=== PATIENT | female | born 1965 | race African-American/Black ===

== ENCOUNTER 2017-05-30 17:45 | Emergency (ER) | payer OTHER, MEDICARE, MEDICAID ==
[2017-05-30 18:13] LABS: #Basophils 0.1 thou/uL (0.0-0.2); #Eosinphils 0.1 thou/uL (0.0-0.7); #Lymphocytes 2.8 thou/uL (1.20-3.40); #Monocytes 0.5 thou/uL (0.11-0.59); #Neutrophils 4.9 thou/uL (1.40-6.50); %Basophils 1.3 % (0.0-1.0); %Eosinophils 1.6 % (0.0-10.0); %Lymphocytes 33.2 % (21.0-51.0); %Monocytes 5.5 % (0.0-10.0); Hematocrit 31.9 % (36.0-47.0); Mean Platelet Volume 7.6 fL (7.4-10.4); Red Blood Cell (RBC) Count 3.63 mill/uL (4.20-5.40); White Blood Cell (WBC) Count 8.4 thou/uL (4.8-10.8)
[2017-05-30 18:41] LABS: ALT (SGPT) 7 U/L (8-55); AST (SGOT) 17 U/L (5-34); Alkaline Phosphatase 55 U/L (40-150); Anion Gap 18 mmol/L (10-20); BUN (Urea Nitrogen) 41 mg/dL (9.8-20.1); Bilirubin, Total 0.5 mg/dL (0.2-1.2); Calc. Creatinine Clearance 0 mL/min (70-130); Calcium 9.7 mg/dL (7.8-10.44); Carbon Dioxide 23 mmol/L (22-29); Chloride 104 mmol/L (98-107); Estimated GFR-MDRD 8; Globulin 4.3 g/dL (2.4-3.5); Protein, Total 8.4 g/dL (6.0-8.3)
[2017-05-30] MEDS ORDERED: Lorazepam 2 MG/ML VIAL ONE (18:56)
--- NOTE | 2017-05-30 19:25 | RAD ---
CHEST ONE VIEW PORTABLE: HISTORY: A 51-year-old female with dyspnea. COMPARISON: 10/19/2016. FINDINGS: Monitor leads overlie the chest. Right dual-lumen venous access catheter. Mild stable linear paren chymal changes in the left mid lung zone and right base. No confluent pneumonia, overt edema, or pl eural effusion. IMPRESSION: Minimal stable linear chronic changes bilaterally. No acute intrathoracic disease. POS: MONTY
== END 2017-05-30 19:32 | disposition home or self-care (01) ==
LOC: ERS 17:45
DX: R51 Headache (principal); R09.81 Nasal congestion; I12.9 Hypertensive chronic kidney disease with stage 1 through stage 4 chronic kidney disease, or unspecified chronic kidney disease; N18.9 Chronic kidney disease, unspecified; F20.9 Schizophrenia, unspecified; F31.9 Bipolar disorder, unspecified; F41.9 Anxiety disorder, unspecified
CPT/HCPCS: 71010; 80053; 85025; 93005; 96374; J2060

== ENCOUNTER 2017-07-21 00:45 | Observation (INO) | payer MEDICARE, MEDICAID ==
[2017-07-21 01:35] LABS: #Basophils 0.1 thou/uL (0.0-0.2); #Eosinphils 0.1 thou/uL (0.0-0.7); #Lymphocytes 3.3 thou/uL (1.20-3.40); #Monocytes 0.5 thou/uL (0.11-0.59); #Neutrophils 4.4 thou/uL (1.40-6.50); %Basophils 1.1 % (0.0-1.0); %Eosinophils 1.1 % (0.0-10.0); %Lymphocytes 39.2 % (21.0-51.0); %Monocytes 6.4 % (0.0-10.0); Hematocrit 36.5 % (36.0-47.0); Mean Platelet Volume 7.7 fL (7.4-10.4); Red Blood Cell (RBC) Count 4.02 mill/uL (4.20-5.40); White Blood Cell (WBC) Count 8.5 thou/uL (4.8-10.8)
[2017-07-21 01:40] LABS: PTT 29.4 SEC (22.9-36.1); Prothrombin Time 14.1 SEC (12.0-14.7)
[2017-07-21 01:53] LABS: Anion Gap 15 mmol/L (10-20); BUN (Urea Nitrogen) 45 mg/dL (9.8-20.1); Calc. Creatinine Clearance 0 mL/min (70-130); Calcium 9.8 mg/dL (7.8-10.44); Carbon Dioxide 20 mmol/L (22-29); Chloride 109 mmol/L (98-107); Estimated GFR-MDRD 6
[2017-07-21] MEDS ORDERED: Acetaminophen 500 MG TAB ONE (03:18)
[2017-07-21] MEDS ORDERED: Ondansetron ODT 4 MG TAB SL PRN (04:17)
[2017-07-21] MEDS ORDERED: Ondansetron HCl/PF 4 MG/2 ML Vial IVP PRN ×2 (04:17→07:12)
[2017-07-21] MEDS ORDERED: hydrALAZINE 20 MG/ML VIAL SLOW IVP PRN (07:12)
[2017-07-21] MEDS ORDERED: Zolpidem Tartrate 5 MG TAB PO PRN (07:12)
[2017-07-21] MEDS ORDERED: Ondansetron ODT 4 MG TAB PO PRN (07:12)
[2017-07-21] MEDS ORDERED: Senokot 8.6 MG TAB PO PRN (07:12)
[2017-07-21] MEDS ORDERED: Diabetic Tussin 200 MG/10 ML UDCUP PO PRN (07:12)
[2017-07-21] MEDS ORDERED: Chloraseptic Spray 180 ml Bottle PO PRN (07:12)
[2017-07-21] MEDS ORDERED: Mag-Al 1200 mg/1200 mg/30 ML UDCUP PO PRN (07:12)
[2017-07-21] MEDS ORDERED: Milk Of Magnesia 30 ML UDCUP PO PRN (07:12)
[2017-07-21] MEDS ORDERED: Artificial Tear Sol 15 ML BOT EA EYE PRN (07:12)
[2017-07-21] MEDS ORDERED: Sodium Chloride 0.65% Nasal 44 ML BOT EA NARE PRN (07:12)
[2017-07-21] MEDS ORDERED: Eucerin (Mineral Oil/Petrolatum,White) 30 gm Jar TOP PRN (07:12)
[2017-07-21] MEDS ORDERED: Loperamide HCl 2 MG CAP PO PRN (07:12)
[2017-07-21] MEDS ORDERED: Acetaminophen 325 MG TAB PO PRN (07:12)
[2017-07-21] MEDS ORDERED: Loratadine 10 MG TAB PO PRN (07:12)
[2017-07-21] MEDS ORDERED: ALPRAZolam 0.25 MG TAB PO PRN (07:12)
[2017-07-21] MEDS ORDERED: HYDROcodone/Acetaminophen 7.5/325 mg Tablet PO PRN (07:12)
[2017-07-21 07:56] VITALS: BP 154/89; TEMP 97.7
[2017-07-21] MEDS ORDERED: Carvedilol 25 MG TAB PO SCH (09:00)
--- NOTE | 2017-07-21 13:44 | SS ---
DATE OF ADMISSION: 07/21/2017 DATE OF DISCHARGE: 07/21/2017 PRIMARY CARE PHYSICIAN: Mateo call admission. PRIMARY MANAGEMENT TRAINEE: Opal Gasca M.D. REASON FOR ADMISSION: AV fistula malfunction. HISTORY OF PRESENT ILLNESS: A 51-year-old -Trist[place] female, who has end-stage renal disease, normally gets her dialysis as an outpatient basis on Tuesday, Tuesday, and Tuesday. The patient repo rted to me that because of holiday season her dialysis session was just changed this week to Tuesday, Tuesday, and Tuesday. The patient's next dialysis is tomorrow, last dialysis was on Tuesday. Normally , the patient reports that whenever she wakes up she checks on her dialysis site, and normally she ge ts thrill palpable, but yesterday, she was not able to feel any thrill, and she was feeling hard note on the dialysis AV fistula site and that is why the patient decided to come to the emergency room. Initially, she called Dr. Gasca, who advised her to go to the ER for evaluation. In the emergency room, the patient was found with dialysis access site was not working and that is wh y we admitted this patient in the hospital for observation. The patient was admitted from the emerge ncy room around 3:56 a.m., I saw this patient in the morning around 7:00 a.m. At that time, the patient was willing to go home later on today after dialysis access site fixed. Vargas bsequently, she changed her mind because dialysis access site will be fixed later on today because of holiday, and she was not happy with that, and she decided to leave against medical advice. I tried to explain her very well to stay in the hospital so we can fix her dialysis shunt, but she wa s not able to pursue, and she decided to leave against medical advice. ALLERGIES: PENICILLIN. CURRENT HOME MEDICATION: Xanax 0.5 mg p.o. b.i.d. p.r.n., Lipitor 20 mg p.o. at bedtime, Coreg 25 mg p.o. b.i.d., and Catapres 0.3 mg p.o. daily. REVIEW OF SYSTEMS: The following complete review of systems was negative, unless otherwise mentioned in the HPI or below: Constitutional: Weight loss or gain, ability to conduct usual activities. Skin: Rash, itching. Eyes: Double vision, pain. ENT/Mouth: Nose bleeding, neck stiffness, pain, tenderness. Cardiovascular: Palpitations, dyspnea on exertion, orthopnea. Respiratory: Shortness of breath, wheezing, cough, hemoptysis, fever or night sweats. Gastrointestinal: Poor appetite, abdominal pain, heartburn, nausea, vomiting, constipation, or diarr hea. Genitourinary: Urgency, frequency, dysuria, nocturia. Musculoskeletal: Pain, swelling. Neurologic/Psychiatric: Anxiety, depression. Allergy/Immunologic: Skin rash, bleeding tendency. Please see my HPI for pertinent positives and negatives. All other review of systems reviewed and ne gative except as mentioned in the HPI. PAST MEDICAL HISTORY: End-stage renal disease on hemodialysis, hypertension, medication noncomplianc e, and anemia of renal disease. PAST PSYCHIATRIC HISTORY: Anxiety, depression, bipolar disorder, history of admission for psychiatri c problem. PAST SURGICAL HISTORY: Left knee surgery and meniscal repair, AV fistula, history of uterine ablatio n. SOCIAL HISTORY: The patient denies any tobacco, alcohol, or illicit drug abuse. She is not working. She lives at home. FAMILY HISTORY: No strong family history of premature coronary artery disease, stroke, or cancer. EMERGENCY ROOM COURSE: Reviewed. PHYSICAL EXAMINATION: VITAL SIGNS: On arrival, blood pressure 142/101, pulse 66, respiratory rate 16, temperature 97.8, sa turation 98% on room air, weight 74.8 kilograms. GENERAL: The patient is currently alert, awake, no obvious acute distress. HEAD: Normocephalic, atraumatic. EYES: Pupils round, reactive to light. Extraocular muscles intact. ENT: Oropharynx within normal limits. Moist mucous membranes. No oral lesions, no pharyngeal eryth dale, no exudate. NECK: Supple, no JVD, no thyromegaly, no carotid bruits. No meningeal signs. LUNGS: Clear to auscultation without any rhonchi or rales. CARDIAC: S1, S2 regular. No murmur, no gallop, no rub. ABDOMEN: Soft, bowel sounds present, nontender, nondistended. No organomegaly, no mass, no suprapub ic tenderness. BACK: Unremarkable. No CVA tenderness. EXTREMITIES: Upper extremity dialysis shunt site with no palpable thrill, swelling noted, distal pul sation intact. Range of motion is normal. Right upper extremity within normal limits. Lower extrem ity, no edema. Good peripheral pulsation. No calf tenderness. SKIN: No skin rash. HEMATOLOGIC: No lymphadenopathy. PSYCHIATRIC: Normal affect. NEUROLOGIC: Nonfocal examination. SIGNIFICANT LABS: EKG based on my review reveals normal sinus rhythm, first degree AV block. CBC: WBC 8.5, hemoglobin 11.9, platelets 177. INR 1.1. BMP: Sodium 139, potassium 5.2, chloride 109, ca rbon dioxide 20, anion gap 15, BUN 45, creatinine 8.49, calcium 9.8. ASSESSMENT AND PLAN: 1. AV fistula malfunction, this patient does not have any palpable thrill over AV fistula site, susp ected for thrombosis of AV fistula. At this point, patient will need fistulogram and subsequent repa ir by interventional radiologist. If it is not possible repair by them, then she will need surgical evaluation. We are consulting Dr. Gsaca for also evaluation. 2. At this point, the patient decided to leave against medical advice, and I tried to explain her ab out plan of care, but she did not pursue and left against medical advice. 3. Hypertension. Patient will continue Coreg 25 mg twice daily and clonidine 0.3 mg p.o. daily. 4. Dyslipidemia. We will continue Lipitor 20 mg p.o. at bedtime. 5. For anxiety and depression, continue Xanax 0.5 mg p.o. b.i.d. p.r.n. 6. Anemia of renal disease. The patient will need Procrit with the dialysis. 7. End-stage renal disease, on hemodialysis on Tuesday, Tuesday, Tuesday, associated with mild hyper kalemia, mild metabolic acidosis, and anemia of renal disease. The patient is advised to follow up w elyse Gasca. DISCHARGE DISPOSITION: Against medical advice. PRIMARY DISCHARGE DIAGNOSIS: AV fistula malfunction. SECONDARY DISCHARGE DIAGNOSES: Anemia of renal disease, hypertension, anxiety, depression, bipolar d isorder, end-stage renal disease, on hemodialysis, dyslipidemia. PRIMARY PROCEDURES AND OPERATIONS: None. RADIOLOGICAL INVESTIGATION: None. DISCHARGE MEDICATIONS: The patient will resume her home medication. CONTRAINDICATIONS: None. CODE STATUS: FULL CODE. INPATIENT CONSULTANTS: Dr. Gasca. TEST RESULTS PENDING ON DISCHARGE: None. DISCHARGE PLAN: Post hospital, the patient will follow up with Dr. Gasca. HOSPITAL COURSE: Please see my HPI above.
[2017-07-21] MEDS ORDERED: cloNIDine 0.3 MG TAB PO SCH (21:00)
[2017-07-21] MEDS ORDERED: Atorvastatin Calcium 20 MG TAB PO SCH (21:00)
== END 2017-07-21 09:06 | disposition left against medical advice (07) ==
LOC: ERS 00:45 → 2SW 03:56
PROVIDERS: ADMIT Internal Medicine; ATTEND Internal Medicine
DX: T82.590A Other mechanical complication of surgically created arteriovenous fistula, initial encounter (principal); I12.0 Hypertensive chronic kidney disease with stage 5 chronic kidney disease or end stage renal disease; N18.6 End stage renal disease; F41.9 Anxiety disorder, unspecified; F31.9 Bipolar disorder, unspecified; D63.1 Anemia in chronic kidney disease; Z91.14 Patient's other noncompliance with medication regimen; Z99.2 Dependence on renal dialysis; Z79.899 Other long term (current) drug therapy; Z88.0 Allergy status to penicillin; Z98.890 Other specified postprocedural states
CPT/HCPCS: 36415; 80048; 85025; 85610; 85730; 93005

== ENCOUNTER 2017-10-09 15:47 | Observation (INO) | payer MEDICARE, MEDICAID ==
[2017-10-09] MEDS ORDERED: Labetalol HCl 100 MG/20 ML VIAL ONE (16:21)
[2017-10-09 16:42] LABS: #Basophils 0.1 thou/uL (0.0-0.2); #Eosinphils 0.1 thou/uL (0.0-0.7); #Lymphocytes 2.9 thou/uL (1.20-3.40); #Monocytes 0.5 thou/uL (0.11-0.59); #Neutrophils 5.9 thou/uL (1.40-6.50); %Basophils 0.9 % (0.0-1.0); %Eosinophils 1.1 % (0.0-10.0); %Lymphocytes 30.7 % (21.0-51.0); %Monocytes 5.2 % (0.0-10.0); %Neutrophils 62.1 % (42.0-75.0); Hemoglobin 11.7 g/dL (12.0-16.0); Mean Corpuscular HGB CONC 31.7 g/dL (32.0-36.0); Mean Corpuscular Hemoglobin 27.5 pg (27.0-31.0); Mean Corpuscular Volume 86.6 fl (81.0-99.0); Mean Platelet Volume 8.1 fL (7.4-10.4); Platelet Count 283 thou/uL (130-400); RBC Distribution Width 15.9 % (11.5-14.5); Red Blood Cell (RBC) Count 4.24 mill/uL (4.20-5.40); White Blood Cell (WBC) Count 9.6 thou/uL (4.8-10.8)
--- NOTE | 2017-10-09 16:51 | RAD ---
PORTABLE CHEST: History: Shortness of breath, hypertension. Comparison: 05-30-17 FINDINGS: Heart size appears slightly enlarged. Aorta is mildly tortuous. The lungs are clear of infiltrates. T here are no signs of failure. IMPRESSION: Minimal cardiomegaly. POS: PANFILO
[2017-10-09 16:58] LABS: ALT (SGPT) 10 U/L (8-55); AST (SGOT) 14 U/L (5-34); Albumin 3.6 g/dL (3.5-5.0); Alkaline Phosphatase 52 U/L (40-150); Anion Gap 16 mmol/L (10-20); BUN (Urea Nitrogen) 55 mg/dL (9.8-20.1); Bilirubin, Total 0.4 mg/dL (0.2-1.2); Calc. Creatinine Clearance 0 mL/min (70-130); Calcium 9.3 mg/dL (7.8-10.44); Carbon Dioxide 17 mmol/L (22-29); Chloride 113 mmol/L (98-107); Estimated GFR-MDRD 5; Globulin 3.8 g/dL (2.4-3.5); Glucose 98 mg/dL (70-105); Potassium 4.9 mmol/L (3.5-5.1); Protein, Total 7.4 g/dL (6.0-8.3); Sodium 141 mmol/L (136-145)
[2017-10-09 17:01] LABS: CKMB 0.8 ng/mL (0-6.6); Troponin I 0.025 ng/mL (< 0.028)
[2017-10-09] MEDS ORDERED: hydrALAZINE 20 MG/ML VIAL ONE (17:18)
[2017-10-09] MEDS ORDERED: Acetaminophen 500 MG TAB ONE (18:24)
[2017-10-09] MEDS ORDERED: Ondansetron HCl/PF 4 MG/2 ML Vial ONE (18:41)
[2017-10-09] MEDS ORDERED: cloNIDine 0.1 MG TAB ONE (18:51)
[2017-10-09] MEDS ORDERED: hydrALAZINE 20 MG/ML VIAL SLOW IVP PRN (19:54)
[2017-10-09 20:17] LABS: HBSAg Index 0.16 S/CO (0-0.99); Hep B Surf Ag Non-Reactive S/CO (NonReactive)
[2017-10-09] MEDS ORDERED: ALPRAZolam 0.25 MG TAB PO PRN (20:24)
[2017-10-09] MEDS ORDERED: Famotidine/PF 20 mg/2ml Vial SLOW IVP SCH (21:30)
[2017-10-09] MEDS ORDERED: Heparin 5,000 UNITS/ML VIAL SC SCH (21:30)
[2017-10-09] MEDS: Atorvastatin Calcium 20 MG TAB PO SCH (22:10)
[2017-10-09] MEDS: NIFEdipine XL 60 MG TAB PO SCH (22:11)
[2017-10-09] MEDS: Carvedilol 25 MG TAB PO SCH (22:11)
[2017-10-09] MEDS: Ondansetron HCl/PF 4 MG/2 ML Vial SLOW IVP PRN (22:12)
[2017-10-09] MEDS: Heparin 5,000 UNITS/ML VIAL SC SCH (22:15)
[2017-10-09 22:25] VITALS: BMI 27.5
[2017-10-09 22:39] LABS: Amphetamine Not Detected (NotDetected); Barbiturates Screen Not Detected (NotDetected); Benzodiazepine Screen Not Detected (NotDetected); Cocaine Metabolite Screen Detected (NotDetected); Medtox Control Line Valid? VALID (VALID); Medtox Reader # READER 4; Methadone Not Detected (NotDetected); Methamphetamine Not Detected (NotDetected); Opiate Screen Detected (NotDetected); Oxycodone Screen Not Detected (NotDetected); Phencyclidine (PCP) Not Detected (NotDetected); THC/Cannabinoid Screen Not Detected (NotDetected); Tricyclic Screen Not Detected (NotDetected)
--- NOTE | 2017-10-10 02:07 | HP ---
DATE OF ADMISSION: 10/09/2017 CHIEF COMPLAINT: Headache. HISTORY OF PRESENT ILLNESS: This is a 52-year-old -[place] female with known history of end- stage renal disease and on hemodialysis. The patient is a known patient to Dr. Gasca. She has rec ently been suffering with cough and congestion and on Tuesday she missed her dialysis because of not f eeling well. She was also recently started on amlodipine and her clonidine was stopped. She believe s that after starting the amlodipine, she started having some severe headaches and her headache she r ates as 9/10 on intensity, not associated with nausea or vomiting. She denies taking any drugs, but has a past history of cocaine use. Urine drug screen was not done and is pending at this time. She denies having any chest pain, no nausea, no vomiting, no diarrhea, no constipation. She is not a [facility] smoker, but she drinks alcohol occasionally. PAST MEDICAL HISTORY: 1. Hypertension. 2. Anxiety. 3. End-stage renal disease. PAST SURGICAL HISTORY: 1. The patient had ablation of uterine fibroids. 2. The patient had a left AV access which she uses for dialysis. SOCIAL HISTORY: The patient is not a known smoker. She does drink alcohol occasionally. She drinks beer. She did not drink recently. The patient has a history of cocaine abuse in the past, but she denies taking any illicit drug use at this time. FAMILY HISTORY: No significant family history of coronary artery disease. HOME MEDICATIONS: 1. Alprazolam 0.25 mg p.o. b.i.d. 2. Atorvastatin 20 mg p.o. at bedtime. 3. Coreg 25 mg p.o. b.i.d. 4. Amlodipine 5 mg daily. ALLERGIES: PENICILLIN. REVIEW OF SYSTEMS: All 12 systems are reviewed with the patient thoroughly and found to be negative at this time except the ones described in HPI. PHYSICAL EXAMINATION: VITAL SIGNS: Blood pressures are 230/130, heart rate is 88, respiratory rate is 18, saturation is 98 % on room air. GENERAL: The patient is moderately built and moderately nourished. She appears to be in mild distre ss with headache. HEENT: Atraumatic, normocephalic. PERRLA. Extraocular movements were intact. Oral mucosa is pink and moist. CARDIOVASCULAR: S1, S2 normal. No murmurs, rubs or gallops. LUNGS: Bilateral air entry was equal. No wheezing, no crackles. ABDOMEN: Soft, nontender. No guarding or rebound tenderness. Bowel sounds normal. MUSCULOSKELETAL: No calf tenderness. No pedal edema. No joint tenderness, no joint swelling. SKIN: No cyanosis, no edema, no rash, no pallor. LYMPHATICS: No evidence of any generalized lymph nodes were noted. PSYCHIATRIC: No sense of suicidal ideation. No signs of marco was noted. LABORATORY DATA: WBC 9.6, hemoglobin 11.7, hematocrit 36.7, platelets are 283. Sodium 141, potassiu m 4.9, chloride is 113, BUN is 55, creatinine is 9.62. Chest x-ray was done. No evidence of any acute cardiopulmonary process. ASSESSMENT AND PLAN: 1. Uncontrolled hypertension with hypertensive urgency. 2. End-stage renal disease on hemodialysis, missed a dialysis day. 3. History of illicit drug use. 4. Anxiety. 5. Intractable headache. PLAN: 1. To admit this patient for emergent dialysis as the patient has missed her dialysis which could be contributing to her high blood pressures at this time. The patient did not have any end organ damag e at this time. We will treat the patient with the Procardia 60 mg p.o. daily. This is as per Nephr ology recommendations. We will do hydralazine 20 mg IV q.6 h. for blood pressures more than 160. Bu t most likely blood pressures should come down with dialysis, which is being started now. 2. The patient has intractable headache. The patient has a history of cocaine use. We will do a ur ine drug screen. If the patient's headache is getting worse, may need to order a CT of the head to r ule out any evidence of subarachnoid hemorrhage. 3. We will closely monitor at this time. 4. Patient has history of anxiety. She is on alprazolam. We will restart her home medications. 5. DVT prophylaxis. Heparin 5000 subcu b.i.d. I spent 75 minutes of this patient.
[2017-10-10 04:54] LABS: #Basophils 0.1 thou/uL (0.0-0.2); #Eosinphils 0.1 thou/uL (0.0-0.7); #Lymphocytes 2.9 thou/uL (1.20-3.40); #Monocytes 0.4 thou/uL (0.11-0.59); #Neutrophils 5.5 thou/uL (1.40-6.50); %Basophils 0.9 % (0.0-1.0); %Eosinophils 1.1 % (0.0-10.0); %Lymphocytes 32.2 % (21.0-51.0); %Monocytes 4.6 % (0.0-10.0); %Neutrophils 61.1 % (42.0-75.0); Hemoglobin 10.3 g/dL (12.0-16.0); Mean Corpuscular HGB CONC 31.6 g/dL (32.0-36.0); Mean Corpuscular Hemoglobin 27.5 pg (27.0-31.0); Mean Corpuscular Volume 86.8 fl (81.0-99.0); Mean Platelet Volume 8.4 fL (7.4-10.4); Platelet Count 216 thou/uL (130-400); RBC Distribution Width 15.8 % (11.5-14.5); Red Blood Cell (RBC) Count 3.77 mill/uL (4.20-5.40)
[2017-10-10 05:16] LABS: Anion Gap 13 mmol/L (10-20); BUN (Urea Nitrogen) 59 mg/dL (9.8-20.1); Calc. Creatinine Clearance 7 mL/min (70-130); Calcium 8.8 mg/dL (7.8-10.44); Carbon Dioxide 19 mmol/L (22-29); Chloride 111 mmol/L (98-107); Estimated GFR-MDRD 5; Glucose 105 mg/dL (70-105); Potassium 4.9 mmol/L (3.5-5.1); Sodium 138 mmol/L (136-145)
--- NOTE | 2017-10-10 06:36 | CON ---
DATE OF CONSULTATION: 10/09/2017 CONSULTING PHYSICIAN: REASON FOR CONSULTATION: REASON FOR ADMISSION: Headache. HISTORY OF PRESENT ILLNESS: A 52-year-old female with history of end-stage renal disease, hypertensi on, substance abuse in the past, anemia, came to the hospital with headache and was found to be hyper tensive with blood pressure 230/110. No nausea, vomiting. Patient was having poor appetite, was not eating well. Her labs are stable for a dialysis patient. No fever or chills. No chest pain report ed. PAST MEDICAL HISTORY: Positive for end-stage renal disease, anxiety, bipolar, hypertension and anemi a. PAST SURGICAL HISTORY: Left knee surgery, and AV fistula placement and uterine ablation. HOME MEDICATIONS: Not available now. She used to take clonidine which was stopped 2 weeks back. Xa nax, atorvastatin, and carvedilol. ALLERGIES: PENICILLIN. SOCIAL HISTORY: No smoking, alcohol, or illicit drug abuse. History of substance abuse in the past. FAMILY HISTORY: No history of any kidney disease. REVIEW OF SYSTEMS: The following complete review of systems was negative, unless otherwise mentioned in the HPI or below: Constitutional: Weight loss or gain, ability to conduct usual activities. Skin: Rash, itching. Ey es: Double vision, pain. ENT/Mouth: Nose bleeding, neck stiffness, pain, tenderness. Cardiovascul ar: Palpitations, dyspnea on exertion, orthopnea. Respiratory: Shortness of breath, wheezing, coug h, hemoptysis, fever or night sweats. Gastrointestinal: Poor appetite, abdominal pain, heartburn, n ausea, vomiting, constipation, or diarrhea. Genitourinary: Urgency, frequency, dysuria, nocturia. Musculoskeletal: Pain, swelling. Neurologic/Psychiatric: Anxiety, depression. Allergy/Immunologic : Skin rash, bleeding tendency. PHYSICAL EXAMINATION: GENERAL: This is a well-built -[place]ish female in no apparent distress. VITAL SIGNS: Temperature 96, pulse 70, respiratory 18, blood pressure 230/110 on arrival. HEENT: Atraumatic, normocephalic. Oral mucosa is moist. NECK: Supple, no masses. HEART: S1, S2 heard. Rate and rhythm regular. RESPIRATORY: Clear. ABDOMEN: Soft. MUSCULOSKELETAL: No tenderness, no edema. DERMATOLOGIC: No skin rash. NEUROLOGIC: Alert and awake. PSYCHIATRIC: Mood and affect normal. LABORATORY DATA: Hemoglobin is 11.7, potassium is 4.9, BUN is 55, creatinine is 9.6. ASSESSMENT AND PLAN: 1. End-stage renal disease. We will continue on dialysis as tolerated. 2. Hypertension. We will have dialysis today. Plan is to have dialysis today and then continue andrew lysis Tuesday, Tuesday, and Tuesday. 3. Acidosis. We will have dialysis. 4. Edema, controlled. 5. Fluid overload, stable. 6. Anemia, mild. 7. Hyperkalemia, controlled. Plan is to continue on dialysis as tolerated. Thank you for the consult.
[2017-10-10] MEDS: Carvedilol 25 MG TAB PO SCH ×2 (08:43→20:51)
[2017-10-10] MEDS: Heparin 5,000 UNITS/ML VIAL SC SCH ×3 (08:44→20:51)
--- NOTE | 2017-10-10 10:36 | PRG ---
DATE OF SERVICE: 10/10/2017 SUBJECTIVE: This is a 52-year-old female being seen for end-stage renal disease. The patient denies any nausea, vomiting or chest pain. PHYSICAL EXAMINATION: GENERAL: Patient is awake, alert. VITAL SIGNS: Afebrile, pulse 81, breathing at 16, blood pressure 127/76. HEAD/NECK: Normocephalic. Atraumatic. EYES: EOMI. No deformity. EARS: Clear. No ulcers. NOSE: Intact. No lesions. MOUTH: Clear. No discharge. THROAT: Clear. No exudate. LUNGS: Clear. No crackles. CARDIAC: S1, S2. No rub. ABDOMEN: Benign. BS+. GENITALIA/RECTUM: Hernandez absent. BACK/EXTREMITIES: Edema 0+ Ulcer- NEUROLOGICAL: Alert and motor intact. SKIN: Rash- Bruise- LYMPHATICS: Edema- Ulcer- LABORATORY DATA: Hemoglobin 10.3, potassium is 4.8. ASSESSMENT AND RECOMMENDATIONS: 1. Stage 6 chronic kidney disease, plan hemodialysis. 2. Hypertension, stable. 3. Anemia, stable. 4. Medications based on glomerular filtration rate are appropriate.
[2017-10-10] MEDS ORDERED: Fentanyl 100 MCG/2 ML VIAL ONE (11:13)
[2017-10-10] MEDS ORDERED: Iopamidol 300 61% 50 ML VIAL FS ONE (11:18)
[2017-10-10] MEDS ORDERED: Activase 2 MG VIAL CATH ONE (11:45)
[2017-10-10] MEDS: HYDROcodone/Acetaminophen 5/325 mg Tablet PO PRN (20:50)
[2017-10-10] MEDS: Atorvastatin Calcium 20 MG TAB PO SCH (20:51)
[2017-10-10] MEDS: NIFEdipine XL 60 MG TAB PO SCH (20:51)
[2017-10-10] MEDS ORDERED: Famotidine/PF 20 mg/2ml Vial SLOW IVP SCH (21:00)
[2017-10-10] MEDS ORDERED: hydrALAZINE 20 MG/ML VIAL SLOW IVP PRN (21:19)
[2017-10-10] MEDS ORDERED: cloNIDine 0.1 MG TAB PO PRN (21:19)
--- NOTE | 2017-10-10 21:25 | PDOC.PN ---
- Subjective Encounter Start Date: 10/10/17 Encounter Start Time: 13:00 Patient seen and examined. No new complaints. No overnight events - Objective Resuscitation Status: Resuscitation Status FULL:Full Resuscitation MAR Reviewed: Yes Vital Signs & Weight: Vital Signs (12 hours) Temp Pulse Resp BP BP Pulse Ox 10/10/17 20:51 81 120/67 10/10/17 20:03 98.4 F 93 16 120/67 96 Weight Weight 155 lb 4.8 oz Result Diagrams: 10/10/17 04:40 10/10/17 04:40 EKG Reviewed by me: Yes (Tele SR) Phys Exam - Physical Examination Constitutional: NAD Respiratory: no wheezing, no rales, no rhonchi Symmetrical Cardiovascular: RRR, no rub no heaves/pulsations Gastrointestinal: soft, non-tender, no distention, positive bowel sounds Musculoskeletal: no edema Neurological: moves all 4 limbs Psychiatric: A&O x 3 Dx/Plan - Plan DVT proph w/heparin, DVT proph w/SCDs IMPRESSION: 1. Hypertensive crisis 2. Cocaine abuse 3. Volume overload due to missed hemodialysis 4. Dialysis shunt malfunction s/p intervention this admission 5. Anxiety/Depression PLAN: * Dialysis today * Cont to monitor * Cont current HTN meds including Procardia XL/Coreg * BMP in AM * Nephrology following Review of Systems - Review of Systems Respiratory: negative: Cough, Dry, Shortness of Breath, Hemoptysis, SOB with Excertion, Pleuritic Pain, Sputum, Wheezing Cardiovascular: negative: chest pain, palpitations, orthopnea, paroxysmal nocturnal dyspnea, edema, light headedness - Medications/Allergies Allergies/Adverse Reactions: Allergies Allergy/AdvReac Type Severity Reaction Status Date / Time Penicillins Allergy Verified 10/10/17 00:21 morphine AdvReac Verified 10/10/17 00:21 Medications: Current Medications Hydrocodone Bitart/Acetaminophen ([place] 5/325) 1 tab PO Q4H PRN PRN Reason: Moderate Pain (4-6) Last Admin: 10/10/17 20:50 Dose: 1 tab Alprazolam (Xanax) 0.5 mg PO BIDPRN PRN PRN Reason: Anxiety Atorvastatin Calcium (Lipitor) 20 mg PO HS LESLIE Last Admin: 10/10/17 20:51 Dose: 20 mg Carvedilol (Coreg) 25 mg PO BID LESLIE Last Admin: 10/10/17 20:51 Dose: 25 mg Clonidine (Catapres) 0.1 mg PO Q4H PRN PRN Reason: Systolic BP > 180 Hydralazine HCl (Apresoline) 20 mg SLOW IVP Q6H PRN PRN Reason: systolic >160 Hydralazine HCl (Apresoline) 10 mg SLOW IVP Q4H PRN PRN Reason: SBP Greater Than 180 Nifedipine (Procardia Xl) 60 mg PO 2100 [facility] Last Admin: 10/10/17 20:51 Dose: 60 mg Ondansetron HCl (Zofran) 4 mg SLOW IVP Q4H PRN PRN Reason: Nausea/Vomiting Last Admin: 10/09/17 22:12 Dose: 4 mg
[2017-10-11 05:30] LABS: Anion Gap 16 mmol/L (10-20); BUN (Urea Nitrogen) 37 mg/dL (9.8-20.1); Calc. Creatinine Clearance 9 mL/min (70-130); Carbon Dioxide 25 mmol/L (22-29); Chloride 103 mmol/L (98-107); Estimated GFR-MDRD 7; Glucose 99 mg/dL (70-105); Potassium 4.2 mmol/L (3.5-5.1); Sodium 140 mmol/L (136-145)
[2017-10-11] MEDS: HYDROcodone/Acetaminophen 5/325 mg Tablet PO PRN ×2 (05:56→11:18)
[2017-10-11] MEDS: Carvedilol 25 MG TAB PO SCH (08:32)
--- NOTE | 2017-10-11 10:17 | PDOC.PN ---
- Subjective Encounter Start Date: 10/11/17 Encounter Start Time: 10:14 Patient seen and examined. No new complaints. No overnight events. BP on lower side. Received Procardia XL 60 mg yesterday evening. - Objective Resuscitation Status: Resuscitation Status FULL:Full Resuscitation MAR Reviewed: Yes Vital Signs & Weight: Vital Signs (12 hours) Temp Pulse Resp BP Pulse Ox 10/11/17 08:33 84 87/53 L 10/11/17 07:35 98.0 F 79 20 99/55 L 95 10/11/17 04:28 98.2 F 86 16 109/62 95 Weight Weight 141 lb 4.8 oz I&O: 10/10/17 10/11/17 10/12/17 06:59 06:59 06:59 Intake Total 360 Output Total 750 Balance -390 Result Diagrams: 10/10/17 04:40 10/11/17 04:52 EKG Reviewed by me: Yes (Tele SR earlier. Noncompliant) Phys Exam - Physical Examination Constitutional: NAD Respiratory: no wheezing, no rhonchi Cardiovascular: RRR, no rub Gastrointestinal: soft, non-tender, positive bowel sounds Musculoskeletal: no edema Neurological: moves all 4 limbs Dx/Plan - Plan DVT proph w/SCDs IMPRESSION: 1. Hypertensive crisis - BP now on lower side 2. Cocaine abuse 3. Volume overload due to missed hemodialysis 4. Dialysis shunt malfunction s/p intervention this admission 5. Anxiety/Depression PLAN: * s/p Dialysis * Cont to monitor * Change Procardia XL to 30 mg HS * Change Coreg to 12.5 mg BID (Patient takes Coreg only once daily) * DC later today if BP improves * Nephrology following Review of Systems - Review of Systems Respiratory: negative: Cough, Dry, Shortness of Breath, Hemoptysis, SOB with Excertion, Pleuritic Pain, Sputum, Wheezing Cardiovascular: negative: chest pain, palpitations, orthopnea, paroxysmal nocturnal dyspnea, edema, light headedness - Medications/Allergies Allergies/Adverse Reactions: Allergies Allergy/AdvReac Type Severity Reaction Status Date / Time Penicillins Allergy Verified 10/10/17 00:21 morphine AdvReac Verified 10/10/17 00:21 Medications: Current Medications Hydrocodone Bitart/Acetaminophen ([place] 5/325) 1 tab PO Q4H PRN PRN Reason: Moderate Pain (4-6) Last Admin: 10/11/17 05:56 Dose: 1 tab Alprazolam (Xanax) 0.5 mg PO BIDPRN PRN PRN Reason: Anxiety Atorvastatin Calcium (Lipitor) 20 mg PO HS [facility] Last Admin: 10/10/17 20:51 Dose: 20 mg Carvedilol (Coreg) 25 mg PO BID [facility] Last Admin: 10/11/17 08:32 Dose: Not Given Clonidine (Catapres) 0.1 mg PO Q4H PRN PRN Reason: Systolic BP > 180 Hydralazine HCl (Apresoline) 20 mg SLOW IVP Q6H PRN PRN Reason: systolic >160 Hydralazine HCl (Apresoline) 10 mg SLOW IVP Q4H PRN PRN Reason: SBP Greater Than 180 Nifedipine (Procardia Xl) 30 mg PO HS LESLIE Ondansetron HCl (Zofran) 4 mg SLOW IVP Q4H PRN PRN Reason: Nausea/Vomiting Last Admin: 10/09/17 22:12 Dose: 4 mg
[2017-10-11 12:04] VITALS: TEMP 98.2
[2017-10-11] MEDS: Ondansetron HCl/PF 4 MG/2 ML Vial SLOW IVP PRN (12:45)
--- NOTE | 2017-10-11 12:53 | DIS ---
DATE OF DISCHARGE: 10/11/2017 DISCHARGE DISPOSITION: Home. FOLLOWUP: 1. Follow up with Dr. Galilea Eduardo in 1 week. 2. Follow up with Nephrology, Dr. Dunbar as scheduled. ALLERGIES: The patient is allergic to PENICILLIN and MORPHINE. DISCHARGE MEDICATIONS: Carvedilol 25 mg twice a day, Procardia-XL 30 mg at bedtime, clonidine as nee ded, Xanax as needed. INPATIENT ENVIRONMENTAL LAWYER: Nephrology, Dr. Dunbar. BRIEF HOSPITAL COURSE: The patient is a 52-year-old female with end-stage renal disease on hemodialy sis who presented to the hospital with headache. Her workup was consistent with hypertensive urgency with blood pressure of 230/130. Please note that patient had missed hemodialysis. Her urine drug s creen was positive for cocaine and opiates. Please refer to the history and physical dated 8 for further details. The patient was admitted to the hospital with diagnosis of hypertensive urgency secondary to volume o verload with cocaine abuse. She was found to have a clotted AV fistula. She underwent AV shunt ruchi ogram by Radiology with successful thrombolysis/declot of the left upper extremity dialysis graft. S he underwent hemodialysis yesterday. She received Procardia XL 60 mg last night. Her blood pressure this morning dropped to 99/55 and 87/53. Her last blood pressure was 113/61. We will monitor the p atient for few more hours. She will be discharged later today if her systolic blood pressure is more than 120. Lifestyle modification was emphasized. FINAL DIAGNOSES: 1. Hypertensive crisis. 2. Cocaine abuse. 3. Volume overload due to missed hemodialysis. 4. Dialysis shunt malfunction status post intervention this admission. 5. Anxiety and depression. 6. Medication noncompliance. 7. Metabolic acidosis secondary to missed hemodialysis. 8. Chronic anemia due to renal insufficiency. Plan of care was discussed with the patient in detail. She stated understanding.
--- NOTE | 2017-10-11 13:57 | SPC ---
LEFT UPPER EXTREMITY DIALYSIS GRAFT FISTULOGRAM VASCULAR ACCESS X 2 BALLOON ANGIOPLASTY LEFT UPPER DIALYSIS GRAFT/VENOUS OUTFLOW THROMBOLISIS/DECLOT LEFT UPPER EXTREMITY DIALYSIS GRAFT: History: Renal failure. Clotted dialysis graft. Fluoro time: 4 minutes. FINDINGS: After explaining the procedure and answering all of the questions, the left upper extremity was prepp ed and draped in the usual sterile fashion. Sterile technique, buffered local anesthesia, and a 22 ga uge needle were used to carefully access the left upper arm dialysis graft just above the antecubital fossa, directed towards the venous outflow. A 5 Indonesian micropuncture sheath was placed. Limited imag ing showed extensive clot throughout the graft. A short 6 Indonesian sheath was placed. A 5 Indonesian glide cath was advanced over a glide wire for serial imaging, showing clot throughout the graft. The axilla ry, subclavian, and superior vena cava were patent. A second access was acquired near the venous end of the graft, directed toward the arterial end flow. The 5 Indonesian catheter was carefully advanced to the arterial anastomosis that were shown to be patent with limited imaging. A 5 mm balloon was then placed just across the arterial anastomosis, inflated and carefully withdrawn into the arterial origin of the graft to achieve hemostasis while thrombolysis was performed. Medication: 4 milligram recumbent TPA. 2000 units Heparin. Medication was laced throughout the entire ty of the graft clot. A 5 mm x 4 cm balloon was then advanced to the venous outflow and inflated, achieving balloon profile at the venous anastomosis and throughout the graft. The Fogerty balloon was then used to sweep the arterial half of the graft. Balloon was deflated, rest oring full blood flow throughout the graft. Final imaging was performed showing vigorous arterial lisa w. Sheaths were removed and hemostasis was obtained using direct pressure. Patient tolerated the procedu re well and was returned in unchanged condition. IMPRESSION: Technically successful thrombolysis/declot of left upper extremity dialysis graft with bone angioplas ty. Full arterial flow was restored.
[2017-10-11 15:20] VITALS: BP 112/68
--- NOTE | 2017-10-11 15:57 | PRG ---
DATE OF SERVICE: 10/11/2017 SUBJECTIVE: This is a 52-year-old female being seen for end-stage renal disease. The patient denies any nausea, vomiting, or chest pain. PHYSICAL EXAMINATION: GENERAL: Patient is awake, alert. VITAL SIGNS: Afebrile, pulse 96, breathing at 16, blood pressure 139/61. HEAD/NECK: Normocephalic. Atraumatic. EYES: EOMI. No deformity. EARS: Clear. No ulcers. NOSE: Intact. No lesions. MOUTH: Clear. No discharge. THROAT: Clear. No exudate. LUNGS: Clear. No crackles. CARDIAC: S1, S2. No rub. ABDOMEN: Benign. BS+. GENITALIA/RECTUM: Hernandez absent. BACK/EXTREMITIES: Edema 0+ Ulcer- NEUROLOGICAL: Alert and motor intact. SKIN: Rash- Bruise- LYMPHATICS: Edema- Ulcer- LABORATORY DATA: Show hemoglobin 10.3. ASSESSMENT AND RECOMMENDATIONS: 1. Stage 6 chronic kidney disease, continue hemodialysis. 2. Hypertension, stable. 3. Anemia, stable. 4. Medications based on glomerular filtration rate are appropriate.
[2017-10-11] MEDS ORDERED: Carvedilol 6.25 MG TAB PO SCH (17:00)
[2017-10-11] MEDS ORDERED: NIFEdipine XL 30 MG TAB PO SCH (21:00)
== END 2017-10-11 16:16 | disposition home or self-care (01) ==
LOC: ERS 15:47 → 2SW 20:23
PROVIDERS: ADMIT Family Medicine; ATTEND Family Medicine
DX: I16.0 Hypertensive urgency (principal); I12.0 Hypertensive chronic kidney disease with stage 5 chronic kidney disease or end stage renal disease; N18.6 End stage renal disease; T82.598A Other mechanical complication of other cardiac and vascular devices and implants, initial encounter; D63.1 Anemia in chronic kidney disease; F14.10 Cocaine abuse, uncomplicated; E87.79 Other fluid overload; F41.8 Other specified anxiety disorders; E87.2 Acidosis; Z88.0 Allergy status to penicillin; Z88.5 Allergy status to narcotic agent; Z91.14 Patient's other noncompliance with medication regimen; Z91.15 Patient's noncompliance with renal dialysis
CPT/HCPCS: 36901; 36902; 71045; 75902; 80048 ×2; 80053; 80306; 82553; 84484; 85025 ×2; 87340; 93005; 94760; 96374; 96375 ×2; 96376 ×2; 99285; C1725; C1757; C1769; G0378; J2997; 36415; 90935; G0257; J0360; J1644; J2270; J2405; J3010; S0028

== ENCOUNTER 2017-10-17 04:03 | Inpatient (IN) | payer MEDICARE, MEDICAID ==
[2017-10-17 05:03] LABS: #Basophils 0.1 thou/uL (0.0-0.2); #Eosinphils 0.1 thou/uL (0.0-0.7); #Lymphocytes 3.7 thou/uL (1.20-3.40); #Monocytes 0.7 thou/uL (0.11-0.59); #Neutrophils 4.2 thou/uL (1.40-6.50); %Eosinophils 1.3 % (0.0-10.0); %Lymphocytes 41.7 % (21.0-51.0); Hemoglobin 10.5 g/dL (12.0-16.0); Mean Corpuscular HGB CONC 32.8 g/dL (32.0-36.0); Mean Corpuscular Hemoglobin 27.9 pg (27.0-31.0); Mean Platelet Volume 8.2 fL (7.4-10.4); Platelet Count 302 thou/uL (130-400); RBC Distribution Width 15.3 % (11.5-14.5); Red Blood Cell (RBC) Count 3.76 mill/uL (4.20-5.40); White Blood Cell (WBC) Count 8.8 thou/uL (4.8-10.8)
[2017-10-17 05:30] LABS: ALT (SGPT) 13 U/L (8-55); AST (SGOT) 13 U/L (5-34); Albumin 3.9 g/dL (3.5-5.0); Alkaline Phosphatase 50 U/L (40-150); Anion Gap 20 mmol/L (10-20); BUN (Urea Nitrogen) 76 mg/dL (9.8-20.1); Bilirubin, Total 0.4 mg/dL (0.2-1.2); Calc. Creatinine Clearance 0 mL/min (70-130); Calcium 9.3 mg/dL (7.8-10.44); Carbon Dioxide 17 mmol/L (22-29); Chloride 108 mmol/L (98-107); Estimated GFR-MDRD 3; Globulin 3.7 g/dL (2.4-3.5); Glucose 94 mg/dL (70-105); Potassium 5.4 mmol/L (3.5-5.1); Protein, Total 7.6 g/dL (6.0-8.3); Sodium 140 mmol/L (136-145)
[2017-10-17] MEDS ORDERED: Magnesium Sulfate 2 GM/100 ML BAG ONE (05:50)
[2017-10-17] MEDS ORDERED: Ondansetron ODT 4 MG TAB PO PRN (06:22)
[2017-10-17 06:51] LABS: Amphetamine Not Detected (NotDetected); Barbiturates Screen Not Detected (NotDetected); Benzodiazepine Screen Not Detected (NotDetected); Cocaine Metabolite Screen Detected (NotDetected); Medtox Control Line Valid? VALID (VALID); Medtox Reader # READER 4; Methadone Not Detected (NotDetected); Methamphetamine Not Detected (NotDetected); Opiate Screen Detected (NotDetected); Oxycodone Screen Not Detected (NotDetected); Phencyclidine (PCP) Not Detected (NotDetected); THC/Cannabinoid Screen Not Detected (NotDetected); Tricyclic Screen Not Detected (NotDetected)
[2017-10-17] MEDS ORDERED: hydrALAZINE 20 MG/ML VIAL ONE (07:18)
--- NOTE | 2017-10-17 08:00 | CT ---
BRAIN CT WITHOUT IV CONTRAST: HISTORY: A 52-year-old female with a history of headaches. COMPARISON: 07/29/16. FINDINGS: No focal mass or midline shift. No intraaxial or extraaxial hemorrhage. Sinuses and mastoids are cl ear. IMPRESSION: No acute intracranial process. No mass or bleed. Stable from prior study, 07/29/16. POS: OFF
[2017-10-17] MEDS ORDERED: Enoxaparin Sodium 30 MG/0.3 ML SYRINGE SC SCH (09:00)
[2017-10-17 10:15] VITALS: BMI 27.2
[2017-10-17] MEDS ORDERED: hydrALAZINE 20 MG/ML VIAL SLOW IVP PRN ×2 (10:22→18:45)
[2017-10-17] MEDS: Carvedilol 25 MG TAB PO SCH ×2 (11:21→20:21)
[2017-10-17] MEDS: Acetaminophen 325 MG TAB PO PRN ×2 (11:22→20:21)
--- NOTE | 2017-10-17 15:06 | HP ---
CHIEF COMPLAINT: [facility] for hypert ension, headache, end-stage renal disease. HISTORY OF PRESENT ILLNESS: She had a 1 day history of generalized headache, throbbing, 04/07. Her l ast dialysis was Tuesday. She missed her Tuesday dialysis because she did not feel like going it. At this time, she admits she was doing cocaine that day. She denies a sense, however. She was found to have a markedly elevated blood pressure of 173/119. Received hydralazine in the emergency room a nd was sent to hemodialysis. At hemodialysis, she suffered a transient hypotension with decreased vi ryan, had some subsequent tremors. PAST MEDICAL HISTORY: Pertinent for hypertension; end-stage renal disease, on hemodialysis; anxiety. CURRENT MEDICATIONS: Coreg 25 mg p.o. b.i.d., Catapres 0.1 mg p.o. b.i.d. p.r.n., Procardia 30 mg at bedtime, Xanax 0.5 mg p.o. b.i.d. p.r.n. ALLERGIES: Allergic to MORPHINE and PENICILLINS. PAST SURGICAL HISTORY: Positive for ablation of uterine fibroids, left AV access for dialysis. FAMILY HISTORY: No known coronary artery disease, hemodialysis. SOCIAL HISTORY: Nonsmoker, drinks alcohol occasionally, history of cocaine abuse, urine drug screen has been positive for cocaine on her last two admissions. REVIEW OF SYSTEMS: CONSTITUTIONAL: Throbbing headache for 24 hours. No dizziness or fainting. VISION: She did have the transient decreased vision during her hypotensive episode at hemodialysis b efore it was stopped, it is resolved. No double vision or flashing lights. ENT: No ear pain or drainage, nasal bleeding, or trouble swallowing. CARDIAC: No chest pain, orthopnea or paroxysmal nocturnal dyspnea. RESPIRATORY: No cough, wheezing or asthma. GASTROINTESTINAL: No nausea, vomiting, abdominal pain, diarrhea or constipation. GENITOURINARY: She makes urine. No blood in her urine. EXTREMITIES: Occasional swelling in her legs. No cyanosis or clubbing. PSYCHIATRIC: Anxiety and depression, on Xanax. NEUROLOGIC: No strokes, seizures, focal weakness. SKIN: No bruising, bleeding, or rash. HEME/LYMPH: No tender or swollen lymph nodes in axilla, inguinal, or cervical area. PHYSICAL EXAMINATION: VITAL SIGNS: Current blood pressure 160/90, pulse 110, respirations 16. GENERAL: Alert and oriented, hostile, stating that she has not done cocaine recently despite her pos itive cocaine test today, it was also pertinent she had opiates in her drug screen which she is not o n. HEENT: Reveal pupils equal, round, and reactive. Extraocular movements are intact. Sclerae white. Tympanic membranes clear. Nose clear. Throat is clear. NECK: Supple without jugular venous distention, adenopathy or thyromegaly. CHEST: Clear to auscultation and percussion. HEART: Hyperdynamic, S1, S2 with left ventricular lift 2/6 systolic murmur, no gallops. ABDOMEN: Soft, bowel sounds are normal. There is no hepatosplenomegaly, no mass, no rebound, no bru its. EXTREMITIES: Reveal no cyanosis, clubbing or edema. PULSES: Carotid, radial, femoral, and dorsalis pedis pulses intact. SKIN: Warm and dry without bruises or rash. HEME/LYMPH: No tender or swollen lymph nodes in axilla, inguinal, or cervical area. NEUROLOGICAL: Cranial nerves II-XII are intact. Deep tendon reflexes are symmetric. LABORATORY: Urine drug screen positive for opiates and cocaine. Chemistries: Potassium 5.4, chlori de 108, sodium 140, CO2 17, creatinine 16.01, BUN 76. Hemoglobin 10.5, white count 8.8. No chest x- ray was presented, but a brain CT was done, reviewed by me, no acute intracranial process, stable fro m previous. EKG: Regular sinus rhythm, no ST-T abnormality, reviewed by me. ADMITTING DIAGNOSES: 1. Headache. 2. Hypertensive urgency. 3. Cocaine abuse. 4. End-stage renal disease, on hemodialysis. 5. Probable uremic status based on elevated creatinine of 16, which suggest she has been severely un stephen dialyzed for missing her dialysis appointments. PLAN: 1. Blood pressure control. 2. Consult Nephrology. Monitor closely, reinstitute home medicines.
[2017-10-17] MEDS: cloNIDine 0.1 MG TAB PO PRN (17:13)
[2017-10-17] MEDS: NIFEdipine XL 30 MG TAB PO SCH (20:21)
[2017-10-17] MEDS: ALPRAZolam 0.5 MG TAB PO PRN (20:21)
--- NOTE | 2017-10-18 00:31 | CON ---
DATE OF CONSULTATION: 10/17/2017 NEPHROLOGY CONSULT NOTE CONSULTING PHYSICIAN: . REASON FOR CONSULTATION: End-stage renal disease. REASON FOR ADMISSION: Headache. HISTORY OF PRESENT ILLNESS: This is a 52-year-old -[place] female with history of hypertensi on, end-stage renal disease, who came to the hospital with headache and was found to have hyperkalemi a and she is due for dialysis today. Nephrology was consulted for maintenance hemodialysis. The pat anjali had dialysis this morning and had transient hypotension with decreased vision and some tremors a nd issues. The patient was also found to be positive for cocaine . PAST MEDICAL HISTORY: Positive for hypertension, end-stage renal disease, anxiety, depression and capellan bstance abuse. PAST SURGICAL HISTORY: Dialysis access surgery, ablation of uterine fibroids. HOME MEDICATIONS: Coreg, Catapres, Procardia, Xanax. ALLERGIES: MORPHINE and PENICILLIN. SOCIAL HISTORY: No smoking, alcohol or illicit drug abuse reported, but history of cocaine, and coca ine is positive. FAMILY HISTORY: Mom was on dialysis. REVIEW OF SYSTEMS: The following complete review of systems was negative, unless otherwise mentioned in the HPI or below: Constitutional: Weight loss or gain, ability to conduct usual activities. Skin: Rash, itching. Eyes: Double vision, pain. ENT/Mouth: Nose bleeding, neck stiffness, pain, tenderness. Cardiovascular: Palpitations, dyspnea on exertion, orthopnea. Respiratory: Shortness of breath, wheezing, cough, hemoptysis, fever or night sweats. Gastrointestinal: Poor appetite, abdominal pain, heartburn, nausea, vomiting, constipation, or diarr hea. Genitourinary: Urgency, frequency, dysuria, nocturia. Musculoskeletal: Pain, swelling. Neurologic/Psychiatric: Anxiety, depression. Allergy/Immunologic: Skin rash, bleeding tendency. PHYSICAL EXAMINATION: GENERAL: This is a well-built female in no apparent distress. VITAL SIGNS: Temperature 95, respirations 20, blood pressure 178/96. LABORATORY DATA: Potassium 5.4, BUN is 76, creatinine 16.0. ASSESSMENT AND PLAN: 1. End-stage renal disease. The patient could not tolerate dialysis today and had dialysis only les s than half an hour. Plan for dialysis tomorrow if needed, we will check labs in the morning. 2. Hyperkalemia. Limit potassium. 3. Acidosis. 4. Edema. 5. Hypertension. 6. Substance abuse. 7. Anemia. 8. We will have dialysis if tolerated. Thank you for the consult.
[2017-10-18 06:19] LABS: Anion Gap 22 mmol/L (10-20); BUN (Urea Nitrogen) 66 mg/dL (9.8-20.1); Calc. Creatinine Clearance 5 mL/min (70-130); Calcium 9.8 mg/dL (7.8-10.44); Carbon Dioxide 17 mmol/L (22-29); Chloride 107 mmol/L (98-107); Estimated GFR-MDRD 4; Glucose 139 mg/dL (70-105); Sodium 139 mmol/L (136-145)
[2017-10-18 06:28] LABS: Potassium 6.6 mmol/L (3.5-5.1)
--- NOTE | 2017-10-18 09:27 | PDOC.PN ---
- Subjective Encounter Start Date: 10/18/17 Encounter Start Time: 09:25 Subjective: alert, no complaints, - Objective Resuscitation Status: Resuscitation Status FULL:Full Resuscitation MAR Reviewed: Yes Vital Signs & Weight: Vital Signs (12 hours) Temp Pulse Resp BP Pulse Ox 10/18/17 03:51 97.5 F L 100 18 101/59 L 98 10/18/17 00:00 99.2 F 88 19 122/82 96 Weight Weight 154 lb I&O: 10/17/17 10/18/17 10/19/17 06:59 06:59 06:59 Intake Total 1560 Output Total 500 Balance 1060 Result Diagrams: 10/17/17 04:55 10/18/17 04:57 Additional Labs: Accuchecks 10/17/17 09:26 POC Glucose 110 Phys Exam - Physical Examination Constitutional: NAD Neck: no JVD Respiratory: clear to auscultation bilateral Cardiovascular: RRR, no significant murmur Gastrointestinal: soft, positive bowel sounds Musculoskeletal: no edema Dx/Plan (1) Acidosis, metabolic Code(s): E87.2 - ACIDOSIS Status: Acute (2) Cocaine abuse Code(s): F14.10 - COCAINE ABUSE, UNCOMPLICATED Status: Acute (3) Hyperkalemia Code(s): E87.5 - HYPERKALEMIA Status: Acute (4) Hypertensive urgency Code(s): I16.0 - HYPERTENSIVE URGENCY Status: Acute (5) ESRD (end stage renal disease) on dialysis Code(s): N18.6 - END STAGE RENAL DISEASE; Z99.2 - DEPENDENCE ON RENAL DIALYSIS Status: Chronic - Plan kayexcelate for hyperkalemia -: HD today -: cont antihypertensives * .
--- NOTE | 2017-10-18 12:46 | PRG ---
DATE OF SERVICE: 10/18/2017 SUBJECTIVE: Patient was seen and examined at bedside and overnight events noted. Patient denies any shortness of breath or chest pain or palpitation. No history of nausea or vomitin g or diarrhea or fever or chills or cramps. OBJECTIVE: GENERAL: This is a well-built female, in no apparent distress. VITAL SIGNS: Temperature 97.5, pulse 100, respiratory rate 18, blood pressure 101/58. HEENT: Atraumatic, normocephalic. Oral mucosa is moist NECK: Supple. CARDIOVASCULAR: S1 and S2 heard. Rate and rhythm regular. RESPIRATORY: Clear to auscultation. GASTROINTESTINAL: Abdomen is soft. MUSCULOSKELETAL: No tenderness. No edema. DERMATOLOGIC: No skin rash. NEUROLOGIC: Alert and awake and oriented X3, No focal neurologic deficits. Moving all the extremitie s. PSYCHIATRIC: Mood and affect normal. LABORATORY DATA: Potassium 6.6, BUN 66, creatinine 13.3. ASSESSMENT AND PLAN: 1. End-stage renal disease. Plan is to have dialysis today with patient's potassium was high, but u nfortunately his access was clotted and IR consulted for declotting if possible and keep n.p.o., agre e with Kayexalate dose and severe hyperkalemia, Kayexalate dose and dialysis today once access is dec lotted. 2. Dysfunctional access, declotting to be done by the IR today, hopefully successfully. 3. Acidosis. 4. Edema. 5. Hypertension. 6. Substance abuse. The patient was again counseled and also was advised the issues cocaine is usin g to the access, and she understands and she is willing to quit. We will continue counseling and gav e support. Plan is to have dialysis as soon as access is functional. We will follow.
[2017-10-18] MEDS ORDERED: Sterile Water 10 ML VIAL FS SCH (13:40)
[2017-10-18] MEDS ORDERED: Activase 2 MG VIAL CATH SCH (13:40)
[2017-10-18] MEDS: Carvedilol 25 MG TAB PO SCH ×2 (14:00→20:25)
--- NOTE | 2017-10-18 16:28 | SPC ---
PROCEDURE: 1. Left upper extremity fistulogram with venogram. 2. Thrombolysis of thrombosed fistula. 3. Percutaneous transluminal angioplasty of the fistula using 6 mm x 4 cm balloon angioplasty cathet er. 4. Thrombectomy of the thrombosed fistula using a 5 Cypriot Lyndon balloon catheter through the salas th. 5. Post-treatment fistulogram. FINDINGS: 1. Fistulogram performed through a 4 Cypriot micro sheath with puncture at the elbow into a [place] fi stula with brachial artery anastomosis. The puncture is made just above the arterial anastomosis. Thi s fistulogram demonstrated thrombosis in the venous outflow tract of the fistula to the mid humerus. The venogram otherwise showed a patent axillary vein, subclavian vein, and brachiocephalic vein. 2. The clot was then laced with 4 mg of TPA and 10 mL of saline through a 5 Cypriot straight catheter . The TPA was injected slowly as the catheter was pulled back retrograde through the clot under fluor o. 3. The thrombosed outflow tract was then treated with RESEARCH EXECUTIVE using a 6 mm x 4 cm balloon angio catheter . RESEARCH EXECUTIVE was performed throughout the course of the thrombosis. 4. Thrombectomy was then performed using a 5 Cypriot Lyndon catheter which was advanced over a .035 wire. Lyndon catheter was directed retrograde and pulled the clot into the sheath at the elbow. 5. The arterial anastomosis was then assessed with retrograde opacification which showed a patent ar terial anastomosis. 6. Post-treatment angio showed clearing of the thrombosis in the venous outflow with no residual janis nosis or thrombus identified. Adequate flow was reestablished. MEDICATIONS: 1. Patient was given 1,000 mg of heparin at the beginning of the procedure. 2. 10 mg of TPA and 10 mL saline was used to lace the thrombus. PROCEDURE NOTE: Left upper extremity was prepped and draped in the sterile manner. A left [place] fistula is thrombose d with no flow palpable. Ultrasound was used to assess puncture. This was punctured at the elbow just above the arterial anastomosis with micropuncture technique under ultrasound guidance. Wire was adva nced into the fistula. 4 Cypriot sheath was placed and a fistulogram and vena cavogram was obtained by injecting through this sheath. The venous outflow was noted to be thrombosed to the mid humerus. A .035 wire was introduced and a 5 Cypriot catheter was positioned to the mid humerus at the leading edge of the thrombus. The patient w as given 1,000 mg of heparin IV. The thrombus was then laced with 10 mg of TPA mixed with 10 mL of sa line as the catheter was pulled retrograde through the thrombus. The thrombosed venous outflow was then treated with TPA using a 6 mm x 4 cm balloon angio catheter ov er a .035 wire. A 5 Cypriot Lyndon catheter was then advanced over the wire and thrombectomy was performed by pulling the Lyndon balloon retrograde, clearing the residual thrombus into the sheath. The arterial anastomosis was then assessed with retrograde angiogram. Postprocedure angiogram showed adequate reestablished flow through the fistula with no residual throm bus or stenosis. The patient was sent to dialysis. There were no problems or complications. POS: MONTY
[2017-10-18] MEDS: Acetaminophen 325 MG TAB PO PRN (20:23)
[2017-10-18] MEDS: ALPRAZolam 0.5 MG TAB PO PRN (20:23)
[2017-10-18] MEDS: NIFEdipine XL 30 MG TAB PO SCH (20:27)
[2017-10-18] MEDS ORDERED: HYDROcodone/Acetaminophen 5/325 mg Tablet PO SCH (23:15)
[2017-10-19 05:25] LABS: Anion Gap 13 mmol/L (10-20); BUN (Urea Nitrogen) 32 mg/dL (9.8-20.1); Calc. Creatinine Clearance 8 mL/min (70-130); Calcium 8.7 mg/dL (7.8-10.44); Carbon Dioxide 29 mmol/L (22-29); Chloride 99 mmol/L (98-107); Estimated GFR-MDRD 6; Glucose 86 mg/dL (70-105); Potassium 3.9 mmol/L (3.5-5.1); Sodium 137 mmol/L (136-145)
[2017-10-19] MEDS: cloNIDine 0.1 MG TAB PO PRN (05:31)
--- NOTE | 2017-10-19 08:26 | PDOC.PN ---
- Subjective Encounter Start Date: 10/19/17 Encounter Start Time: 08:24 Subjective: frustrated , declotting fistula yesterday unsuccessful, scheduled again -: today - Objective Resuscitation Status: Resuscitation Status FULL:Full Resuscitation MAR Reviewed: Yes Vital Signs & Weight: Vital Signs (12 hours) Temp Pulse Resp BP BP Pulse Ox 10/19/17 05:31 183/97 H 10/19/17 04:00 98.8 F 97 16 183/97 H 95 10/18/17 20:27 114 H 118/74 Weight Weight 151 lb 8 oz I&O: 10/18/17 10/19/17 10/20/17 06:59 06:59 06:59 Intake Total 1560 1125 Output Total 500 925 Balance 1060 200 Result Diagrams: 10/17/17 04:55 10/19/17 04:24 Phys Exam - Physical Examination Neck: no JVD Respiratory: clear to auscultation bilateral Cardiovascular: RRR, no significant murmur Gastrointestinal: soft, positive bowel sounds Musculoskeletal: edema present Dx/Plan (1) Acidosis, metabolic Code(s): E87.2 - ACIDOSIS Status: Acute (2) Cocaine abuse Code(s): F14.10 - COCAINE ABUSE, UNCOMPLICATED Status: Acute (3) Hyperkalemia Code(s): E87.5 - HYPERKALEMIA Status: Acute (4) Hypertensive urgency Code(s): I16.0 - HYPERTENSIVE URGENCY Status: Acute (5) ESRD (end stage renal disease) on dialysis Code(s): N18.6 - END STAGE RENAL DISEASE; Z99.2 - DEPENDENCE ON RENAL DIALYSIS Status: Chronic - Plan declot fistula. HD in interim with Groin HD cath -: cont antihypertensives * .
[2017-10-19] MEDS: Carvedilol 25 MG TAB PO SCH (09:00)
--- NOTE | 2017-10-19 10:53 | DIS ---
DATE OF ADMISSION: 10/17/2017 DATE OF DISCHARGE: 10/19/2017 DISCHARGE DISPOSITION: Discharged home. PRIMARY CARE PROVIDER: Dr. Galilea Eduardo, Didactic Program In Dietetics Director, Dr. Gasca. FINAL DIAGNOSES: Hypertensive urgency, end-stage renal disease requiring hemodialysis, acidosis, hyp erkalemia, cocaine abuse, dialysis fistula malfunction. DISCHARGE MEDICATIONS: Clonidine 0.1 mg p.o. b.i.d. p.r.n., nifedipine 30 mg a day, Coreg 25 mg twic e a day, Xanax 0.5 mg p.o. b.i.d. p.r.n. ALLERGIES: Allergic to PENICILLIN and MORPHINE. CODE STATUS: FULL. PENDING AT THE TIME OF DISCHARGE: Declotting of AV fistula. HOSPITAL COURSE: The patient admitted through [facility] to [facility]. The patient had presented in the emergency room with headache, was found to have hypertensiv e urgency with a blood pressure of 173/119, tachycardia. Her laboratory revealed a white count of 8. 8, hemoglobin 10.5, platelet count 302,000. Her initial creatinine was 16.01, BUN 76, potassium 5.4. Urine drug screen was positive for cocaine and opiates for which she has no prescription for. Her blood pressure was dropped when she was taken acutely the hemodialysis, she was moved to telemetry. The patient was hostile and aggressive at that time and thought to be uremic. Her home medicines wer e reinstituted she had not been taking. Her blood pressure came down to a reasonable level. Her fol low up laboratory revealed a creatinine of 13.34 with a potassium of 6.6. She was given Kayexalate. Hemodialysis was attempted. Her fistula was clotted. A groin catheter was placed for hemodialysis. She was successfully dialyzed. Follow up potassium today is 3.9. Her creatinine is down to 8.5, B UN is 32. Unfortunately, an attempt on declotting her fistula was not successful. Dr. Gasca has zbigniew jacome for her to be discharged with follow up at hemodialysis today to follow up with declotting procedure as an outpatient as she has vascular access. She is to follow up with Dr. Galilea Eduardo i n 7 days. She will follow up with Dr. Gasca at hemodialysis. She has Tuesday, Tuesday, Tuesday he modialysis. She will have a declotting procedure done as an outpatient. CONSULTATIONS: Dr. Opal Gasca, Nephrology. PROCEDURES: AV shunt angiogram per Radiology with thrombolysis and thrombectomy. At the time of discharge, the patient's vital signs were stable. Cardiorespiratory exam is stable an d it is pertinent she was unwilling to stay in the hospital any longer. She insisted on being discha rged.
[2017-10-19 14:13] VITALS: BP 181/77; TEMP 98.6
--- NOTE | 2017-10-19 15:26 | PDOC.OP ---
Operative Note - Operative Note Operative Note: PROCEDURE: Femoral hemodialysis catheter placement with ultrasound guidance DATE OF PROCEDURE: 10/18/2017 SURGEON: Dot Jackman M.D. PREOPERATIVE DIAGNOSES: Renal failure, hyperkalemia POSTOPERATIVE DIAGNOSIS: Renal failure, hyperkalemia HISTORY: Patient with renal failure with a left upper arm AV graft which is thrombosed. She underwent an attempted declotting but the dialysis nurses were unable to use it successfully for dialysis. She has severe hyperkalemia with potassium of 6.6 and a femoral catheter has been requested for immediate dialysis. PROCEDURE IN DETAIL: After informed consent was obtained and an ultrasound used to confirm presence of a patent compressible left femoral vein, the groin was prepped and draped in standard sterile fashion. Local anesthesia was infused over the femoral vein which was accessed under direct ultrasound guidance with excellent flow of dark venous nonpulsatile blood. Ultrasound was used to confirm the presence of the wire within the patent compressible femoral vein. A skin incision was made and the tract was serially dilated over the wire. The dialysis catheter was placed over the wire and secured to the skin with sutures. Two ports easily aspirated and easily flushed without resistance and the third one flushed easily although it would not aspirate well. The nurses were instructed to use this port for infusion and the other port for drawing blood. A antimicrobial hydrogel dressing was placed. The patient tolerated the procedure well. Estimated blood loss was minimal. There were no complications. There were no specimens.
--- NOTE | 2017-10-19 19:10 | PRG ---
DATE OF SERVICE: 10/19/2017 DATE OF SERVICE: 08/31/2017 SUBJECTIVE: Patient was seen and examined at bedside and overnight events noted. Patient denies any shortness of breath or chest pain or palpitation. No history of nausea or vomitin g or diarrhea or fever or chills or cramps. OBJECTIVE: GENERAL: This is a well-built female, in no apparent distress. VITAL SIGNS: Temperature 98.6, pulse 71, respiratory rate 18, blood pressure 181/77. HEENT: Atraumatic, normocephalic. Oral mucosa is moist NECK: Supple. CARDIOVASCULAR: S1 and S2 heard. Rate and rhythm regular. RESPIRATORY: Clear to auscultation. GASTROINTESTINAL: Abdomen is soft. MUSCULOSKELETAL: No tenderness. No edema. DERMATOLOGIC: No skin rash. NEUROLOGIC: Alert and awake and oriented X3, No focal neurologic deficits. Moving all the extremitie s. PSYCHIATRIC: Mood and affect normal. LABORATORY DATA: Potassium is 3.9, BUN 32, creatinine is 8.1. ASSESSMENT AND PLAN: 1. End-stage renal disease. Continue on hemodialysis as tolerated. 2. Acidosis. 3. Edema. 4. Hypertension. 5. Substance abuse, counseled. Plan is to continue on dialysis as tolerated and follow with access centre for access evaluation.
[2017-10-20] MEDS ORDERED: Heparin 1,000 UNITS/ML VIAL ONE (18:20)
--- NOTE | 2017-10-24 14:19 | SPC ---
PROCEDURE: 1. Left upper extremity fistulogram with venogram. 2. Thrombolysis of thrombosed fistula. 3. Percutaneous transluminal angioplasty of the fistula using 6 mm x 4 cm balloon angioplasty cathet er. 4. Thrombectomy of the thrombosed fistula using a 5 Nigerien Lyndon balloon catheter through the salas th. 5. Post-treatment fistulogram. FINDINGS: 1. Fistulogram performed through a 4 Nigerien micro sheath with puncture at the elbow into a ute fi stula with brachial artery anastomosis. The puncture is made just above the arterial anastomosis. Thi s fistulogram demonstrated thrombosis in the venous outflow tract of the fistula to the mid humerus. The venogram otherwise showed a patent axillary vein, subclavian vein, and brachiocephalic vein. 2. The clot was then laced with 4 mg of TPA and 10 mL of saline through a 5 Nigerien straight catheter . The TPA was injected slowly as the catheter was pulled back retrograde through the clot under fluor o. 3. The thrombosed outflow tract was then treated with CHIP MACHINE OPERATOR using a 6 mm x 4 cm balloon angio catheter . CHIP MACHINE OPERATOR was performed throughout the course of the thrombosis. 4. Thrombectomy was then performed using a 5 Nigerien Lyndon catheter which was advanced over a .035 wire. Lyndon catheter was directed retrograde and pulled the clot into the sheath at the elbow. 5. The arterial anastomosis was then assessed with retrograde opacification which showed a patent ar terial anastomosis. 6. Post-treatment angio showed clearing of the thrombosis in the venous outflow with no residual janis nosis or thrombus identified. Adequate flow was reestablished. MEDICATIONS: 1. Patient was given 1,000 mg of heparin at the beginning of the procedure. 2. 10 mg of TPA and 10 mL saline was used to lace the thrombus. PROCEDURE NOTE: Left upper extremity was prepped and draped in the sterile manner. A left ute fistula is thrombose d with no flow palpable. Ultrasound was used to assess puncture. This was punctured at the elbow just above the arterial anastomosis with micropuncture technique under ultrasound guidance. Wire was adva nced into the fistula. 4 Nigerien sheath was placed and a fistulogram and vena cavogram was obtained by injecting through this sheath. The venous outflow was noted to be thrombosed to the mid humerus. A .035 wire was introduced and a 5 Nigerien catheter was positioned to the mid humerus at the leading edge of the thrombus. The patient w as given 1,000 mg of heparin IV. The thrombus was then laced with 10 mg of TPA mixed with 10 mL of sa line as the catheter was pulled retrograde through the thrombus. The thrombosed venous outflow was then treated with TPA using a 6 mm x 4 cm balloon angio catheter ov er a .035 wire. A 5 Nigerien Lyndon catheter was then advanced over the wire and thrombectomy was performed by pulling the Lnydon balloon retrograde, clearing the residual thrombus into the sheath. The arterial anastomosis was then assessed with retrograde angiogram. Postprocedure angiogram showed adequate reestablished flow through the fistula with no residual throm bus or stenosis. The patient was sent to dialysis. There were no problems or complications.
== END 2017-10-19 10:50 | disposition home or self-care (01) | DRG 252 ==
LOC: ERS 04:03 → 2NO 06:11
PROVIDERS: ADMIT Hospitalist; ATTEND Hospitalist
PROC: 5A1D70Z Performance of Urinary Filtration, Intermittent, Less than 6 Hours Per Day (ICD-10-PCS; principal; 2017-10-18)
PROC: 5A1D70Z Performance of Urinary Filtration, Intermittent, Less than 6 Hours Per Day (ICD-10-PCS; 2017-10-18)
PROC: 03C83ZZ Extirpation of Matter from Left Brachial Artery, Percutaneous Approach (ICD-10-PCS; 2017-10-18)
PROC: B51W1ZZ Fluoroscopy of Dialysis Shunt/Fistula using Low Osmolar Contrast (ICD-10-PCS; 2017-10-18)
PROC: 3E06317 Introduction of Other Thrombolytic into Central Artery, Percutaneous Approach (ICD-10-PCS; 2017-10-18)
DX: T82.868A Thrombosis due to vascular prosthetic devices, implants and grafts, initial encounter (principal); N18.6 End stage renal disease; I12.0 Hypertensive chronic kidney disease with stage 5 chronic kidney disease or end stage renal disease; E87.5 Hyperkalemia; Z99.2 Dependence on renal dialysis; F41.9 Anxiety disorder, unspecified; F14.10 Cocaine abuse, uncomplicated; Z88.5 Allergy status to narcotic agent; Z88.0 Allergy status to penicillin; I16.0 Hypertensive urgency; Z91.15 Patient's noncompliance with renal dialysis; F20.9 Schizophrenia, unspecified
CPT/HCPCS: 36415; 36416; 36901; 36902; 70450; 75902; 76942; 80048; 80053; 80306; 85025; 90935; 93005; 96365; 96375; A4216; C1725; C1757; C1769; C1887; G0257; J0360; J1650; J2997; J3475

== ENCOUNTER 2017-12-02 09:56 | Emergency (ER) | payer MEDICARE, MEDICAID ==
[2017-12-02 11:02] LABS: #Basophils 0.1 thou/uL (0.0-0.2); #Eosinphils 0.1 thou/uL (0.0-0.7); #Lymphocytes 2.2 thou/uL (1.20-3.40); #Monocytes 0.3 thou/uL (0.11-0.59); #Neutrophils 2.7 thou/uL (1.40-6.50); %Basophils 1.8 % (0.0-1.0); %Eosinophils 1.2 % (0.0-10.0); %Lymphocytes 40.8 % (21.0-51.0); %Monocytes 4.7 % (0.0-10.0); %Neutrophils 51.5 % (42.0-75.0); Mean Corpuscular HGB CONC 32.3 g/dL (32.0-36.0); Mean Corpuscular Hemoglobin 28.5 pg (27.0-31.0); Mean Corpuscular Volume 88.3 fl (81.0-99.0); Mean Platelet Volume 7.6 fL (7.4-10.4); Platelet Count 255 thou/uL (130-400); RBC Distribution Width 16.2 % (11.5-14.5); Red Blood Cell (RBC) Count 3.16 mill/uL (4.20-5.40); White Blood Cell (WBC) Count 5.3 thou/uL (4.8-10.8)
[2017-12-02 11:11] LABS: ALT (SGPT) 10 U/L (8-55); AST (SGOT) 13 U/L (5-34); Albumin 3.9 g/dL (3.5-5.0); Alkaline Phosphatase 47 U/L (40-150); Anion Gap 14 mmol/L (10-20); BUN (Urea Nitrogen) 22 mg/dL (9.8-20.1); Bilirubin, Total 0.5 mg/dL (0.2-1.2); Calc. Creatinine Clearance 0 mL/min (70-130); Calcium 9.2 mg/dL (7.8-10.44); Carbon Dioxide 28 mmol/L (22-29); Chloride 98 mmol/L (98-107); Estimated GFR-MDRD 8; Globulin 3.3 g/dL (2.4-3.5); Glucose 98 mg/dL (70-105); Potassium 3.5 mmol/L (3.5-5.1); Protein, Total 7.2 g/dL (6.0-8.3); Sodium 136 mmol/L (136-145)
== END 2017-12-02 13:36 | disposition home or self-care (01) ==
LOC: ERS 09:56
DX: I95.3 Hypotension of hemodialysis (principal); I12.0 Hypertensive chronic kidney disease with stage 5 chronic kidney disease or end stage renal disease; N18.6 End stage renal disease; F31.9 Bipolar disorder, unspecified; F41.9 Anxiety disorder, unspecified; Z79.82 Long term (current) use of aspirin; Z79.899 Other long term (current) drug therapy
CPT/HCPCS: 36415; 80053; 85025; 99285

== ENCOUNTER 2018-04-10 03:43 | Emergency (ER) | payer MEDICARE, MEDICAID ==
[2018-04-10] MEDS ORDERED: Fleet Enema 133 ML BOT FS SCH (05:00)
[2018-04-10] MEDS ORDERED: Ondansetron HCl/PF 4 MG/2 ML Vial ONE (05:38)
== END 2018-04-10 06:20 | disposition home or self-care (01) ==
LOC: ERS 03:43
DX: R11.2 Nausea with vomiting, unspecified (principal); R10.9 Unspecified abdominal pain; I12.9 Hypertensive chronic kidney disease with stage 1 through stage 4 chronic kidney disease, or unspecified chronic kidney disease; N18.9 Chronic kidney disease, unspecified; F20.9 Schizophrenia, unspecified; F31.9 Bipolar disorder, unspecified; F41.9 Anxiety disorder, unspecified
CPT/HCPCS: 96374; J2405

== ENCOUNTER 2018-04-19 12:35 | Observation (INO) | payer MEDICARE, MEDICAID ==
[2018-04-19 13:41] LABS: #Basophils 0.1 thou/uL (0.0-0.2); #Eosinphils 0.1 thou/uL (0.0-0.7); #Lymphocytes 2.2 thou/uL (1.20-3.40); #Monocytes 0.3 thou/uL (0.11-0.59); #Neutrophils 6.6 thou/uL (1.40-6.50); %Basophils 1.2 % (0.0-1.0); %Eosinophils 0.6 % (0.0-10.0); %Lymphocytes 23.4 % (21.0-51.0); %Monocytes 3.3 % (0.0-10.0); %Neutrophils 71.5 % (42.0-75.0); Hemoglobin 12.8 g/dL (12.0-16.0); Mean Corpuscular HGB CONC 32.5 g/dL (32.0-36.0); Mean Corpuscular Hemoglobin 28.4 pg (27.0-31.0); Mean Corpuscular Volume 87.5 fL (78.0-98.0); Mean Platelet Volume 8.5 fL (7.4-10.4); Platelet Count 227 thou/uL (130-400); RBC Distribution Width 18.5 % (11.5-14.5); Red Blood Cell (RBC) Count 4.51 mill/uL (4.20-5.40); White Blood Cell (WBC) Count 9.3 thou/uL (4.8-10.8)
[2018-04-19 14:09] LABS: Troponin I Less than 0.010 ng/mL (< 0.028)
[2018-04-19] MEDS ORDERED: Nitroglycerin 0.4 MG TAB (25 Tab Bottle) ONE (14:09)
--- NOTE | 2018-04-19 14:10 | RAD ---
PORTABLE CHEST 1 VIEW: Date: 04/19/18 Time: 1302 hours HISTORY: Chest pain. Patient missed dialysis today. FINDINGS/IMPRESSION: Comparison made with exam of 10/09/17. The heart size is enlarged. The lungs are well expanded with mild pulmonary vascular congestion. A va scular stent is seen in the left arm. POS: [facility]
--- NOTE | 2018-04-19 14:12 | RAD ---
ABDOMEN 1 VIEW: Date: 04/19/18 HISTORY: Abdominal pain. Patient missed dialysis today. FINDINGS/IMPRESSION: The bowel gas pattern is unremarkable. Pelvic phleboliths are present. No acute osseous abnormalities are seen. POS: [facility]
[2018-04-19] MEDS ORDERED: Fentanyl 100 MCG/2 ML VIAL ONE (14:19)
[2018-04-19] MEDS ORDERED: Ondansetron HCl/PF 4 MG/2 ML Vial ONE ×2 (14:19→15:39)
[2018-04-19 15:17] LABS: Calcium 9.2 mg/dL (7.8-10.44); Chloride 110 mmol/L (98-107); Sodium 139 mmol/L (136-145)
[2018-04-19 15:18] LABS: Globulin 3.7 g/dL (2.4-3.5); Glucose 92 mg/dL (70-105); Protein, Total 7.7 g/dL (6.0-8.3)
[2018-04-19 15:19] LABS: Anion Gap 17 mmol/L (10-20); Carbon Dioxide 20 mmol/L (22-29)
[2018-04-19 15:20] LABS: Bilirubin, Total 0.7 mg/dL (0.2-1.2)
[2018-04-19 15:21] LABS: Alkaline Phosphatase 72 U/L (40-150); Calc. Creatinine Clearance 0 mL/min (70-130); Estimated GFR-MDRD 4
[2018-04-19 15:22] LABS: BUN (Urea Nitrogen) 47 mg/dL (9.8-20.1)
[2018-04-19 15:23] LABS: AST (SGOT) 15 U/L (5-34)
[2018-04-19 15:24] LABS: ALT (SGPT) 14 U/L (8-55)
[2018-04-19 15:25] LABS: Potassium 8.2 mmol/L (3.5-5.1)
[2018-04-19] MEDS ORDERED: Dextrose 50% Abboject 50 ML SYRINGE ONE (15:34)
[2018-04-19] MEDS ORDERED: Calcium Gluc 4.6 MEQ/10 ML (100 MG/ML) ONE (15:34)
[2018-04-19] MEDS ORDERED: Insulin Regular 300 UNITS/3 ML VIAL ONE (15:34)
[2018-04-19] MEDS ORDERED: Sodium Bicarb 50 MEQ/50 ML Abboject 8.4% SYRINGE ONE (15:34)
[2018-04-19] MEDS ORDERED: Albuterol Sulfate 2.5 mg/3 ml Neb ONE ×2 (15:36)
--- NOTE | 2018-04-19 16:55 | PDOC.EVN ---
Attending Addendum - Attending Addendum Date/Time: 04/19/18 3578 I personally evaluated the patient and discussed the management with Dr. Barry Josue. I agree with the History, Examination, Assessment and Plan documented in her H& P with any addition or exceptions noted below. Patient with history of HTN, HLD, ESRD on HD MWF, drug abuse and medication noncompliance presenting with chest pain and elevated blood pressures that began today. She reports that she has not been feeling well and having nausea/ diarrhea for the last few days and missed her HD appointment this morning. After that time, she began having some mild chest pain that has been persistent. Upon arrival to ER, patient found to be extremely hypertensive and with elevated K and Cr levels. She currently reports no complaints. Patient to be admitted to observation status for HTN urgency and volume overload in the setting of noncompliance with hemodialysis regimen. She will undergo urgent HD due to her elevated K level. Currently receiving albuterol and bicarbonate. Nephrology on board. Will work to obtain better BP control if still elevated after HD. Trend troponins. Will check UDS. Continue treatment for chronic conditions as necessary.
[2018-04-19] MEDS ORDERED: Nitroglycerin 0.4 MG TAB (25 Tab Bottle) PO PRN (17:00)
[2018-04-19] MEDS ORDERED: hydrALAZINE 20 MG/ML VIAL SLOW IVP PRN (17:15)
--- NOTE | 2018-04-19 17:17 | PDOC.FPRHP ---
- History of Present Illness Chief Complaint: chest pain History of Present Illness: 52 yo f with ESRD 2/2 HTN presents with chest pain described as substernal and pressure. She has associated nausea and vomiting. While talking with her, she became acutely nauseous and vomited several times. She was diaphoretic. She missed her dialysis this week because she didn't feel well. She denied radiation of chest pain and denied shortness of breath. Her vomitus was clear/ light green, nonbloody. While evaluating pt in the ED, her potassium came back > [address] Aldrich was called and orders were placed for emergent dialysis. - Allergies/Adverse Reactions Allergies Allergy/AdvReac Type Severity Reaction Status Date / Time Penicillins Allergy Verified 04/19/18 18:36 morphine AdvReac Verified 04/19/18 18:36 - Home Medications Medication Instructions Recorded Confirmed Type Carvedilol 25 mg PO BID 10/25/16 04/19/18 History ALPRAZolam [Xanax] 2 mg PO BIDPRN PRN 07/21/17 04/19/18 History NIFEdipine [Procardia XL] 30 mg PO HS #30 tab 10/11/17 04/19/18 Rx Doxepin HCl 50 mg PO HS 04/19/18 04/19/18 History Linaclotide [Linzess] 290 mcg PO DAILY-AC 04/19/18 04/19/18 History OXcarbazepine [Trileptal] 150 mg PO DAILY 04/19/18 04/19/18 History cloNIDine [Catapres] 0.3 mg PO BID 04/19/18 04/19/18 History Docusate [Colace] 100 mg PO BID PRN 04/20/18 04/20/18 History Esomeprazole Magnesium 20 mg PO QAM 04/20/18 04/20/18 History Promethazine [Phenergan] 25 mg PO BID PRN 04/20/18 04/20/18 History - History PMHx: HTN, HLD PSHx: Ablation, Knee surgery FHx: Mom-CKD Social: denies smoking, alcohol use or drug use - Review of Systems General: denies: fever/chills, weight/appetite/sleep changes, night sweats ENT: denies: nasal congestion, rhinorrhea Respiratory: denies: cough, congestion, shortness of breath Cardiovascular: reports: chest pain. denies: palpitation, edema Gastrointestinal: reports: nausea, vomiting Genitourinary: denies: incontinence, dysuria Skin: denies: rashes, lesions Musculoskeletal: denies: pain, tenderness, stiffness Neurological: denies: numbness, syncope Psychological: denies: anxiety, depression - Vital signs BP: 196/127 HR: 76 RR: 20 Tmax: 98F Pox: 97% on RA Wt: 74kg - Physical Exam Constitutional: other (diaphoretic, vomiting) HEENT: normocephalic and atraumatic, no scleral icterus, grossly normal hearing , normal nasal mucosa, MMM Heart: RRR, normal S1/S2, no murmurs/rubs/gallops Lungs: CTAB, no respiratory distress, good air movement Abdomen: soft, non-tender, bowel sounds present Musculoskeletal: normal structure Skin: no rash/lesions, good turgor, capillary refill <2 seconds Heme/Lymphatic: no unusual bruising or bleeding, no purpura, no petechia Psychiatric: normal mood and affect FMR H&P: Results - Labs Result Diagrams: 04/20/18 04:03 04/20/18 04:03 Lab results: WBC 9.3 thou/uL (4.8-10.8) 04/19/18 13:27 Hgb 12.8 g/dL (12.0-16.0) 04/19/18 13:27 Hct 39.5 % (36.0-47.0) 04/19/18 13:27 MCV 87.5 fL (78.0-98.0) 04/19/18 13:27 Plt Count 227 thou/uL (130-400) 04/19/18 13:27 Neutrophils % 71.5 % (42.0-75.0) 04/19/18 13:27 Sodium 139 mmol/L (136-145) 04/19/18 14:45 Potassium 8.2 mmol/L (3.5-5.1) H* 04/19/18 14:45 Chloride 110 mmol/L (98-107) H 04/19/18 14:45 Carbon Dioxide 20 mmol/L (22-29) L 04/19/18 14:45 BUN 47 mg/dL (9.8-20.1) H 04/19/18 14:45 Creatinine 11.65 mg/dL (0.6-1.1) H 04/19/18 14:45 Glucose 92 mg/dL (70-105) 04/19/18 14:45 Calcium 9.2 mg/dL (7.8-10.44) 04/19/18 14:45 Total Bilirubin 0.7 mg/dL (0.2-1.2) 04/19/18 14:45 AST 15 U/L (5-34) 04/19/18 14:45 ALT 14 U/L (8-55) 04/19/18 14:45 Alkaline Phosphatase 72 U/L (40-150) 04/19/18 14:45 CK-MB (CK-2) 1.0 ng/mL (0-6.6) 04/19/18 13:27 Serum Total Protein 7.7 g/dL (6.0-8.3) 04/19/18 14:45 Albumin 4.0 g/dL (3.5-5.0) 04/19/18 14:45 FMR H&P: A/P - Problem List (1) Hx of cocaine abuse Current Visit: Yes Status: Acute Code(s): Z87.898 - PERSONAL HISTORY OF OTHER SPECIFIED CONDITIONS (2) Hyperkalemia Current Visit: No Status: Acute Code(s): E87.5 - HYPERKALEMIA (3) Hypertensive urgency Current Visit: No Status: Acute Code(s): I16.0 - HYPERTENSIVE URGENCY (4) ESRD (end stage renal disease) on dialysis Current Visit: No Status: Chronic Code(s): N18.6 - END STAGE RENAL DISEASE; Z99.2 - DEPENDENCE ON RENAL DIALYSIS (5) HTN (hypertension) Current Visit: No Status: Chronic Code(s): I10 - ESSENTIAL (PRIMARY) HYPERTENSION - Plan 52 yo with ESRD 2/2 HTN who missed her dialysis this week (usually MWF) presents with chest pain admitted for hyperkalemia requiring emergent dialysis #Hyperkalemia -Pt K>7, requiring emergent dialysis -Nephro consulted who placed recs -Will recheck BMP after dialysis and in am #Hypertensive Urgency -vitals q4h -hydralazine prn -restart home meds #Typical Chest Pain -Suspect demand ischemia -Resolved while in room -Trops negative, will continue to trend -Will get new EKG if chest pain returns #Nausea and Vomiting- -Will provide zofran prn #ESRD -Contine MWF dialysis per neurology #HLD -will order a lipid profile -will start high intensity statin and aspirin daily #Hx of cocaine abuse -denied current use -will check UDS dispo: tomorrow likely DVT: heparin 5000 TID GI: none Code: FULL FMR H&P: Upper Level - Plan Date/Time: 04/19/18 [id number] I, [], have evaluated this patient and agree with findings/plan as outlined by manager internet resident. Pertinent changes/additions are listed here. Attending Addendum - Attending Addendum Date/Time: 04/20/1818 I personally evaluated the patient and discussed the management with Dr. Barry Josue. I agree with the History, Examination, Assessment and Plan documented above with any addition or exceptions noted below. Please see event note dated 04/19/18 for further attending details.
[2018-04-19 18:14] LABS: Troponin I Less than 0.010 ng/mL (< 0.028)
[2018-04-19] MEDS: cloNIDine 0.3 MG TAB PO SCH (20:10)
[2018-04-19] MEDS ORDERED: Ondansetron HCl/PF 4 MG/2 ML Vial IVP PRN (20:25)
[2018-04-19 20:28] LABS: Troponin I 0.011 ng/mL (< 0.028)
[2018-04-19] MEDS ORDERED: NIFEdipine XL 30 MG TAB PO SCH (21:00)
--- NOTE | 2018-04-19 21:05 | PDOC.EVN ---
Event Note - Event Note Event Note: Nurse called from dialysis, pt complaining of chest/back pain, headache, nausea. BPs 200s/100s. Clonidine home meds restarted. EKG and Trop/ckmb ordered. Zofran for nausea, GI cocktail. EKG NSR, no changes from admit EKG.
[2018-04-19 21:19] LABS: CKMB 1.1 ng/mL (0-6.6); Troponin I Less than 0.010 ng/mL (< 0.028)
[2018-04-19] MEDS: Carvedilol 25 MG TAB PO SCH (21:25)
[2018-04-19] MEDS: Heparin 5,000 UNITS/ML VIAL SC SCH (21:26)
[2018-04-19] MEDS ORDERED: Lidocaine 2% Viscous Solution 10 ML, Aluminum & Magnesium Hydroxide 30 ML SSW SCH (21:30)
--- NOTE | 2018-04-19 21:37 | CON ---
DATE OF CONSULTATION: 04/19/2018 CONSULTING PHYSICIAN: Dr. Wendy Hatfield from ER. REASON FOR CONSULT: Hyperkalemia. REASON FOR ADMISSION: Chest pain. HISTORY OF PRESENT ILLNESS: This is a 52-year-old female with history of end-stage renal disease, hy pertension, substance abuse, came to the hospital with chest pain and was found to have hyperkalemia. Patient get dialysis Tuesday, Tuesday, Tuesday, and did not get dialysis today as she said she was nauseated this morning. She was found to have potassium of 8 and Nephrology consulted. There is con cern of sample being hemolyzed. The patient's chest pain is better. She has been treated in the ER. No nausea, no fever or chills. No shortness of breath reported. PAST MEDICAL HISTORY: Positive for end-stage renal disease, on hemodialysis Tuesday, Tuesday, y, hypertension, anxiety, substance abuse, uterine fibroids. PAST SURGICAL HISTORY: Dialysis access placement and uterine fibroid ablation. HOME MEDICATIONS: Include clonidine, Procardia, carvedilol, Xanax. ALLERGIES: PENICILLIN and MORPHINE. SOCIAL HISTORY: No smoking, alcohol or illicit drug abuse, history of cocaine abuse in the past. FAMILY HISTORY: Positive for kidney disease. REVIEW OF SYSTEMS: The following complete review of systems was negative, unless otherwise mentioned in the HPI or below: Constitutional: Weight loss or gain, ability to conduct usual activities. Skin: Rash, itching. Eyes: Double vision, pain. ENT/Mouth: Nose bleeding, neck stiffness, pain, tenderness. Cardiovascular: Palpitations, dyspnea on exertion, orthopnea. Respiratory: Shortness of breath, wheezing, cough, hemoptysis, fever or night sweats. Gastrointestinal: Poor appetite, abdominal pain, heartburn, nausea, vomiting, constipation, or diarr hea. Genitourinary: Urgency, frequency, dysuria, nocturia. Musculoskeletal: Pain, swelling. Neurologic/Psychiatric: Anxiety, depression. Allergy/Immunologic: Skin rash, bleeding tendency. PHYSICAL EXAMINATION: GENERAL: This is a well-built female in no apparent distress. VITAL SIGNS: Temperature 96, pulse 70, respiratory rate 18, and blood pressure 148/82. HEENT: Atraumatic, normocephalic. Oral mucosa is moist. NECK: Supple, no masses. HEART: S1 and S2 heard. Rate and rhythm regular. RESPIRATORY: Clear. ABDOMEN: Soft. MUSCULOSKELETAL: No tenderness. No edema. SKIN: No rash. NEUROLOGIC: Alert, awake. PSYCHIATRIC: Mood and affect normal. LABORATORY DATA: Hemoglobin is 12.8, potassium is 8.2, bicarb 20, BUN is 47, creatinine 11.6, albumi n is 4.0. ASSESSMENT AND PLAN: 1. End-stage renal disease with hyperkalemia. Plan is to have emergent dialysis. Dialysis nurse arnaldo rojas will have a repeat potassium, stat potassium right before dialysis. 2. We will use 2K bath. 3. Hyperkalemia. We will use 2K bath and emergent dialysis. Repeat stat potassium. 4. Metabolic acidosis, mild. 5. Edema, controlled. 6. Hypertension, stable. 7. Anemia. Hemoglobin is stable. Plan is to have emergent dialysis with stat potassium right before dialysis. We will use 2K bath for now and continue dialysis. Limit potassium in the diet.
[2018-04-19 21:54] VITALS: BMI 28.2
[2018-04-20 00:08] LABS: Anion Gap 18 mmol/L (10-20); BUN (Urea Nitrogen) 18 mg/dL (9.8-20.1); Calc. Creatinine Clearance 12 mL/min (70-130); Calcium 9.5 mg/dL (7.8-10.44); Carbon Dioxide 28 mmol/L (22-29); Chloride 99 mmol/L (98-107); Estimated GFR-MDRD 8; Glucose 138 mg/dL (70-105); Potassium 4.1 mmol/L (3.5-5.1); Sodium 141 mmol/L (136-145)
[2018-04-20 04:55] LABS: #Basophils 0.1 thou/uL (0.0-0.2); #Eosinphils 0.1 thou/uL (0.0-0.7); #Lymphocytes 2.1 thou/uL (1.20-3.40); #Monocytes 0.6 thou/uL (0.11-0.59); #Neutrophils 5.5 thou/uL (1.40-6.50); %Basophils 0.8 % (0.0-1.0); %Eosinophils 0.7 % (0.0-10.0); %Monocytes 7.5 % (0.0-10.0); %Neutrophils 66.1 % (42.0-75.0); Hemoglobin 11.4 g/dL (12.0-16.0); Mean Corpuscular HGB CONC 33.3 g/dL (32.0-36.0); Mean Corpuscular Hemoglobin 28.8 pg (27.0-31.0); Mean Corpuscular Volume 86.7 fL (78.0-98.0); Mean Platelet Volume 8.3 fL (7.4-10.4); Platelet Count 183 thou/uL (130-400); RBC Distribution Width 17.7 % (11.5-14.5); Red Blood Cell (RBC) Count 3.94 mill/uL (4.20-5.40); White Blood Cell (WBC) Count 8.2 thou/uL (4.8-10.8)
[2018-04-20 05:13] LABS: Anion Gap 18 mmol/L (10-20); BUN (Urea Nitrogen) 22 mg/dL (9.8-20.1); Calc. Creatinine Clearance 11 mL/min (70-130); Calcium 9.2 mg/dL (7.8-10.44); Carbon Dioxide 28 mmol/L (22-29); Cardiac Risk 3.9 (Less than 4.5); Chloride 100 mmol/L (98-107); Cholesterol 194 mg/dl (< 200 Desired); Estimated GFR-MDRD 7; Glucose 90 mg/dL (70-105); HDL Cholesterol 50 mg/dL (>60 Neg Risk); LDL Cholesterol, Calculated 123 mg/dL; Potassium 4.6 mmol/L (3.5-5.1); Sodium 141 mmol/L (136-145); Triglycerides 106 mg/dL (Less than 150)
--- NOTE | 2018-04-20 07:48 | PDOC.FM ---
- Subjective Subjective: Denies chest pain this morning. Denies n/v as well. States she slept well. Restarted home meds and bp controlled. - Objective MAR Reviewed: Yes Vital Signs & Weight: Vital Signs (12 hours) Temp Pulse Resp BP BP Pulse Ox 04/20/18 07:16 98.7 F 78 16 144/78 H 100 04/20/18 03:43 98.2 F 89 18 121/72 95 04/20/18 02:28 98 04/20/18 00:17 98.3 F 80 16 116/63 98 04/19/18 22:05 80 16 155/75 H 98 04/19/18 21:26 89 211/109 H 04/19/18 21:25 97 F L 89 18 211/109 H 04/19/18 20:55 98.3 F 89 22 H 04/19/18 20:31 94 209/105 H 04/19/18 20:15 109 H 172/102 H 04/19/18 20:10 190/108 H 04/19/18 20:05 103 H 190/108 H 100 Weight Weight 72.257 kg I&O: 04/19/18 04/20/18 04/21/18 06:59 06:59 06:59 Intake Total 360 Balance 360 Result Diagrams: 04/20/18 04:03 04/20/18 04:03 <Dasia Sahu - Last Filed: 04/20/18 13:28> - Objective Vital Signs & Weight: Vital Signs (12 hours) Temp Pulse Resp BP BP Pulse Ox 04/20/18 11:40 98.4 F 79 20 105/57 L 100 04/20/18 08:00 98.7 F 78 16 04/20/18 07:16 98.7 F 78 16 144/78 H 100 04/20/18 03:43 98.2 F 89 18 121/72 95 04/20/18 02:28 98 Weight Weight 72.257 kg I&O: 04/19/18 04/20/18 04/21/18 06:59 06:59 06:59 Intake Total 360 Balance 360 Result Diagrams: 04/20/18 04:03 04/20/18 04:03 <Kari Acuña - Last Filed: 04/20/18 13:45> Phys Exam - Physical Examination Constitutional: NAD HEENT: PERRLA, moist MMs Respiratory: no wheezing, no rales, clear to auscultation bilateral Cardiovascular: RRR, no significant murmur Gastrointestinal: soft, non-tender, no distention Musculoskeletal: no edema Neurological: non-focal Psychiatric: normal affect, A&O x 3 Skin: no rash <Dasia Sahu - Last Filed: 04/20/18 13:28> Dx/Plan (1) Hx of cocaine abuse Code(s): Z87.898 - PERSONAL HISTORY OF OTHER SPECIFIED CONDITIONS Status: Acute (2) Hyperkalemia Code(s): E87.5 - HYPERKALEMIA Status: Acute (3) Hypertensive urgency Code(s): I16.0 - HYPERTENSIVE URGENCY Status: Acute (4) ESRD (end stage renal disease) on dialysis Code(s): N18.6 - END STAGE RENAL DISEASE; Z99.2 - DEPENDENCE ON RENAL DIALYSIS Status: Chronic (5) HTN (hypertension) Code(s): I10 - ESSENTIAL (PRIMARY) HYPERTENSION Status: Chronic - Plan Plan: 52 yo with ESRD 2/2 HTN who missed her dialysis this week (usually MWF) presents with chest pain admitted for hyperkalemia requiring emergent dialysis #Hyperkalemia -Pt K>7, requiring emergent dialysis, resolved after dialysis #Hypertensive Emergency, resolved -vitals q4h -hydralazine prn -restart home meds #Typical Chest Pain, resolved -Suspect demand ischemia -Trops negative -Will get new EKG if chest pain returns #Nausea and Vomiting,resolved -Will provide zofran prn #ESRD -Contine MWF dialysis per neurology #HLD -will start high intensity statin and aspirin daily #Hx of cocaine abuse -denied current use -will check UDS DVT: heparin 5000 TID GI: none Code: FULL <Dasia Sahu - Last Filed: 04/20/18 13:28> Attending Addendum - Attending Addendum Date/Time: 04/20/18 2573 I personally evaluated the patient and discussed the management with Dr. Josue I agree with the History, Examination, Assessment and Plan documented above with any addition or exceptions noted below. Hypertensive emergency- bp stable on home meds and no recurrent chest pain. Negative troponins and EKG and normal stress 09/2016. hyperkalemia- resolved after dialysis. ESRD-dialysis per nephro Stable for d/c home. Gave information for [facility] to establish PCP as she states she doesn't have one. <Kari Acuña - Last Filed: 04/20/18 13:45>
[2018-04-20] MEDS ORDERED: Acetaminophen 500 MG TAB PO PRN (09:06)
[2018-04-20] MEDS ORDERED: Senokot 8.6 MG TAB PO PRN (09:07)
[2018-04-20] MEDS: Heparin 5,000 UNITS/ML VIAL SC SCH (09:33)
[2018-04-20] MEDS: Carvedilol 25 MG TAB PO SCH (09:33)
[2018-04-20] MEDS: cloNIDine 0.3 MG TAB PO SCH (09:33)
[2018-04-20 12:01] VITALS: BP 105/57; TEMP 98.4
--- NOTE | 2018-04-20 15:29 | PRG ---
DATE OF SERVICE: 04/20/2018 NEPHROLOGY PROGRESS NOTE SUBJECTIVE: Patient was seen and examined at bedside and overnight events noted. Patient denies any shortness of breath or chest pain or palpitation. No history of nausea or vomiting or diarrhea or f ever or chills or cramps. OBJECTIVE: GENERAL: This is a well-built -Vincentian female in no apparent distress. VITAL SIGNS: Temperature 97, pulse 70, respirations 18, blood pressure 144/78. HEENT: Atraumatic, normocephalic. Oral mucosa is moist. NECK: Supple. CARDIOVASCULAR: S1, S2 heard. Rate and rhythm regular. RESPIRATORY: Clear to auscultation. GASTROINTESTINAL: Abdomen is soft. MUSCULOSKELETAL: No tenderness. No edema. DERMATOLOGIC: No skin rash. NEUROLOGIC: Alert and awake and oriented x3. No focal neurologic deficits. Moving all the extremiti es. PSYCHIATRIC: Mood and affect normal. LABORATORY DATA: Potassium 4.6, BUN 22, creatinine 6.9. ASSESSMENT AND PLAN: 1. End-stage renal disease. Continue dialysis Tuesday, Tuesday, and Tuesday. 2. Hyperkalemia, better. Limit potassium in the diet. 3. Metabolic acidosis. 4. Edema, controlled. 5. Hypertension, stable. 6. Anemia, monitor hemoglobin. Plan is to continue dialysis Tuesday, Tuesday, and Tuesday. Limit potassium in the diet to treat con stipation.
--- NOTE | 2018-04-21 15:12 | EKG ---
Test Reason : Blood Pressure : / mmHG Vent. Rate : 095 BPM Atrial Rate : 095 BPM P-R Int : 142 ms QRS Dur : 080 ms QT Int : 388 ms P-R-T Axes : 046 -05 077 degrees QTc Int : 487 ms Normal sinus rhythm Prolonged QT Abnormal ECG When compared with ECG of 19-APR-2018 12:41, (Unconfirmed) No significant change was found Confirmed by LUCIAN REDDY, CHERYL ([id number]) on 04/21/2018 3:12:20 PM Referred By: AWAIS Confirmed By:CHERYL EPTSEIN MD
--- NOTE | 2018-04-22 17:32 | EKG ---
Test Reason : Blood Pressure : / mmHG Vent. Rate : 080 BPM Atrial Rate : 080 BPM P-R Int : 180 ms QRS Dur : 100 ms QT Int : 408 ms P-R-T Axes : 050 -09 071 degrees QTc Int : 470 ms Normal sinus rhythm Normal ECG Confirmed by ANNE ERNANDEZ M.D. ([id number]), publications editor ZAK MYERS ([id number]) on 04/22/2018 5:32:13 PM Referred By: Confirmed By:ANNE ERNANDEZ M.D.
== END 2018-04-20 12:29 | disposition home or self-care (01) ==
LOC: ERS 12:35 → 2SW 17:56
PROVIDERS: ADMIT Student in an Organized Health Care Education/Training Program; ATTEND Student in an Organized Health Care Education/Training Program
DX: R07.89 Other chest pain (principal); E78.5 Hyperlipidemia, unspecified; E87.5 Hyperkalemia; I16.0 Hypertensive urgency; I12.0 Hypertensive chronic kidney disease with stage 5 chronic kidney disease or end stage renal disease; N18.6 End stage renal disease; D63.1 Anemia in chronic kidney disease; F14.11 Cocaine abuse, in remission; F41.9 Anxiety disorder, unspecified; E87.2 Acidosis; Z91.15 Patient's noncompliance with renal dialysis; Z79.899 Other long term (current) drug therapy; Z88.0 Allergy status to penicillin; Z88.5 Allergy status to narcotic agent; Z99.2 Dependence on renal dialysis
CPT/HCPCS: 71045; 74018; 80048 ×2; 80053; 80061; 82553 ×2; 84132; 84484 ×2; 85025 ×2; 93005; 94644; 94760 ×2; 96374; 96375 ×2; 96376 ×2; 97139; 99285; G0378 ×2; 36415; 90935; 93010; G0257; J0360; J1644; J1815; J2405; J3010; J7611

== ENCOUNTER 2018-07-25 10:33 | Outpatient (CLI) | payer MEDICARE, MEDICAID ==
--- NOTE | 2018-07-25 17:21 | CT ---
CT ABDOMEN NONCONTRAST CT PELVIS NONCONTRAST: 07/25/18 HISTORY: 52-year-old female with chronic constipation, nausea, vomiting, and abdominal distention. COMPARISON: CT of 07/29/16. TECHNIQUE: IV contrast: Not administered. Oral contrast: Administered. FINDINGS: The kidneys are abnormally very small bilaterally, having further decreased in size since the previou s CT. There is no hydronephrosis. There is no renal or bladder calculus. Normal, thin urinary bladder parsons. Large amount of colonic stool in the cecum, ascending colon, hepatic flexure, and transverse colon. Small to moderate amount of stool in the left colon. No small bowel dilation. No colonic diver ticulitis. Within the limitations of a noncontrast scan, no obvious pathology identified involving pa ncreas, adrenals, abdominal aorta, liver, or spleen. No pleural effusion. No ascites. No pneumoperito neum. The appendix is normal. The stomach is distended with ingested food material and oral contrast material. IMPRESSION: 1. Evidence for constipation. 2. Atrophic, hypofunctioning or nonfunctioning kidneys. 3. Distended stomach filled with ingested gastric contents. POS: [facility]
== END 2018-07-25 10:34 | disposition home or self-care (01) ==
LOC: BICCT 10:33
PROVIDERS: ATTEND Internal Medicine Gastroenterology
DX: K59.09 Other constipation (principal); K31.89 Other diseases of stomach and duodenum; N26.1 Atrophy of kidney (terminal); R14.0 Abdominal distension (gaseous); R11.2 Nausea with vomiting, unspecified
CPT/HCPCS: 74176

== ENCOUNTER 2018-08-18 08:33 | Emergency (ER) | payer MEDICARE, MEDICAID ==
--- NOTE | 2018-08-18 10:28 | RAD ---
PORTABLE CHEST 1 VIEW: Date: 08/18/18 Time: 0935 hours HISTORY: Cough, shortness of breath. Patient comes from dialysis. FINDINGS: Comparison made with exam of 10/09/17. The heart size is mildly enlarged. The lungs are expanded without focal areas of consolidation, pneum othorax, lucita pulmonary edema, or pleural effusions. IMPRESSION: No acute process. POS: [facility]
== END 2018-08-18 10:13 | disposition home or self-care (01) ==
LOC: ERS 08:33
DX: J06.9 Acute upper respiratory infection, unspecified (principal); E78.00 Pure hypercholesterolemia, unspecified; F20.9 Schizophrenia, unspecified; F31.9 Bipolar disorder, unspecified; F41.9 Anxiety disorder, unspecified; I10 Essential (primary) hypertension; N28.9 Disorder of kidney and ureter, unspecified; Z79.899 Other long term (current) drug therapy
CPT/HCPCS: 71045; 87804; 94640; J7620

== ENCOUNTER 2018-09-07 15:26 | Outpatient (CLI) | payer MEDICARE, MEDICAID ==
--- NOTE | 2018-09-07 16:11 | RAD ---
ABDOMEN ONE VIEW: 09/07/18 HISTORY: Abdominal distention and chronic constipation. COMPARISON: Abdomen radiograph 10/20/17. FINDINGS: Evaluation for free air is limited without upright examination. Moderate stool burden throughout th e colon. No abnormal calcifications projecting over the renal shadows. No dilated loops of large or s mall bowel. Small phleboliths in the pelvis. IMPRESSION: Moderate stool burden. No evidence for bowel obstruction. POS: [facility]
== END 2018-09-07 15:27 | disposition home or self-care (01) ==
LOC: BICRAD 15:26
PROVIDERS: ATTEND Internal Medicine Gastroenterology
DX: K59.09 Other constipation (principal); R14.0 Abdominal distension (gaseous); R11.2 Nausea with vomiting, unspecified
CPT/HCPCS: 74018

== ENCOUNTER 2018-09-15 12:40 | Emergency (ER) | payer MEDICARE, OTHER ==
[2018-09-15 13:45] LABS: Mean Corpuscular HGB CONC 32.1 g/dL (32.0-36.0); Mean Corpuscular Hemoglobin 28.6 pg (27.0-31.0); Mean Corpuscular Volume 89.2 fL (78.0-98.0); Mean Platelet Volume 8.3 fL (7.4-10.4); Platelet Count 233 thou/uL (130-400); RBC Distribution Width 15.8 % (11.5-14.5); Red Blood Cell (RBC) Count 3.49 mill/uL (4.20-5.40); White Blood Cell (WBC) Count 7.5 thou/uL (4.8-10.8)
--- NOTE | 2018-09-15 13:54 | CT ---
CT ABDOMEN AND PELVIS NONCONTRAST: HISTORY: Flank pain. COMPARISON: 07/25/2018 FINDINGS: The kidneys are again shown to be small. Each renal collecting system and ureter are decompressed wi thout stone evident. Phleboliths are seen outside the course of each ureter, within each side of the retroperitoneum. Lack of contrast limits evaluation for other abnormalities. No evidence of bowel obstruction. Small to moderate amount of stool throughout the colon. No free a ir or free fluid. IMPRESSION: No significant abnormalities demonstrated. POS: [facility]
[2018-09-15 14:01] LABS: ALT (SGPT) 9 U/L (8-55); AST (SGOT) 11 U/L (5-34); Alkaline Phosphatase 64 U/L (40-150); Anion Gap 19 mmol/L (10-20); BUN (Urea Nitrogen) 20 mg/dL (9.8-20.1); Bilirubin, Total 0.7 mg/dL (0.2-1.2); Calc. Creatinine Clearance 0 mL/min (70-130); Calcium 9.3 mg/dL (7.8-10.44); Carbon Dioxide 22 mmol/L (22-29); Chloride 104 mmol/L (98-107); Estimated GFR-MDRD 7; Globulin 3.4 g/dL (2.4-3.5); Glucose 82 mg/dL (70-105); Lipase 34 U/L (8-78); Potassium 4.4 mmol/L (3.5-5.1); Protein, Total 7.4 g/dL (6.0-8.3); Sodium 141 mmol/L (136-145)
[2018-09-15] MEDS ORDERED: Lidocaine Viscous Sol 2% 15 ml UD Cup ONE (14:02)
[2018-09-15] MEDS ORDERED: Mag-Al 1200 mg/1200 mg/30 ML UDCUP ONE (14:03)
[2018-09-15 14:12] LABS: Anisocytosis SLIGHT = 6-15 cells (100X) (0-5/hpf); Hypochromia SLIGHT = 6-15 cells (100X) (0-5/hpf); Lymphocytes 20 % (21-51); MDiff Complete? YES; Monocytes 3 % (0-10); Neutrophil 77 % (42-75); Platelet Morphology Comment Appears Adequate
== END 2018-09-15 14:24 | disposition home or self-care (01) ==
LOC: ERS 12:40
DX: K59.09 Other constipation (principal); E78.5 Hyperlipidemia, unspecified; I12.0 Hypertensive chronic kidney disease with stage 5 chronic kidney disease or end stage renal disease; N18.6 End stage renal disease; F41.9 Anxiety disorder, unspecified; F31.9 Bipolar disorder, unspecified; F20.9 Schizophrenia, unspecified; Z99.2 Dependence on renal dialysis; Z79.899 Other long term (current) drug therapy
CPT/HCPCS: 36415; 74176; 80053; 83690; 85025; 96372

== ENCOUNTER 2018-12-28 18:11 | Inpatient (IN) | payer MEDICARE, MEDICAID ==
--- NOTE | 2018-12-28 19:32 | RAD ---
Radiograph chest one view: DATE: 12/28/2018 Time: 7:19 PM HISTORY: 53-year-old female with dyspnea COMPARISON: 08/18/2018 FINDINGS: Again noted is the cardiomegaly. There is a new finding of alveolar pulmonary densities throughout bi lateral lower lung zones, and interstitial densities in the mid lung zones. Pulmonary venous engorgement. No pneumothorax. Probable small bilateral pleural effusions. IMPRESSION: Congestive heart failure with pulmonary edema and pleural effusions
[2018-12-28 19:43] LABS: ALT (SGPT) 11 U/L (8-55); AST (SGOT) 16 U/L (5-34); Albumin 4.3 g/dL (3.5-5.0); Alkaline Phosphatase 50 U/L (40-150); Anion Gap 24 mmol/L (10-20); BUN (Urea Nitrogen) 62 mg/dL (9.8-20.1); Bilirubin, Total 0.7 mg/dL (0.2-1.2); Calc. Creatinine Clearance 0 mL/min (70-130); Calcium 10.6 mg/dL (7.8-10.44); Carbon Dioxide 22 mmol/L (22-29); Chloride 102 mmol/L (98-107); Estimated GFR-MDRD 3; Globulin 3.3 g/dL (2.4-3.5); Glucose 85 mg/dL (70-105); Potassium 5.5 mmol/L (3.5-5.1); Protein, Total 7.6 g/dL (6.0-8.3); Sodium 142 mmol/L (136-145)
[2018-12-28] MEDS ORDERED: Acetaminophen 500 MG TAB ONE (19:50)
[2018-12-28 20:21] LABS: #Basophils 0.1 thou/uL (0.0-0.2); #Eosinphils 0.1 thou/uL (0.0-0.7); #Lymphocytes 1.5 thou/uL (1.20-3.40); #Monocytes 0.7 thou/uL (0.11-0.59); #Neutrophils 12.3 thou/uL (1.40-6.50); %Basophils 0.4 % (0.0-1.0); %Eosinophils 0.4 % (0.0-10.0); %Lymphocytes 10.3 % (21.0-51.0); %Monocytes 5.1 % (0.0-10.0); %Neutrophils 83.8 % (42.0-75.0); Hemoglobin 10.4 g/dL (12.0-16.0); Mean Corpuscular HGB CONC 32.8 g/dL (32.0-36.0); Mean Corpuscular Hemoglobin 28.2 pg (27.0-31.0); Mean Corpuscular Volume 85.9 fL (78.0-98.0); Mean Platelet Volume 8.6 fL (7.4-10.4); Platelet Count 266 thou/uL (130-400); RBC Distribution Width 15.2 % (11.5-14.5); Red Blood Cell (RBC) Count 3.69 mill/uL (4.20-5.40); White Blood Cell (WBC) Count 14.7 thou/uL (4.8-10.8)
[2018-12-28] MEDS ORDERED: Aspirin 325 MG TAB ONE (21:12)
[2018-12-28] MEDS ORDERED: Aztreonam 1 GM in Sodium Chloride 0.9% 100 ML IVPB ONE (21:30)
[2018-12-28 21:52] LABS: Lactic Acid 2.1 mmol/L (0.5-2.2)
[2018-12-28] MEDS ORDERED: Acetaminophen 325 MG TAB PO PRN (22:13)
[2018-12-28] MEDS ORDERED: Ondansetron PF 4 MG/2 ML Vial IVP PRN (22:13)
[2018-12-28] MEDS ORDERED: Ondansetron ODT 4 MG TAB SL PRN (22:13)
--- NOTE | 2018-12-28 23:21 | PDOC.FPRHP ---
- History of Present Illness Chief Complaint: dyspnea History of Present Illness: 53 yo F with PMH ESRD on HD MWF, HTN, HLD, depression presents for difficulty breathing and chest tightness. Unable to obtain history from patient. No family at bedside. She is sleeping, will awake but then minimally answers questions. Reports chest tightness. Per ED report, patient missed Wed. dialysis and now presented with family for trouble breathing, CP, and 2 possible seizures. O2 sat 88% with EMS. Reported cough, dyspnea on exertion, orthopnea, cough, CP, anxiety. Patient told nurse her mother passed this week and she used cocaine recently. Fever with no known cause. Nephrology consulted from ED. ED Course: vanc, aztreonam, ASA, tylenol - Allergies/Adverse Reactions Allergies Allergy/AdvReac Type Severity Reaction Status Date / Time Penicillins Allergy Verified 04/19/18 18:36 morphine AdvReac Verified 04/19/18 18:36 - Home Medications Medication Instructions Recorded Confirmed Type Carvedilol 25 mg PO BID 10/25/16 04/19/18 History ALPRAZolam [Xanax] 2 mg PO BIDPRN PRN 07/21/17 04/19/18 History NIFEdipine [Procardia XL] 30 mg PO HS #30 tab 10/11/17 04/19/18 Rx Doxepin HCl 50 mg PO HS 04/19/18 04/19/18 History Linaclotide [Linzess] 290 mcg PO DAILY-AC 04/19/18 04/19/18 History OXcarbazepine [Trileptal] 150 mg PO DAILY 04/19/18 04/19/18 History cloNIDine [Catapres] 0.3 mg PO BID 04/19/18 04/19/18 History Docusate [Colace] 100 mg PO BID PRN 04/20/18 04/20/18 History Esomeprazole Magnesium 20 mg PO QAM 04/20/18 04/20/18 History Promethazine [Phenergan] 25 mg PO BID PRN 04/20/18 04/20/18 History - History PMHx: ESRD on HD MWF, HTN, HLD, depression PSHx: knee surgery, L arm AV graft, uterine ablation FHx: mom-DM, HTN, kidney filure Social: No tobacco, alcohol, drug use. , on disability. - Review of Systems ROS unobtainable: due to mental status Cardiovascular: reports: chest pain - Vital signs BP: 201/122 HR: 112 RR: 20 Tmax: 98.7 Pox: 100% on RA Wt: 68 kg - Physical Exam Constitutional: NAD (sleeping) HEENT: normocephalic and atraumatic Heart: RRR, normal S1/S2, no murmurs/rubs/gallops, no edema Lungs: CTAB, no respiratory distress, other (dimished breath sounds lower lobes) Abdomen: soft, bowel sounds present Musculoskeletal: normal structure Skin: good turgor, capillary refill <2 seconds FMR H&P: Results - Labs Result Diagrams: 12/29/18 00:20 12/29/18 00:20 Lab results: WBC 14.7 thou/uL (4.8-10.8) H 12/28/18 20:01 Hgb 10.4 g/dL (12.0-16.0) L 12/28/18 20:01 Hct 31.7 % (36.0-47.0) L 12/28/18 20:01 MCV 85.9 fL (78.0-98.0) 12/28/18 20:01 Plt Count 266 thou/uL (130-400) 12/28/18 20:01 Neutrophils % 83.8 % (42.0-75.0) H 12/28/18 20:01 Sodium 142 mmol/L (136-145) 12/28/18 18:48 Potassium 5.5 mmol/L (3.5-5.1) H 12/28/18 18:48 Chloride 102 mmol/L (98-107) 12/28/18 18:48 Carbon Dioxide 22 mmol/L (22-29) 12/28/18 18:48 BUN 62 mg/dL (9.8-20.1) H 12/28/18 18:48 Creatinine 13.95 mg/dL (0.6-1.1) H 12/28/18 18:48 Glucose 85 mg/dL (70-105) 12/28/18 18:48 Lactic Acid 2.1 mmol/L (0.5-2.2) 12/28/18 21:29 Calcium 10.6 mg/dL (7.8-10.44) H 12/28/18 18:48 Total Bilirubin 0.7 mg/dL (0.2-1.2) 12/28/18 18:48 AST 16 U/L (5-34) 12/28/18 18:48 ALT 11 U/L (8-55) 12/28/18 18:48 Alkaline Phosphatase 50 U/L (40-150) 12/28/18 18:48 CK-MB (CK-2) 2.0 ng/mL (0-6.6) 12/28/18 20:01 B-Natriuretic Peptide 3336.1 pg/mL (0-100) H 12/28/18 20:01 Serum Total Protein 7.6 g/dL (6.0-8.3) 12/28/18 18:48 Albumin 4.3 g/dL (3.5-5.0) 12/28/18 18:48 FMR H&P: A/P - Problem List (1) SIRS (systemic inflammatory response syndrome) Current Visit: Yes Status: Acute Code(s): R65.10 - SIRS OF NON-INFECTIOUS ORIGIN W/O ACUTE ORGAN DYSFUNCTION (2) Elevated brain natriuretic peptide (BNP) level Current Visit: Yes Status: Acute Code(s): R79.89 - OTHER SPECIFIED ABNORMAL FINDINGS OF BLOOD CHEMISTRY (3) Chronic anemia Current Visit: Yes Status: Chronic Code(s): D64.9 - ANEMIA, UNSPECIFIED (4) HLD (hyperlipidemia) Current Visit: Yes Status: Chronic Code(s): E78.5 - HYPERLIPIDEMIA, UNSPECIFIED (5) Depression Current Visit: Yes Status: Chronic Code(s): F32.9 - MAJOR DEPRESSIVE DISORDER, SINGLE EPISODE, UNSPECIFIED (6) Hx of cocaine abuse Current Visit: Yes Status: Acute Code(s): Z87.898 - PERSONAL HISTORY OF OTHER SPECIFIED CONDITIONS (7) Hyperkalemia Current Visit: Yes Status: Acute Code(s): E87.5 - HYPERKALEMIA (8) ESRD (end stage renal disease) on dialysis Current Visit: Yes Status: Chronic Code(s): N18.6 - END STAGE RENAL DISEASE ; Z99.2 - DEPENDENCE ON RENAL DIALYSIS (9) HTN (hypertension) Current Visit: Yes Status: Chronic Code(s): I10 - ESSENTIAL (PRIMARY) HYPERTENSION - Plan 53 yo F with PMH ESRD, HTN, HLD presents after missed dialysis with complaint of dyspnea and chest pain. SIRS, unknown source - tachycardia, fever 101.6 rectal, WBC 14.7 on admission - s/p vanc, aztreonam in ED (12/28) - ED report not suggestive of any particular infectious source. Will discuss further symptoms with patient in am when hopefully more awake and cooperative. - procal 0.06, less likely bacterial source. - Bcx pending. Will continue empiric coverage with vanc and zosyn for now and plan to deescalate quickly. - will recheck CBC in am ESRD on HD MWF - missed dialysis Tuesday - Nephrology consulted from ED. Plan for HD tonight Hyperkalemia - K+ 5.5 with no EKG changes - dialysis as above Elevated BNP - BNP 3336, significantly more elevated compared to prior - CXR showed CHF with pulm edema and b/l pleural effusion. Missed dialysis likely contributory, will order echo for further eval. HTN - BP 190s, will likely improve with dialysis - restart home carvedilol, clonidine, nifedipine Chronic normocytic anemia - Hgb 9, at baseline, 2/2 chronic disease HLD - continue home atorvastatin Depression - continue home sertraline, doxepin - recent history of loss of mother Cocaine abuse - UDS pending, unsure if makes urine Ppx: Heparin Diet: renal Dispo: admit to telemetry inpatient. Plan to get emergent dialysis tonight. Case discussed with Dr. Sol. FMR H&P: Upper Level - Pertinent history 53 yo AAF with PMHx ESRD presents with chest pain after missing HD on Tuesday. Nursing reports she was told patient's mother a couple of days ago and afterward she used crack-cocaine and did not go to dialysis. She states she feels a chest tightness but will not give any further history. She is able to state name, location and time. - Pertinent findings Hypertensive, intermittently tachycardic Labs and imaging reviewed Gen: sleepy, arousable HEENT: NCAT, MMM CV: RRR, no murmur noted RESP: CTAB ABD: soft, NTND EXT: no edema, pulses 2+ radial and dorsalis pedis - Plan Date/Time: 12/28/18 2320 53 yo AAF with ESRD presents with chest pain likely 2/2 fluid overload from missing dialysis 1. Atypical chest pain - DDX includes fluid overload, CAD, possible new-onset HF, cocaine abuse - Most recent echo 2017 showed EF 60-65% - Trend trops, monitor on tele - Dialysis now to help remove excess fluids - If CP persists, consider cardiology consultation as not a good candidate for stress - BNP and Trops likely falsely elevated 2/2 CKD however newly - Echo 2. ESRD - Dr. Dunbar consulted in ED - HD tonight and per nephro recs 3. HTN - Will give now dose of clonidine - Careful use of B-nahomi with recent cocaine use 4. Drug abuse/suspected depression - Consider medication alteration 5. Newly elevated BNP - Echo 6. Elevated WBC - SIRS with intermittent tachycardia - No suspected source of infection - Trend and consider further w/u if persistent 7. Hyperkalemia - Going for dialysis now - Monitor Please see Dr. Jerez's note for remainder of A/P I, Giovana Melo MD, PGY-3, have evaluated this patient and agree with findings/ plan as outlined by employee communications intern resident. Pertinent changes/additions are listed here.
[2018-12-29] MEDS ORDERED: cloNIDine 0.3 MG TAB PO SCH ×2 (00:45→09:00)
[2018-12-29 02:16] LABS: #Basophils 0.1 thou/uL (0.0-0.2); #Eosinphils 0.1 thou/uL (0.0-0.7); #Lymphocytes 1.5 thou/uL (1.20-3.40); #Monocytes 0.8 thou/uL (0.11-0.59); #Neutrophils 10.6 thou/uL (1.40-6.50); %Basophils 0.6 % (0.0-1.0); %Eosinophils 0.4 % (0.0-10.0); %Lymphocytes 11.3 % (21.0-51.0); %Monocytes 5.8 % (0.0-10.0); %Neutrophils 81.9 % (42.0-75.0); Mean Corpuscular HGB CONC 33.4 g/dL (32.0-36.0); Mean Corpuscular Hemoglobin 28.5 pg (27.0-31.0); Mean Corpuscular Volume 85.1 fL (78.0-98.0); Mean Platelet Volume 8.1 fL (7.4-10.4); Platelet Count 248 thou/uL (130-400); RBC Distribution Width 15.1 % (11.5-14.5); Red Blood Cell (RBC) Count 3.16 mill/uL (4.20-5.40)
[2018-12-29 02:35] LABS: Troponin I 0.276 ng/mL (< 0.028)
[2018-12-29 02:49] LABS: HBSAg Index 0.34 S/CO (0-0.99); Hep B Surf Ag Non-Reactive S/CO (NonReactive)
[2018-12-29 02:55] VITALS: BMI 25.0
[2018-12-29 02:55] LABS: Anion Gap 15 mmol/L (10-20); BUN (Urea Nitrogen) 27 mg/dL (9.8-20.1); Calc. Creatinine Clearance 12 mL/min (70-130); Calcium 9.9 mg/dL (7.8-10.44); Carbon Dioxide 28 mmol/L (22-29); Chloride 101 mmol/L (98-107); Estimated GFR-MDRD 9; Glucose 106 mg/dL (70-105); Potassium 3.5 mmol/L (3.5-5.1); Sodium 140 mmol/L (136-145)
[2018-12-29 07:41] LABS: Amphetamine Not Detected (NotDetected); Barbiturates Screen Not Detected (NotDetected); Benzodiazepine Screen Not Detected (NotDetected); Cocaine Metabolite Screen Detected (NotDetected); Medtox Reader # READER 4; Methadone Not Detected (NotDetected); Methamphetamine Not Detected (NotDetected); Opiate Screen Not Detected (NotDetected); Oxycodone Screen Not Detected (NotDetected); Phencyclidine (PCP) Not Detected (NotDetected); THC/Cannabinoid Screen Not Detected (NotDetected); Tricyclic Screen Not Detected (NotDetected)
[2018-12-29 07:42] LABS: Medtox Control Line Valid? VALID (VALID)
[2018-12-29 08:27] LABS: Bilirubin Negative (Negative); Blood, Urine Small (Negative); Clarity CLEAR (Clear); Glucose, Urine (Dipstick) 100 mg/dL (Negative); Leukocyte Small (Negative); Nitrite Negative (Negative); Protein, Urine (Dipstick) 100 mg/dL (Neg-Trace); Specific Gravity, Urine 1.005 (1.002-1.036); Urobilinogen 0.2 mg/dL (0.2-1.0)
[2018-12-29 08:30] LABS: Bacteria/HPF None Seen HPF (None Seen); Hyaline Casts/LPF 0-3 HYALINE CAST LPF (0-3 Hyaline); RBC/HPF 0-3 HPF (0-3)
--- NOTE | 2018-12-29 08:37 | PDOC.FM ---
- Subjective Subjective: NAEO. Denies chest pain. Still having difficulty in breathing but it's improved after dialysis. Denies fevers, chills, nausea. - Objective MAR Reviewed: Yes Vital Signs & Weight: Vital Signs (12 hours) Temp Pulse Resp BP BP Pulse Ox 12/29/18 07:34 100.2 F H 114 H 18 127/78 94 L 12/29/18 04:20 100.2 F H 105 H 18 152/87 H 94 L 12/29/18 00:44 205/125 H 12/28/18 22:25 98.7 F 112 H 20 201/122 H 100 12/28/18 22:05 98.7 F 111 H 20 201/122 H 100 Weight Weight 67.9 kg I&O: 12/28/18 12/29/18 12/30/18 06:59 06:59 06:59 Intake Total 90 Output Total 350 Balance -260 Result Diagrams: 12/29/18 00:20 12/29/18 00:20 Phys Exam - Physical Examination Constitutional: NAD patient sleepy HEENT: PERRLA, moist MMs Neck: no nodes, full ROM bibasilar crackles Cardiovascular: no significant murmur tachycardic Gastrointestinal: soft, positive bowel sounds Musculoskeletal: no edema, pulses present Neurological: non-focal, moves all 4 limbs Skin: no rash, cap refill <2 seconds Dx/Plan (1) Sepsis Code(s): A41.9 - SEPSIS, UNSPECIFIED ORGANISM Status: Acute (2) Elevated brain natriuretic peptide (BNP) level Code(s): R79.89 - OTHER SPECIFIED ABNORMAL FINDINGS OF BLOOD CHEMISTRY Status : Acute (3) Hx of cocaine abuse Code(s): Z87.898 - PERSONAL HISTORY OF OTHER SPECIFIED CONDITIONS Status: Acute (4) SIRS (systemic inflammatory response syndrome) Code(s): R65.10 - SIRS OF NON-INFECTIOUS ORIGIN W/O ACUTE ORGAN DYSFUNCTION Status: Acute (5) ESRD (end stage renal disease) on dialysis Code(s): N18.6 - END STAGE RENAL DISEASE; Z99.2 - DEPENDENCE ON RENAL DIALYSIS Status: Chronic (6) HTN (hypertension) Code(s): I10 - ESSENTIAL (PRIMARY) HYPERTENSION Status: Chronic (7) Cocaine abuse Code(s): F14.10 - COCAINE ABUSE, UNCOMPLICATED Status: Acute (8) Volume overload Code(s): E87.70 - FLUID OVERLOAD, UNSPECIFIED Status: Acute (9) UTI (urinary tract infection) Status: Acute - Plan Plan: 53 yo F with PMH ESRD, HTN, HLD presents after missed dialysis with complaint of dyspnea and chest pain. SIRS w/ unknown source - tachycardia, fever 101.6 rectal, WBC 14.7 on admission - s/p vanc, aztreonam in ED (12/28) - Patient still with low grade fever, tachycardic - will start on empiric abx with vanc and cefepime - UA consistent with UTI, urine cx pending, cefepime will cover - Will repeat CXR after dialysis, may reveal PNA after fluid has been pulled off - Blood cx pending - Dialysis access site looks non-infected Elevated troponoins -Likley demand ischemia, EKG stable -Continue trending troponins -TTE to further assess -Consulted cardiology in light if likely new onset heart failure Elevated BNP - BNP 3336, significantly more elevated compared to prior - CXR showed CHF with pulm edema and b/l pleural effusion. Missed dialysis likely contributory, will order echo for further eval ESRD on HD MWF - missed dialysis Tuesday - Nephrology consulted from ED, repeat dialysis today to help with breathing Hyperkalemia, resolved HTN - Stable - restart home clonidine, nifedipine - hold carvedilol Chronic normocytic anemia - Hgb 9, at baseline, 2/2 chronic disease HLD - continue home atorvastatin Depression - continue home sertraline, doxepin - recent history of loss of mother Cocaine abuse - UDS pending, unsure if makes urine Ppx: Heparin Diet: renal Dispo: >2 MN Addendum - Attending - Attending Attestation Date/Time: 12/29/18 1027 I personally evaluated the patient and discussed the management with Dr. Aldrich. I agree with the History, Examination, Assessment and Plan documented above with any addition or exceptions noted below. The patient still has crackles in bilateral bases. Spoke with Dr. Dunbar who plans to pull off more fluid with dialysis.
[2018-12-29] MEDS: Heparin 5,000 UNITS/ML VIAL SC SCH ×3 (08:58→20:23)
[2018-12-29] MEDS ORDERED: Carvedilol 25 MG TAB PO SCH (09:00)
[2018-12-29 09:27] LABS: CKMB 0.9 ng/mL (0-6.6)
--- NOTE | 2018-12-29 12:00 | RAD ---
PORTABLE CHEST: INDICATION: Dyspnea. COMPARISON: 12/28/2018. FINDINGS: Mild cardiomegaly. The congestive changes appear improved from yesterday. There is evidence of smal l effusions. I cannot exclude left basilar atelectasis and/or infiltrate. POS: [facility]
--- NOTE | 2018-12-29 13:46 | PRG ---
DATE OF SERVICE: 12/29/2018 SUBJECTIVE: A 53-year-old lady being seen for end-stage renal disease. The patient tolerated dialysis well. Denied any nausea, vomiting, or chest pain. OBJECTIVE: See above. CONSTITUTIONAL: Awake, alert, in no acute distress. VITAL SIGNS: Afebrile. Pulse 77, breathing 16, blood pressure 127/78. GENERAL APPEARANCE AND MENTAL STATUS: Fair. HEAD/NECK: Normocephalic. Atraumatic. EYES: EOMI. No deformity. EARS: Clear. No ulcers. NOSE: Intact. No lesions. MOUTH: Clear. No discharge. THROAT: Clear. No exudate. LUNGS: Clear. No crackles. CARDIAC: S1, S2. No rub. ABDOMEN: Benign. Bowel sounds positive. GENITALIA/RECTUM: Hernandez absent. BACK/EXTREMITIES: Edema 0+. NEUROLOGICAL: Alert and motor intact. SKIN: LYMPHATICS: ASSESSMENT AND PLAN: 1. Stage chronic kidney disease, plan dialysis Tuesday. 2. Hypertension, stable. 3. Anemia, stable. 4. Offered dialysis again today. The patient declined. Job ID: [id number]
--- NOTE | 2018-12-29 14:15 | CON ---
DATE OF CONSULTATION: 12/28/2018 TIME OF CONSULT: 10:00 p.m. in the emergency room. REASON FOR CONSULTATION: End-stage renal disease and hyperkalemia. HISTORY OF PRESENT ILLNESS: This is a very pleasant 53-year-old female, who presented to the hospital with fever, chills, and up high potassium. The patient had missed dialysis. The patient denies any nausea, vomiting, or chest pain. PAST MEDICAL HISTORY: Significant for hypertension, depression, congestive heart failure, knee surgery, AV fistula, uterine ablation. FAMILY HISTORY: Negative for ESRD. ALLERGIES: REVIEWED. MEDICATIONS: Home medication list reviewed. Hospital medications, reviewed. REVIEW OF SYSTEMS: A 15-point review of system was performed, negative except for positives noted above. GENERAL: HEAD: NECK: No swelling or lumps. NOSE: No epistaxis or discharge. EYES: No diplopia or pain. RESPIRATORY: CARDIOVASCULAR: GASTROINTESTINAL: /RENAL DIETITIAN: MUSCULOSKELETAL: No joint pain. NEUROPSYCHIATRIC SYSTEMS: No suicidal ideation. No ideation. SKIN: Denies any rash or ulcer. CONSTITUTIONAL: No fever or chills. PHYSICAL EXAMINATION: VITAL SIGNS: Reviewed. See above. Awake, alert, in no acute distress. GENERAL APPEARANCE AND MENTAL STATUS: Fair. HEAD/NECK: Normocephalic. Atraumatic. EYES: EOMI. No deformity. EARS: Clear. No ulcers. NOSE: Intact. No lesions. MOUTH: Clear. No discharge. THROAT: Clear. No exudate. LUNGS: Clear. No crackles. CARDIAC: S1, S2. No rub. ABDOMEN: Benign. Bowel sounds positive. GENITALIA/RECTUM: Hernandez absent. BACK/EXTREMITIES: Edema 0+. NEUROLOGICAL: Alert and motor intact. SKIN: LYMPHATICS: LABORATORY DATA: Reviewed. ASSESSMENT AND PLAN: 1. Stage 6____ chronic kidney disease. Plan dialysis. 2. Hyperkalemia. Plan dialysis. 3. Anemia, stable. 4. Hypertension. Plan ultrafiltration. Compliance was discussed with the patient. Job ID: [id number] [facility]
[2018-12-29] MEDS ORDERED: Dicyclomine 20 MG TAB PO PRN (17:00)
[2018-12-29] MEDS ORDERED: Dicyclomine 20 MG TAB PO SCH (17:00)
[2018-12-29] MEDS: Cefepime 2 GM in Sodium Chloride 0.9% 100 ML IVPB SCH (20:22)
[2018-12-29] MEDS: cloNIDine 0.3 MG TAB PO SCH (20:22)
[2018-12-29] MEDS: Doxepin HCl 25 MG CAP PO SCH (20:22)
[2018-12-29] MEDS ORDERED: DOXEPIN HCL 50 MG PO SCH (21:00)
--- NOTE | 2018-12-30 00:07 | CON ---
DATE OF CONSULTATION: 12/29/2018 INDICATION FOR CONSULTATION: A 53-year-old female with chest pain, indeterminate cardiac enzymes. HISTORY OF PRESENT ILLNESS: This very unfortunate 53-year-old female who was on illicit drugs in the past and also has recently been started smoking and using some crack cocaine, presented to the hospital complaining of some chest discomfort, but she had missed one of her dialysis. She also was volume overloaded. She has undergone dialysis and feeling better, but she still continues to have some chest discomfort when she lies on either her left side or her right side. It is more a chest wall pain. If she is lying on her back, she does not have any discomfort. Her cardiac enzymes most likely are slightly elevated due to her end-stage renal disease with some elevation of her creatinine I believe was up to 13.9 after missing her dialysis. Also, she had some mild temperature elevation and most likely this is the etiology of the abnormal cardiac enzymes. The EKG did not reflect any evidence of ischemia. Given her risk factors for coronary disease, she could have underlying coronary disease and none has been documented in the past. At this time, she is comfortable except when she is lying down and then complains again of discomfort and on my evaluation, this appears to be chest wall discomfort. PAST MEDICAL HISTORY: Significant for end-stage renal disease, on hemodialysis. She has hypertension, depression. She has had AV fistulas placed. She has had a history of congestive heart failure, which most likely is diastolic in nature. She has a history of end-stage renal disease. She has had a uterine ablation in the past. She has been admitted in [place] before due to her depression and drug use. ALLERGIES: SHE IS ALLERGIC TO MORPHINE, PENICILLIN AND HYDRALAZINE. SHE ALSO GIVES SOME HISTORY OF POSSIBLE SEIZURE DISORDER. SHE HAS BIPOLAR DISORDER. SHE IS SCHIZOPHRENIC. SHE HAS ANXIETY. HOME MEDICATION: Should include: 1. Coreg 25 mg b.i.d. 2. Clonidine 0.3 mg b.i.d. 3. Atorvastatin 40 mg daily. 4. Atorvastatin 20 mg daily. 5. Megestrol 40 mg once daily. 6. Oxcarbazepine 150 mg once daily. 7. Nifedipine 60 mg daily. 8. Sensipar 30 mg daily. 9. Renvela 800 mg daily. 10. Bentyl 20 mg one tab every 6 hours p.r.n. as needed. REVIEW OF SYSTEMS: A 12-point review of systems unremarkable with the history of present illness. PHYSICAL EXAMINATION: GENERAL: Reveals a middle-aged female who actually appears older than her stated age. Her blood pressure is now 100/53. She is febrile to 100.2, heart rate is 88, respiratory rate 16, O2 saturation is 97%. HEENT: Shows head to be normocephalic and atraumatic. Carotid pulses are present I did not hear any bruits her chest is actually clear to auscultation. I did not hear any significant rales, rhonchi, or wheezing noted. Her cardio cardiovascular exam reveals a regular rate and rhythm. There were no gross murmurs noted. ABDOMEN: Soft and nontender. Positive bowel sounds are present. She did have chest wall tenderness on palpation. EXTREMITIES: Showed no clubbing, cyanosis, or edema. Pedal pulses were present. NEUROLOGIC: The patient appears to be intact. SKIN: Warm and dry. IMPRESSION: 1. End-stage renal disease on hemodialysis. 2. Hypertension. This will be dealt with by the museum educator. 3. History of anemia, most likely due to chronic disease as well as her renal failure. 4. Slight abnormality of the cardiac enzymes. Most likely this is due to her renal failure, but she does give a history of some chest discomfort, which appears to be chest wall pain. We can schedule her for stress testing to rule out any evidence of underlying ischemia since she does have risk factors for coronary artery disease. She did have an echocardiogram performed, which shows a normal left ventricular systolic function. Ejection fraction was 60% to 65%. There were no other significant abnormalities noted on the echocardiogram. We will schedule her for stress testing to rule out evidence of ischemia. If any ischemia is found, then further evaluation will be indicated. 5. History of illicit drug use. She will be advised obviously to stopping using drugs. 6. History of schizophrenia. She will need to be followed up by [facility]. Job ID: [id number]
[2018-12-30 05:45] LABS: Anion Gap 18 mmol/L (10-20); BUN (Urea Nitrogen) 39 mg/dL (9.8-20.1); Calc. Creatinine Clearance 6 mL/min (70-130); Calcium 9.7 mg/dL (7.8-10.44); Carbon Dioxide 25 mmol/L (22-29); Chloride 101 mmol/L (98-107); Estimated GFR-MDRD 5; Glucose 83 mg/dL (70-105); Sodium 139 mmol/L (136-145)
[2018-12-30 05:51] LABS: Eosinophils 1 % (0-10); Hemoglobin 8.5 g/dL (12.0-16.0); Lymphocytes 29 % (21-51); MDiff Complete? YES; Mean Corpuscular HGB CONC 32.6 g/dL (32.0-36.0); Mean Corpuscular Hemoglobin 28.3 pg (27.0-31.0); Mean Corpuscular Volume 86.7 fL (78.0-98.0); Mean Platelet Volume 8.9 fL (7.4-10.4); Monocytes 13 % (0-10); Neutrophil 57 % (42-75); Ovalocytes SLIGHT = 2-5 cells (100X) (0-1/hpf); Platelet Count 216 thou/uL (130-400); Platelet Morphology Comment Appears Adequate; RBC Distribution Width 15.4 % (11.5-14.5); Red Blood Cell (RBC) Count 2.99 mill/uL (4.20-5.40); Target Cells SLIGHT = 2-5 cells (100X) (0-1/hpf); White Blood Cell (WBC) Count 8.7 thou/uL (4.8-10.8)
--- NOTE | 2018-12-30 06:34 | PDOC.FM ---
- Subjective Subjective: Patient declined dialysis yesterday. Patient reports no problems with breathing. Some chest pain, worse wtih palpation. No nausea, diaphoresis, SOB. - Objective MAR Reviewed: Yes Vital Signs & Weight: Vital Signs (12 hours) Temp Pulse Resp BP BP Pulse Ox 12/30/18 03:42 98.5 F 78 18 110/66 96 12/29/18 23:58 108/66 12/29/18 20:22 100/53 L 12/29/18 19:05 100.2 F H 88 16 100/53 L 97 Weight Weight 69.7 kg I&O: 12/28/18 12/29/18 12/30/18 06:59 06:59 06:59 Intake Total 90 830 Output Total 350 600 Balance -260 230 Result Diagrams: 12/30/18 05:01 12/30/18 05:01 Phys Exam - Physical Examination Constitutional: NAD HEENT: PERRLA, moist MMs Neck: full ROM Respiratory: no wheezing, clear to auscultation bilateral Cardiovascular: RRR, no significant murmur Gastrointestinal: soft, non-tender Musculoskeletal: no edema Neurological: non-focal, moves all 4 limbs Psychiatric: normal affect, A&O x 3 Dx/Plan (1) Sepsis Code(s): A41.9 - SEPSIS, UNSPECIFIED ORGANISM Status: Acute (2) Elevated brain natriuretic peptide (BNP) level Code(s): R79.89 - OTHER SPECIFIED ABNORMAL FINDINGS OF BLOOD CHEMISTRY Status : Acute (3) Hx of cocaine abuse Code(s): Z87.898 - PERSONAL HISTORY OF OTHER SPECIFIED CONDITIONS Status: Acute (4) SIRS (systemic inflammatory response syndrome) Code(s): R65.10 - SIRS OF NON-INFECTIOUS ORIGIN W/O ACUTE ORGAN DYSFUNCTION Status: Acute (5) ESRD (end stage renal disease) on dialysis Code(s): N18.6 - END STAGE RENAL DISEASE; Z99.2 - DEPENDENCE ON RENAL DIALYSIS Status: Chronic (6) HTN (hypertension) Code(s): I10 - ESSENTIAL (PRIMARY) HYPERTENSION Status: Chronic (7) Cocaine abuse Code(s): F14.10 - COCAINE ABUSE, UNCOMPLICATED Status: Acute (8) Volume overload Code(s): E87.70 - FLUID OVERLOAD, UNSPECIFIED Status: Acute (9) UTI (urinary tract infection) Status: Acute - Plan Plan: 53 yo F with PMH ESRD, HTN, HLD presents after missed dialysis with complaint of dyspnea and chest pain. SIRS w/ unknown source - tachycardia, fever 101.6 rectal, WBC 14.7 on admission - s/p vanc, aztreonam in ED (12/28) -procal elevated 1.2, consider poor clearance d/t renal function -likely reactive from cocain use since patient tachycardia has resolved, no true fever since admission -however, continue empiric abx with vanc and cefepime until urine & blood cx finalize Elevated troponoins -Likley related to renal fluid overload, demand ischemia in light of normal EKG , downtrending troponins -chest pain likely MSK -TTE -no diastolic/systolic fx -will r/o ischemic chest pain, NST today Elevated BNP - BNP 3336, significantly more elevated compared to prior - TTE normal -likely attributale to fluid overload from renal disease ESRD on HD MWF - missed dialysis Tuesday - Nephrology consulted from ED, repeat dialysis today to help with breathing - see if can have HD today Hyperkalemia, resolved HTN - Stable - restart home clonidine, nifedipine - hold carvedilol in anticipation of NST Chronic normocytic anemia - Hgb 9, at baseline, 2/2 chronic disease HLD - continue home atorvastatin Depression - continue home sertraline, doxepin - recent history of loss of mother Cocaine abuse - UDS + for amphetamine abuse Ppx: Heparin Diet: renal Dispo: >2 MN Addendum - Attending - Attending Attestation Date/Time: 12/30/18 5998 I personally evaluated the patient and discussed the management with Dr. Aldrich. I agree with the History, Examination, Assessment and Plan documented above with any addition or exceptions noted below. The patient refused dialysis yesterday as she didn't want them to pull fluid off her. This morning she has also refused her stress test. The patient states she doesn't know why we are doing these tests. Both myself and Dr. Aldrich had a discussion regarding the plan yesterday and today but pt states she doesn' t remember any of the conversations. We again re-explained the importance of dialysis to help remove fluid and help with the pleural effusion. Cardiology has also recommended a stress test. Her PCP, Dr. Rishi White, went to speak to her and she is now agreeable to the stress test and dialysis.
[2018-12-30] MEDS ORDERED: Vancomycin HCl 250 MG in Sodium Chloride 0.9% 100 ML IVPB SCH (07:00)
[2018-12-30] MEDS ORDERED: Vancomycin Sliding Scale 1 EACH FS ONE (07:00)
[2018-12-30] MEDS ORDERED: Vancomycin HCl 1 GM in Premix Bag 1 BAG IVPB SCH (07:00)
[2018-12-30] MEDS ORDERED: HOLD VANCOMYCIN FOR LEVEL >20 FS SCH (07:00)
[2018-12-30] MEDS ORDERED: Vancomycin HCl 500 MG in Sodium Chloride 0.9% 100 ML IVPB SCH (07:00)
[2018-12-30] MEDS ORDERED: Vancomycin HCl 750 MG in Sodium Chloride 0.9% 250 ML 250 ML IVPB SCH (07:00)
[2018-12-30] MEDS ORDERED: Clopidogrel Bisulfate 75 MG TAB ONE (07:56)
[2018-12-30] MEDS ORDERED: Vancomycin HCl 1.75 GM in Sodium Chloride 0.9% 500 ML IVPB SCH (08:00)
[2018-12-30 08:42] LABS: HIV (1/2) Antibody/Antigen Non-Reactive (NonReactive)
--- NOTE | 2018-12-30 08:52 | PDOC.CTH ---
Cardiology Progress Note - Subjective The pt seen and examined. No overnight events. No cardiac complaints. She is more alerted today. - Objective Vital Signs Temp Pulse Resp BP Pulse Ox 12/30/18 03:42 98.5 F 78 18 110/66 96 12/29/18 23:58 108/66 Weight 153 lb 10.595 oz 12/29/18 12/30/18 12/31/18 06:59 06:59 06:59 Intake Total 90 830 Output Total 350 600 Balance -260 230 - Physical Examination General/Neuro: alert & oriented x3 Neck: no JVD present Lungs: CTA Heart: RRR Abdomen: soft Extremities: other: (No edema) - Telemetry Telemetry Rhythm: SR - Labs Result Diagrams: 12/30/18 05:01 12/30/18 05:01 Troponin/CKMB CK-MB (CK-2) 0.9 ng/mL (0-6.6) 12/29/18 07:51 Troponin I 0.255 ng/mL (< 0.028) H 12/29/18 07:51 - Assessment/Plan 1. CP - possible musculoskeletal etiology; however, plan for Stress test today for indeterminate trop level and cocaine abuse and chest pain. 2. Elevated BNP 2/2 fluid overload - ESRD with HD; managed by immunohematologist 3. HTN urgency - stable 4. ESRD on HD MWF 5. Anemia - 6. Schizophrenia 7. Illicit drug abuse with Cocaine - cessation education given to the pt MAR reviewed Pt. seen and eval. by me after the stress test. i agree with the above A/P by the CLERK CARRIER. She was nauseated and vomiting. No chest pain. Chest clear. RRR. Stress test is negative for reversible ischemia. gjm Review of Systems - Review of Systems Constitutional: reports: no symptoms reported EENTM: reports: no symptoms reported Respiratory: reports: no symptoms reported Cardiac (ROS): reports: no symptoms reported ABD/GI: reports: no symptoms reported : reports: no symptoms reported Musculoskeletal: reports: no symptoms reported
[2018-12-30 08:55] LABS: Syphilis Antibody Index 13.19 S/CO (<1.00 Non-Reactive)
[2018-12-30 09:18] LABS: Syphilis Antibody INDETERMINATE (Nonreactive)
[2018-12-30] MEDS ORDERED: Vancomycin HCl 1.25 GM in Sodium Chloride 0.9% 250 ML 250 ML IVPB SCH (14:00)
--- NOTE | 2018-12-30 14:09 | PRG ---
DATE OF SERVICE: 12/30/2018 SUBJECTIVE: A 53-year-old female, being seen for end-stage kidney disease. The patient denies any nausea, vomiting, or chest pain. OBJECTIVE: GENERAL: On examination, the patient is awake and alert. VITAL SIGNS: breathing 16, and blood pressure 135/82. GENERAL APPEARANCE AND MENTAL STATUS: Fair. HEAD/NECK: Normocephalic. Atraumatic. EYES: EOMI. No deformity. EARS: Clear. No ulcers. NOSE: Intact. No lesions. MOUTH: Clear. No discharge. THROAT: Clear. No exudate. LUNGS: Clear. No crackles. CARDIAC: S1, S2. No rub. ABDOMEN: Benign. Bowel sounds positive. GENITALIA/RECTUM: Hernandez absent. BACK/EXTREMITIES: Edema 0+. NEUROLOGICAL: Alert and motor intact. SKIN: LYMPHATICS: LABORATORY DATA: Reviewed. ASSESSMENT: 1. chronic kidney disease, plan dialysis tomorrow. 2. Hypertension, stable. 3. Anemia, stable. 4. Medication based on GFR appropriate. Job ID: [id number]
[2018-12-30] MEDS: cloNIDine 0.3 MG TAB PO SCH ×2 (14:29→20:51)
[2018-12-30] MEDS: Heparin 5,000 UNITS/ML VIAL SC SCH ×3 (14:31→20:51)
[2018-12-30] MEDS: Cefepime 2 GM in Sodium Chloride 0.9% 100 ML IVPB SCH ×2 (14:31→20:48)
[2018-12-30] MEDS ORDERED: Regadenoson 0.4 MG/5 ML SYRINGE ONE (16:46)
--- NOTE | 2018-12-30 17:24 | NM ---
Nuclear medicine myocardial perfusion scan: 12/30/2018 COMPARISON: None HISTORY: Chest pain, history of hypertension and abnormal cholesterol levels TECHNIQUE: SPECT imaging of the left ventricular myocardium obtained during stress and rest following the intravenous administration of 30 and 9mCi technetium 99 M labeled sestamibi respectively. FINDINGS: No discrete fixed or reversible defect. TID is 0.89. Left ventricular wall motion appears within normal limits. End-diastolic volume is 87 mL and end systolic volume is 38 mL. Left ventricular ejection fraction is estimated at 57%. IMPRESSION: No discrete reversible defect. Normal left ventricular wall motion. Estimated LVEF of 57%.
[2018-12-30] MEDS: ALPRAZolam 1 MG TAB PO PRN (20:51)
[2018-12-30] MEDS: Doxepin HCl 25 MG CAP PO SCH (20:52)
[2018-12-31 05:20] LABS: #Eosinphils 0.2 thou/uL (0.0-0.7); #Monocytes 0.5 thou/uL (0.11-0.59); #Neutrophils 3.8 thou/uL (1.40-6.50); %Basophils 0.6 % (0.0-1.0); %Lymphocytes 39.8 % (21.0-51.0); %Monocytes 6.2 % (0.0-10.0); %Neutrophils 50.4 % (42.0-75.0); Hemoglobin 8.9 g/dL (12.0-16.0); Mean Corpuscular Hemoglobin 28.9 pg (27.0-31.0); Mean Corpuscular Volume 87.5 fL (78.0-98.0); Mean Platelet Volume 8.3 fL (7.4-10.4); Platelet Count 223 thou/uL (130-400); RBC Distribution Width 15.1 % (11.5-14.5); Red Blood Cell (RBC) Count 3.09 mill/uL (4.20-5.40); White Blood Cell (WBC) Count 7.6 thou/uL (4.8-10.8)
[2018-12-31 05:37] LABS: Anion Gap 15 mmol/L (10-20); BUN (Urea Nitrogen) 55 mg/dL (9.8-20.1); Calc. Creatinine Clearance 6 mL/min (70-130); Calcium 10.3 mg/dL (7.8-10.44); Carbon Dioxide 25 mmol/L (22-29); Chloride 105 mmol/L (98-107); Estimated GFR-MDRD 4; Glucose 87 mg/dL (70-105); Potassium 5.3 mmol/L (3.5-5.1); Sodium 140 mmol/L (136-145)
[2018-12-31] MEDS ORDERED: Dicyclomine 20 MG TAB PO PRN (06:36)
--- NOTE | 2018-12-31 06:36 | PDOC.FM ---
- Subjective Subjective: NAEO. Denies breathing issues. Denies chest pain. Discussed cocaine cessation, patient agrees to stop. - Objective MAR Reviewed: Yes Vital Signs & Weight: Vital Signs (12 hours) Temp Pulse Resp BP BP Pulse Ox 12/31/18 03:25 97.3 F L 66 18 157/91 H 99 12/30/18 20:51 134/65 12/30/18 19:47 99.5 F 78 16 134/65 100 12/30/18 19:45 100 Weight Weight 69.7 kg I&O: 12/29/18 12/30/18 12/31/18 06:59 06:59 06:59 Intake Total 90 830 400 Output Total 000 895 0993 Balance -260 230 -600 Result Diagrams: 12/31/18 04:52 12/31/18 04:52 Phys Exam - Physical Examination Constitutional: NAD HEENT: PERRLA, moist MMs Neck: no nodes, full ROM Respiratory: no wheezing, clear to auscultation bilateral Cardiovascular: RRR, no significant murmur Gastrointestinal: soft, non-tender Neurological: non-focal, moves all 4 limbs Dx/Plan (1) Sepsis Code(s): A41.9 - SEPSIS, UNSPECIFIED ORGANISM Status: Acute (2) Elevated brain natriuretic peptide (BNP) level Code(s): R79.89 - OTHER SPECIFIED ABNORMAL FINDINGS OF BLOOD CHEMISTRY Status : Acute (3) Hx of cocaine abuse Code(s): Z87.898 - PERSONAL HISTORY OF OTHER SPECIFIED CONDITIONS Status: Acute (4) SIRS (systemic inflammatory response syndrome) Code(s): R65.10 - SIRS OF NON-INFECTIOUS ORIGIN W/O ACUTE ORGAN DYSFUNCTION Status: Acute (5) ESRD (end stage renal disease) on dialysis Code(s): N18.6 - END STAGE RENAL DISEASE; Z99.2 - DEPENDENCE ON RENAL DIALYSIS Status: Chronic (6) HTN (hypertension) Code(s): I10 - ESSENTIAL (PRIMARY) HYPERTENSION Status: Chronic (7) Cocaine abuse Code(s): F14.10 - COCAINE ABUSE, UNCOMPLICATED Status: Acute (8) Volume overload Code(s): E87.70 - FLUID OVERLOAD, UNSPECIFIED Status: Acute (9) UTI (urinary tract infection) Status: Acute - Plan Plan: 53 yo F with PMH ESRD, HTN, HLD presents after missed dialysis with complaint of dyspnea and chest pain. SIRS w/ unknown source - tachycardia, fever 101.6 rectal, WBC 14.7 on admission - s/p vanc, aztreonam in ED (12/28) -procal elevated 1.2, consider poor clearance d/t renal function -No true fever since admission, no WBC for 48 hours, tachycardia resolved -urine & blood cx negative, will d/c abx. All likely reactive from cocaine use in light of normal NST as well Elevated troponoins -Likley related to renal fluid overload, demand ischemia in light of normal EKG , downtrending troponins -chest pain likely MSK -TTE -no diastolic/systolic fx -NST with no signs of reversible ischemia -likely reactive from cocaine use, will dependency counselor on cessation Hyperkalemia -5.3 -HD today Elevated BNP - BNP 3336, significantly more elevated compared to prior - TTE normal -likely attributale to fluid overload from renal disease ESRD on HD MWF - missed dialysis Tuesday - refused HD two days ago - Cr worsening 10-> 11 - HD today Hyperkalemia, resolved HTN - Stable - restart home clonidine, nifedipine - hold carvedilol in anticipation of NST Chronic normocytic anemia - Hgb 9, at baseline, 2/2 chronic disease HLD - continue home atorvastatin Depression - continue home sertraline, doxepin - recent history of loss of mother Cocaine abuse - UDS + for amphetamine abuse -spiritual care Ppx: Heparin Diet: renal Dispo: >2 MN, d/c today after dialysis Addendum - Attending - Attending Attestation Date/Time: 12/31/18 1479 I personally evaluated the patient and discussed the management with Dr. Aldrich. I agree with the History, Examination, Assessment and Plan documented above with any addition or exceptions noted below. The patient's stress test is negative. She has no signs of infection. Plan for dialysis today. Dr. Aldrich was able to discuss cocaine cessation and prayed with the patient. She may be able to d/c after dialysis.
[2018-12-31 07:44] LABS: Vancomycin, Trough 41.2 ug/mL
[2018-12-31] MEDS: cloNIDine 0.3 MG TAB PO SCH (08:33)
[2018-12-31] MEDS: Heparin 5,000 UNITS/ML VIAL SC SCH ×2 (08:34→18:02)
[2018-12-31] MEDS ORDERED: Folic Acid/Vit B Comp W-C PO SCH (09:00)
[2018-12-31] MEDS ORDERED: Atorvastatin Calcium 20 MG TAB PO SCH (09:00)
[2018-12-31] MEDS: Cefepime 2 GM in Sodium Chloride 0.9% 100 ML IVPB SCH (09:36)
[2018-12-31] MEDS: ALPRAZolam 1 MG TAB PO PRN (11:40)
--- NOTE | 2018-12-31 12:58 | PRG ---
DATE OF SERVICE: 12/31/2018 SUBJECTIVE: A 53-year-old female being seen end-stage renal disease. The patient denies any nausea, vomiting, or chest pain. OBJECTIVE: GENERAL: On examination, the patient is awake and alert. VITAL SIGNS: pulse 100, breathing 16, and blood pressure GENERAL APPEARANCE AND MENTAL STATUS: Fair. HEAD/NECK: Normocephalic. Atraumatic. EYES: EOMI. No deformity. EARS: Clear. No ulcers. NOSE: Intact. No lesions. MOUTH: Clear. No discharge. THROAT: Clear. No exudate. LUNGS: Clear. No crackles. CARDIAC: S1, S2. No rub. ABDOMEN: Benign. Bowel sounds positive. GENITALIA/RECTUM: Hernandez absent. BACK/EXTREMITIES: Edema 0+. NEUROLOGICAL: Alert and motor intact. SKIN: LYMPHATICS: LABORATORY DATA: Reviewed. ASSESSMENT AND PLAN: 1. Stage 6 chronic kidney disease, plan dialysis. 2. Hyperkalemia, plan dialysis. 3. Anemia, stable. 4. Medication based on GFR appropriate. Job ID: [id number]
--- NOTE | 2018-12-31 14:02 | PDOC.CTH ---
Cardiology Progress Note - Subjective The pt seen and examined. No overnight events. No cardiac complaints. - Objective Vital Signs Temp Pulse Resp BP BP Pulse Ox 12/31/18 08:33 138/73 12/31/18 07:32 100 12/31/18 07:00 98.0 F 77 16 138/73 100 12/31/18 03:25 97.3 F L 66 18 157/91 H 99 Weight 153 lb 10.595 oz 12/30/18 12/31/18 01/01/19 06:59 06:59 06:59 Intake Total 830 400 Output Total 600 1000 Balance 230 -600 - Physical Examination General/Neuro: alert & oriented x3 Neck: no JVD present Lungs: CTA Heart: RRR Abdomen: soft Extremities: other: (No edema) - Telemetry Telemetry Rhythm: SR - Labs Result Diagrams: 12/31/18 04:52 12/31/18 04:52 Troponin/CKMB CK-MB (CK-2) 0.9 ng/mL (0-6.6) 12/29/18 07:51 Troponin I 0.255 ng/mL (< 0.028) H 12/29/18 07:51 - Assessment/Plan 1. CP - possible musculoskeletal etiology; Stress test showed no ischemia; 2. Elevated BNP 2/2 fluid overload - ESRD with HD; managed by psychiatry adult physician 3. HTN urgency - stable 4. ESRD on HD MWF 5. Anemia - 6. Schizophrenia 7. Illicit drug abuse with Cocaine - cessation education given to the pt MAR reviewed * From Cardiac standpoint, the pt is stable to d/c home. Review of Systems - Review of Systems Constitutional: reports: no symptoms reported EENTM: reports: no symptoms reported Respiratory: reports: no symptoms reported Cardiac (ROS): reports: no symptoms reported ABD/GI: reports: no symptoms reported : reports: no symptoms reported Musculoskeletal: reports: no symptoms reported
[2018-12-31 17:48] VITALS: BP 138/88; TEMP 98.6
[2018-12-31] MEDS ORDERED: NIFEDIPINE 60 MG PO SCH (21:00)
[2018-12-31] MEDS ORDERED: NIFEdipine XL 60 MG TAB PO SCH (21:00)
--- NOTE | 2019-01-01 01:44 | DIS ---
DATE OF ADMISSION: 12/28/2018 DATE OF DISCHARGE: 12/31/2018 ADMITTING ATTENDING: Mauricio Sol MD DISCHARGE ATTENDING: Libby Phillips MD RESIDENT: Melva Aldrich MD, PGY-1. CONSULTS: 1. Cardiology, Dr. Payne. 2. Nephrology, Dr. Dunbar. PROCEDURES: 1. Hemodialysis. 2. Nuclear stress test: No discrete fixed or reversible defect, essentially normal. Ejection fraction of 57%. 3. Transthoracic echocardiogram: Ejection fraction 60% to 65%. Trace mitral regurgitation. Mild tricuspid regurgitation. Normal left atrium and right ventricle. PRIMARY DIAGNOSES: 1. Systemic inflammatory response syndrome criteria, likely secondary to cocaine abuse. 2. End-stage renal disease on Tuesday, Tuesday, Tuesday hemodialysis. 3. Hyperkalemia. 4. Elevated BNP. 5. Cocaine abuse. SECONDARY DIAGNOSES: 1. Hypertension. 2. Chronic normocytic anemia. 3. Hyperlipidemia. 4. Depression. DISCHARGE MEDICATIONS: 1. Bentyl 20 mg p.o. q.i.d. p.r.n. 2. Zoloft 50 mg p.o. daily. Discharge medications at home: 1. Carvedilol 25 mg p.o. b.i.d. 2. Xanax 2 mg p.o. b.i.d. 3. Clonidine 0.3 mg p.o. b.i.d. 4. Phenergan 25 mg p.o. b.i.d. p.r.n. for nausea. 5. Atorvastatin 20 mg p.o. daily. 6. Folic acid. 7. Nifedipine 60 mg p.o. at bedtime. DISCONTINUED MEDICATIONS: None. HOSPITAL COURSE: Ms. Dionne Recinos is a 53-year-old female with ESRD on hemodialysis, who presented to the ER for difficulty breathing and chest tightness after missing hemodialysis. Had an O2 saturation of 88% and elevated BPs in the ER, all likely due to fluid overload.Chest x-ray was pertinent for CHF with pulmonary edema and pleuraleffusions. Dr. Dunbar was consulted, who agreed for dialysis to help with fluid overload. SIRS: In addition patient met SIRS criteria with tachypnea, tachycardia and WBC of 13. The patient was admitted for SIRS with unknown source and started on empiric abx. UDS was positive for cocaine abuse. Over the course of the next couple days, cultures resulted negative. Patient initial SIRS presentation likely reactive to her cocaine abuse in light of negative infectious workup. ELEVATED TROPONIN & BNP: In absence of chest pain. Nuclear stress test was negative for signs of reversible ischemia. The patient' s transthoracic echo was normal with no signs of congestive heart failure. Elevated troponins likely 2/2 demand ischemia from fluid overload or cocaine abuse. DEPRESSION & ANXIETY: The patient was also started on Zoloft. Interested in counseling outpatient. INDETERMINATE RPR: RPR checked d/t pt hx of drug abuse. Ratio 1:1. Patient denies prior hx of syphilis or risky sexual behavior. Currently re-treponemal antibodies are pending. Discussed results, pt agrees for f/u outpt testing. DISPOSITION: Stable. DISCHARGE INSTRUCTIONS: 1. Location: Home. 2. Diet: Heart healthy, renal diet. 3. Activity: As tolerated. 4. Followup: Please follow up with PCP, Dr. Rishi White at [facility] , within 3 to 5 days. 5. Consider repeat testing of RPR to rule out syphilis. 6. Consider continuation of Zoloft and titrate as needed. 7. Consider counseling if the patient was interested in this option to explore new coping mechanisms. 8. Please follow up with Dr. Dunbar. Continue with hemodialysis. Job ID: [id number] [facility]ALTHPeter
--- NOTE | 2019-01-01 08:28 | CON ---
DATE OF CONSULTATION: PRIMARY CARE DOCTOR: Dr. Mendiola, [facility]. FOUNDATION DIRECTOR: Dr. Gasca. PRIMARY CLINICAL EDUCATION SPECIALIST: Dr. Nadine Payne. REFERRING DOCTOR: Dr. Melva Aldrich REASON FOR CARDIOLOGY CONSULT: Elevated troponin. HISTORY OF PRESENT ILLNESS: Ms. Recinos is a 53-year-old female with a significant history of end-stage renal disease with hemodialysis on Tuesday, Tuesday, and Tuesday; hypertension; hyperlipidemia; and depression. On 12/06, the patient's mother and since then, she was really depressed. So, the patient decided to use the cocaine yesterday. Then, the patient felt blood pressure high and the patient's blood pressure is more than 200 at home. The patient decided to present to the emergency department for further evaluation and treatment. The patient also complained of the pressure-like chest pain, the pain to the epigastric area continuously since yesterday. The pain at the site will increase with deep breath, movement, and palpitate to the site. The patient denied any other cardiac complaints such as chest pain, heaviness, tightness at any other chest area, shortness of breath, dizziness, lightheadedness, nausea, vomiting, or any other cardiac complaints. She sometimes skips hemodialysis, just she does not want to go. Actually, she skipped last Tuesday, and the patient is supposed to have hemodialysis on . However, due to the hypertension urgency and pain to the epigastric area, the patient presented to the emergency department instead of having the hemodialysis. She has not seen any handkerchief folder before or had a cardiac workup before; however, she had echocardiogram in 2015, showed EF of 60% to 65% and trace to mild tricuspid insufficiency. Echocardiogram was done today, which showed EF of 60% to 65%, normal right ventricular size and function, [id number] mitral valve regurgitation, and mild tricuspid regurgitation. The patient's chest x-ray shows mild cardiomegaly, and there is evidence of small effusion but which has improved since yesterday. The patient had emergency hemodialysis last night, and the creatinine coming down from 14. Also prior to the hemodialysis, the patient's potassium level was 5.5, now it is 3.5 after hemodialysis. PAST MEDICAL HISTORY: 1. Hypertension. 2. Hyperlipidemia. 3. End-stage renal disease with hemodialysis on Tuesday, Tuesday, and Tuesday. 4. Depression. PAST SURGICAL HISTORY: 1. Left knee surgery. 2. Left arm AV graft. 3. Uterine ablation. FAMILY HISTORY: The patient's mother had a medical history of diabetes, hypertension, and kidney failure. The patient has two brothers and one sister, who do not have any medical history. SOCIAL HISTORY: She is single. She has 3 children, who live well. No congenital heart or kidney problems. She denied any EtOH or tobacco abuse. She has a history of illicit drug abuse with cocaine long time ago, but she had not used it for little while till yesterday. She is on the disability due to hemodialysis. REVIEW OF SYSTEMS: A 12-point review of systems is negative unless otherwise mentioned in the HPI. ALLERGIES: SHE IS ALLERGIC TO PENICILLIN, MORPHINE, AND HYDRALAZINE, WHICH MADE HER BLOOD PRESSURE TOO LOW. MEDICATIONS: 1. Carvedilol 25 mg twice a day. 2. Xanax 2 mg p.o. twice a day as needed. 3. Clonidine 0.3 mg b.i.d. 4. Phenergan 25 mg twice a day as needed. 5. Bentyl 20 mg 4 times a day as needed. 6. Atorvastatin 20 mg once a day. 7. Folic acid/vitamin B complex one tablet daily. 8. Nifedipine 60 mg at night. PHYSICAL EXAMINATION: VITAL SIGNS: Blood pressure is 100/51, temperature 99.3, pulse is 97 and sinus rhythm, respiratory rate 18, and O2 saturation 95% on room air. GENERAL: The patient is alert and oriented x4, in no acute distress; however, she is mildly lethargic this afternoon. HEENT: Normocephalic, atraumatic. Eyes, extraocular muscle movement intact. ENT and mouth, oral and nasal mucosa moist without lesion. NECK: Normal range of motion. Supple. No JVD. RESPIRATORY: Clear to auscultate bilaterally. No rales, rhonchi, or wheezing noted. CARDIOVASCULAR: Regular rate and rhythm. Normal S1 and S2. There is no S3 or S4. No significant murmur, hives, or thrill noted. 2+ pulses in the bilateral upper and lower extremities. No edema in the lower extremities. Carotid pulses are present without bruit or thrill. ABDOMEN: Soft, nontender. No mass to palpate except increased discomfort with palpation to the epigastric area. Bowel sounds are present. SKIN: Warm and dry. No lesion, rash, or erythema noticed. MUSCULOSKELETAL: The patient able to move all extremities without difficulty. The patient denied claudication. NEUROLOGIC: The patient is alert and oriented x4, nonfocal. PSYCHIATRIC: The patient's mood is appropriate, just the patient is mildly lethargic. LABORATORY DATA: WBC 13.0, hemoglobin 9.0, hematocrit 26.9, and platelets 248. Sodium 140, potassium 3.5 from 5.5 yesterday, BUN 27, creatinine 5.88 and was almost 14 last night, glucose 106, calcium9.9, AST 16, ALT 11, and CK-MB 0.9. Troponin 0.020, 0.276, and 0.255. DIAGNOSTIC DATA: Chest x-ray shows mild cardiomegaly and probable small bilateral pleural effusion. 12-lead EKG at the ER shows sinus tach with no ST-segment change or T-wave inversion. ASSESSMENT AND PLAN: 1. Elevated troponin level, possibly due to hypertension urgency. Her systolic blood pressure was up to 200 and possible fluid overload from skipping dialysis last Tuesday. The patient's 12-lead EKG did not show any ST-segment change or T-wave inversion. The patient denied any cardiac-related symptoms except the pain and discomfort to the epigastric area, which is a possible musculoskeletal etiology because the symptom became worse with palpation and movement. We would like to continue to monitor on the telemetry at this moment. 2. Elevated BNP, which is possibly due to the fluid overload since the patient has skipped hemodialysis. The patient's systolic function is stable. We would like to continue to monitor. 3. Hypertension urgency secondary to cocaine abuse. The patient's blood pressure is stable at this moment with current medication. The patient's clonidine 0.3 mg was decreased from three times a day to two times a day. We would like to continue current blood pressure medication and we will adjust as appropriate. 4. End-stage renal disease. Already, Dr. Dunbar consulted this patient and the patient already had an emergency hemodialysis last night. 5. Depression. She is on Zoloft or any other medication as needed, which is managed by primary care doctor. Thank you very much for allowing the Cardiology Service to participate in the care of this patient. We will follow along the patient's care team and make further recommendations as appropriate. Job ID: [id number]
== END 2018-12-31 18:25 | disposition home or self-care (01) | DRG 871 ==
LOC: ERS 18:11 → 2NO 22:04
PROVIDERS: ADMIT Family Medicine; ATTEND Family Medicine
PROC: B246ZZZ Ultrasonography of Right and Left Heart (ICD-10-PCS; principal; 2018-12-29)
PROC: 5A1D70Z Performance of Urinary Filtration, Intermittent, Less than 6 Hours Per Day (ICD-10-PCS; 2018-12-31)
DX: A41.9 Sepsis, unspecified organism (principal); N18.6 End stage renal disease; N39.0 Urinary tract infection, site not specified; I13.2 Hypertensive heart and chronic kidney disease with heart failure and with stage 5 chronic kidney disease, or end stage renal disease; I50.32 Chronic diastolic (congestive) heart failure; Z99.2 Dependence on renal dialysis; E87.5 Hyperkalemia; I25.10 Atherosclerotic heart disease of native coronary artery without angina pectoris; F14.10 Cocaine abuse, uncomplicated; Z91.15 Patient's noncompliance with renal dialysis; D63.1 Anemia in chronic kidney disease; E78.00 Pure hypercholesterolemia, unspecified; F32.9 Major depressive disorder, single episode, unspecified; I16.0 Hypertensive urgency; I08.1 Rheumatic disorders of both mitral and tricuspid valves; F31.9 Bipolar disorder, unspecified; F20.9 Schizophrenia, unspecified; F41.9 Anxiety disorder, unspecified; R79.89 Other specified abnormal findings of blood chemistry
CPT/HCPCS: 36415; 36416; 71045; 78452; 80048; 80053; 80202; 80306; 81001; 82553; 83036; 83605; 83880; 84145; 84484; 85025; 86593; 86780; 87040; 87086; 87340; 87389; 93005; 93017; 93306; 96374; A9500; J0692; J1644; J2405; J2785; J3370; J3490; J7050

== ENCOUNTER 2019-02-12 07:14 | Observation (INO) | payer MEDICARE, MEDICAID ==
[2019-02-12 07:51] LABS: #Basophils 0.1 thou/uL (0.0-0.2); #Eosinphils 0.1 thou/uL (0.0-0.7); #Lymphocytes 1.8 thou/uL (1.20-3.40); #Monocytes 0.4 thou/uL (0.11-0.59); #Neutrophils 6.2 thou/uL (1.40-6.50); %Eosinophils 1.6 % (0.0-10.0); %Lymphocytes 21.2 % (21.0-51.0); %Monocytes 4.8 % (0.0-10.0); %Neutrophils 71.4 % (42.0-75.0); Mean Corpuscular HGB CONC 32.3 g/dL (32.0-36.0); Mean Corpuscular Hemoglobin 28.9 pg (27.0-31.0); Mean Corpuscular Volume 89.4 fL (78.0-98.0); Mean Platelet Volume 8.2 fL (7.4-10.4); Platelet Count 245 thou/uL (130-400); RBC Distribution Width 16.2 % (11.5-14.5); White Blood Cell (WBC) Count 8.7 thou/uL (4.8-10.8)
--- NOTE | 2019-02-12 08:01 | RAD ---
Chest one view HISTORY: Dyspnea. COMPARISON: 12/29/2018. FINDINGS: Cardiac silhouette is magnified, enlarged, partially obscured by left pleural fluid and low er lobe consolidation that are similar in appearance to the previous exam. Pulmonary vasculature is more engorged with patchy bilateral perihilar infiltrates. Mediastinum is mi dline. No evidence of pneumothorax. skip pitman leads overlie the chest. Vascular stent over the left brachial vessels. IMPRESSION: Pulmonary edema is greater than on the most recent chest radiograph. Left lower lobe consolidation and left pleural fluid are otherwise stable.
[2019-02-12 08:12] LABS: ALT (SGPT) 35 U/L (8-55); AST (SGOT) 27 U/L (5-34); Albumin 4.1 g/dL (3.5-5.0); Alkaline Phosphatase 49 U/L (40-150); Anion Gap 19 mmol/L (10-20); BUN (Urea Nitrogen) 49 mg/dL (9.8-20.1); Bilirubin, Total 0.6 mg/dL (0.2-1.2); Calc. Creatinine Clearance 0 mL/min (70-130); Calcium 11.1 mg/dL (7.8-10.44); Carbon Dioxide 21 mmol/L (22-29); Chloride 107 mmol/L (98-107); Estimated GFR-MDRD 4; Globulin 2.9 g/dL (2.4-3.5); Glucose 88 mg/dL (70-105); Potassium 4.8 mmol/L (3.5-5.1); Sodium 142 mmol/L (136-145)
[2019-02-12 08:36] LABS: CKMB 1.1 ng/mL (0-6.6)
[2019-02-12] MEDS ORDERED: Aspirin Chewable 81 MG TAB ONE (08:59)
--- NOTE | 2019-02-12 09:00 | PDOC.FPRHP ---
- History of Present Illness Chief Complaint: SOB History of Present Illness: This is a 53 yo F w/ a PMH of ESRD on dialysis MFW coming to the ED with a CC of SOB. She states symptoms started around 0500 this AM. She states that the SOB was associated with a dry cough but no chest pain. She states that has not had any fever, NV, abdominal pain or any other symptoms prior to this morning. Patient is a dialysis patient, last dialysis was on Tuesday and has appointment for dialysis this morning. She has not missed any appointments for dialysis lately. She has ESRD due to HTN. Patient also reports increased anxiety lately. Her mother in November and since then has had a dispute with family over her mothers house. Yesterday, she had the police called on her due to this issue. She thinks her SOB could be related to this anxiety. ED Course: ASA - Allergies/Adverse Reactions Allergies Allergy/AdvReac Type Severity Reaction Status Date / Time hydralazine Allergy Unknown Unverified 02/12/19 11:50 Penicillins Allergy Verified 02/12/19 11:16 morphine AdvReac Verified 02/12/19 11:16 - Home Medications Medication Instructions Recorded Confirmed Type Carvedilol 25 mg PO BID 10/25/16 02/12/19 History ALPRAZolam [Xanax] 2 mg PO TID PRN 07/21/17 02/12/19 History cloNIDine [Catapres] 0.3 mg PO BID 04/19/18 02/12/19 History Folic Acid/Vit B Complex and C 1 tab PO DAILY 12/29/18 02/12/19 History [Alexia-Danitza] NIFEdipine [Adalat cc] 60 mg PO HS 12/29/18 02/12/19 History Acetaminophen [Tylenol Regular 650 mg PO Q4H PRN tab 12/31/18 02/12/19 Rx Strength] Dicyclomine [Bentyl] 20 mg PO QID PRN tab 12/31/18 02/12/19 Rx Sertraline HCl [Zoloft] 50 mg PO DAILY #30 tab 12/31/18 02/12/19 Rx Amitriptyline HCl [Elavil] 25 mg PO HS 02/12/19 02/12/19 History Sevelamer Carbonate [Renvela] 1 tab PO BID- 02/12/19 02/12/19 History Sevelamer Carbonate [Renvela] 2 tab PO TID-WM 02/12/19 02/12/19 History - History PMHx: HTN, HLD PSHx: Ablation, Knee surgery FHx: Mom-CKD Social: denies smoking, alcohol use or drug use - Review of Systems General: denies: fever/chills, weight/appetite/sleep changes, night sweats, fatigue Eyes: denies: vision changes ENT: denies: nasal congestion, rhinorrhea Respiratory: reports: shortness of breath, exercise intolerance. denies: cough , congestion Cardiovascular: reports: paroxysmal nocturnal dyspnea, orthopnea. denies: chest pain, palpitation, edema Gastrointestinal: reports: constipation. denies: nausea, vomiting, diarrhea, abdominal pain Genitourinary: denies: dysuria Skin: denies: rashes, lesions Musculoskeletal: denies: pain, stiffness, swelling Neurological: denies: seizure, weakness Psychological: reports: anxiety, depression - Vital signs BP: 216/144, Pulse: 99, Resp: 27, Temp: 98.2 (Oral), Pain: 0, O2 sat: 95 on Room Air, Time: 02/12/2019 07:20. Weight: 71.21kg BP: 163/104, Pulse: 77, Resp: 20, O2 sat: 99 on Room Air, Time: 02/12/2019 08:44. - Physical Exam Constitutional: NAD, awake, alert and oriented HEENT: normocephalic and atraumatic, PERRLA, EOMI, MMM, good dention Neck: supple, FROM Heart: RRR Lungs: CTAB, no respiratory distress Abdomen: soft, non-tender Musculoskeletal: ROM grossly normal Neurological: no focal deficit Skin: no rash/lesions, good turgor, capillary refill <2 seconds Psychiatric: normal mood and affect FMR H&P: Results - Labs Result Diagrams: 02/12/19 07:43 02/12/19 07:43 Lab results: WBC 8.7 thou/uL (4.8-10.8) 02/12/19 07:43 Hgb 9.0 g/dL (12.0-16.0) L 02/12/19 07:43 Hct 27.7 % (36.0-47.0) L 02/12/19 07:43 MCV 89.4 fL (78.0-98.0) 02/12/19 07:43 Plt Count 245 thou/uL (130-400) 02/12/19 07:43 Neutrophils % 71.4 % (42.0-75.0) 02/12/19 07:43 Sodium 142 mmol/L (136-145) 02/12/19 07:43 Potassium 4.8 mmol/L (3.5-5.1) 02/12/19 07:43 Chloride 107 mmol/L (98-107) 02/12/19 07:43 Carbon Dioxide 21 mmol/L (22-29) L 02/12/19 07:43 BUN 49 mg/dL (9.8-20.1) H 02/12/19 07:43 Creatinine 11.25 mg/dL (0.6-1.1) H 02/12/19 07:43 Glucose 88 mg/dL (70-105) 02/12/19 07:43 Calcium 11.1 mg/dL (7.8-10.44) H 02/12/19 07:43 Total Bilirubin 0.6 mg/dL (0.2-1.2) 02/12/19 07:43 AST 27 U/L (5-34) 02/12/19 07:43 ALT 35 U/L (8-55) 02/12/19 07:43 Alkaline Phosphatase 49 U/L (40-150) 02/12/19 07:43 CK-MB (CK-2) 1.1 ng/mL (0-6.6) 02/12/19 07:43 B-Natriuretic Peptide 1989.1 pg/mL (0-100) H 02/12/19 07:43 Serum Total Protein 7.0 g/dL (6.0-8.3) 02/12/19 07:43 Albumin 4.1 g/dL (3.5-5.0) 02/12/19 07:43 - Radiology Interpretation Chest x-ray Status: report reviewed by me (greater pulm edema than prior CXR) FMR H&P: A/P - Problem List (1) Dialysis AV fistula malfunction Current Visit: No Status: Acute Code(s): T82.590A - [facility] COMPL OF SURGICALLY CREATED ARTERIOVENOUS FISTULA, INIT (2) Elevated brain natriuretic peptide (BNP) level Current Visit: No Status: Acute Code(s): R79.89 - OTHER SPECIFIED ABNORMAL FINDINGS OF BLOOD CHEMISTRY (3) Hx of cocaine abuse Current Visit: No Status: Acute Code(s): Z87.898 - PERSONAL HISTORY OF OTHER SPECIFIED CONDITIONS (4) Volume overload Current Visit: No Status: Acute Code(s): E87.70 - FLUID OVERLOAD, UNSPECIFIED (5) ESRD (end stage renal disease) on dialysis Current Visit: No Status: Chronic Code(s): N18.6 - END STAGE RENAL DISEASE; Z99.2 - DEPENDENCE ON RENAL DIALYSIS (6) HLD (hyperlipidemia) Current Visit: No Status: Chronic Code(s): E78.5 - HYPERLIPIDEMIA, UNSPECIFIED (7) HTN (hypertension) Current Visit: No Status: Chronic Code(s): I10 - ESSENTIAL (PRIMARY) HYPERTENSION - Plan 53 yo F with PMH ESRD, HTN, HLD presents c/o SOB, due for dialysis. SOB 2/2 fluid overload; hx of ESRD on dialysis - due for dialysis this AM. Gets dialysis MWF. - CXR showing pulm edema greater than previous CXR - Nephro - Dr. Gasca consulted from the ED. Plan for HD. New T wave inversions - no chest pain, will continue to monitor - K and other electrolytes wnl - Will likely resolve w/ HD. Elevated Troponins - Trop 0.05, will trend Elevated BNP - BNP 1988, improved from previous visit - CXR showed pulm edema worse than previous CXR HTN - BP 160s/104, will likely improve with dialysis - restart home carvedilol, clonidine, nifedipine Chronic normocytic anemia - Hgb 9, at baseline, 2/2 chronic disease HLD - continue home atorvastatin Depression - continue home sertraline, doxepin - recent history of loss of mother Cocaine abuse - UDS pending, unsure if makes urine Ppx: Heparin Diet: renal Dispo: admit to telemetry obs. Plan to get HD. Possibly dc later today if EKG and symptoms improve. Addendum - Attending - Attending Attestation Date/Time: 02/12/19 1231 I personally evaluated the patient and discussed the management with Dr. Roque I agree with the History, Examination, Assessment and Plan documented above with any addition or exceptions noted below. 53 yo hypertensive patient with ESRD with fluid overload c/o dyspnea and dry cough CXR with pulmonary congestive changes. Patient denies Chest pain Note EKG with inverted T waves of questionable significance. Patient to be placed observation for HD this AM trend, troponins and repeat EKG post dialysis. Patient with psychosocial stressors related to Mother and partial home ownership of Mothers prior home.
[2019-02-12] MEDS ORDERED: Ondansetron PF 4 MG/2 ML Vial IVP PRN (09:38)
[2019-02-12] MEDS ORDERED: Ondansetron ODT 4 MG TAB PO PRN (09:38)
[2019-02-12] MEDS ORDERED: Acetaminophen 650 MG Suppository PR PRN (09:38)
[2019-02-12 11:25] VITALS: BMI 29.4
[2019-02-12 12:04] LABS: Troponin I 0.033 ng/mL (< 0.028)
[2019-02-12 13:48] LABS: Troponin I 0.034 ng/mL (< 0.028)
[2019-02-12] MEDS: Acetaminophen 325 MG TAB PO PRN ×2 (13:48→23:57)
[2019-02-12 13:49] LABS: HBSAg Index 0.35 S/CO (0-0.99); Hep B Surf Ag Non-Reactive S/CO (NonReactive)
[2019-02-12] MEDS ORDERED: Acetaminophen 325 MG TAB PO PRN (14:16)
[2019-02-12] MEDS ORDERED: Labetalol HCl 100 MG/20 ML VIAL SLOW IVP PRN (14:53)
[2019-02-12] MEDS ORDERED: ALPRAZolam 0.25 MG TAB PO PRN (14:54)
[2019-02-12] MEDS: diphenhydrAMINE 50 MG CAP PO PRN ×2 (15:06→21:37)
--- NOTE | 2019-02-12 15:39 | CON ---
DATE OF CONSULTATION: REASON FOR CONSULTATION: End-stage kidney disease on maintenance hemodialysis. HISTORY OF PRESENT ILLNESS: This is a 53-year-old female with history of noncompliance and missing dialysis, presented to the hospital today for shortness of breath. The patient dialyzes on Tuesday, Tuesday, and Tuesday. PAST MEDICAL HISTORY: Hypertension, hyperlipidemia, ablation, knee surgery, tunneled dialysis catheter, and AV fistula. SOCIAL HISTORY: No alcohol or drug use. FAMILY HISTORY: Negative for ESRD. ALLERGIES: REVIEWED. HOME MEDICATION: List reviewed. HOSPITAL MEDICATION: List reviewed. PHYSICAL EXAMINATION: CONSTITUTIONAL: The patient is awake and alert. VITAL SIGNS: Afebrile, pulse 75, breathing 16, and blood pressure 216/144. GENERAL APPEARANCE AND MENTAL STATUS: Fair. HEAD/NECK: Normocephalic. Atraumatic. EYES: EOMI. No deformity. EARS: Clear. No ulcers. NOSE: Intact. No lesions. MOUTH: Clear. No discharge. THROAT: Clear. No exudate. LUNGS: Clear. No crackles. CARDIAC: S1, S2. No rub. ABDOMEN: Benign. Bowel sounds positive. GENITALIA/RECTUM: Hernandez absent. BACK/EXTREMITIES: Edema 0+. NEUROLOGICAL: Alert and motor intact. SKIN: LYMPHATICS: LABORATORY DATA: Reviewed. ASSESSMENT AND PLAN: 1. Stage 6 chronic kidney disease, plan dialysis. 2. Pulmonary edema, plan dialysis. 3. Hypertension, stable. 4. Anemia, stable. 5. Medication based on GFR appropriate. Noncompliance is the major issue. Job ID: [id number]
[2019-02-12] MEDS ORDERED: Labetalol HCl 100 MG/20 ML VIAL SLOW IVP SCH (16:30)
[2019-02-12 16:42] LABS: Amphetamine Not Detected (NotDetected); Barbiturates Screen Not Detected (NotDetected); Benzodiazepine Screen Detected (NotDetected); Cocaine Metabolite Screen Not Detected (NotDetected); Medtox Control Line Valid? VALID (VALID); Medtox Reader # READER 4; Methadone Not Detected (NotDetected); Methamphetamine Not Detected (NotDetected); Opiate Screen Not Detected (NotDetected); Oxycodone Screen Not Detected (NotDetected); Phencyclidine (PCP) Not Detected (NotDetected); THC/Cannabinoid Screen Not Detected (NotDetected); Tricyclic Screen Not Detected (NotDetected)
[2019-02-12] MEDS ORDERED: Dicyclomine 20 MG TAB PO PRN (17:00)
[2019-02-12] MEDS: Sevelamer Carbonate 800 MG TAB PO SCH ×2 (17:06)
[2019-02-12] MEDS: Carvedilol 25 MG TAB PO SCH (19:42)
[2019-02-12] MEDS: cloNIDine 0.3 MG TAB PO SCH (19:43)
[2019-02-12] MEDS ORDERED: Amitriptyline HCl 25 MG TAB PO SCH (21:00)
[2019-02-12] MEDS ORDERED: ALPRAZolam 1 MG TAB PO PRN (21:00)
[2019-02-12] MEDS ORDERED: NIFEdipine XL 60 MG TAB PO SCH (21:00)
[2019-02-13] MEDS ORDERED: traMADol HCl 50 MG TAB PO PRN (02:05)
[2019-02-13 05:30] LABS: #Basophils 0.1 thou/uL (0.0-0.2); #Eosinphils 0.2 thou/uL (0.0-0.7); #Monocytes 0.5 thou/uL (0.11-0.59); #Neutrophils 4.8 thou/uL (1.40-6.50); %Basophils 0.9 % (0.0-1.0); %Eosinophils 2.4 % (0.0-10.0); %Lymphocytes 26.4 % (21.0-51.0); %Monocytes 6.1 % (0.0-10.0); %Neutrophils 64.2 % (42.0-75.0); Hemoglobin 8.6 g/dL (12.0-16.0); Mean Corpuscular HGB CONC 31.3 g/dL (32.0-36.0); Mean Corpuscular Hemoglobin 28.4 pg (27.0-31.0); Mean Platelet Volume 8.5 fL (7.4-10.4); Platelet Count 254 thou/uL (130-400); RBC Distribution Width 16.3 % (11.5-14.5); Red Blood Cell (RBC) Count 3.01 mill/uL (4.20-5.40); White Blood Cell (WBC) Count 7.4 thou/uL (4.8-10.8)
[2019-02-13 05:46] LABS: Anion Gap 17 mmol/L (10-20); BUN (Urea Nitrogen) 28 mg/dL (9.8-20.1); Calc. Creatinine Clearance 11 mL/min (70-130); Carbon Dioxide 22 mmol/L (22-29); Chloride 104 mmol/L (98-107); Estimated GFR-MDRD 7; Glucose 77 mg/dL (70-105); Sodium 138 mmol/L (136-145)
--- NOTE | 2019-02-13 06:52 | PDOC.FM ---
- Subjective Subjective: NAEO. Patient resting comfortably in bed. Patient states she feels much better. SOB resolved with dialysis. Denies any chest pain or palpitations. Her headache has also improved. She states she took nifedipine last night which gives her a headache and usually resolves on its own. She states her headache is at the back of her head. No vision changes, no NV. Patient states she feels ready to go home today. - Objective MAR Reviewed: Yes Vital Signs & Weight: Vital Signs (12 hours) Temp Pulse Resp BP Pulse Ox 02/13/19 02:26 98.3 F 89 18 122/87 94 L 02/12/19 23:57 88 18 164/96 H 94 L 02/12/19 21:25 89 20 96 02/12/19 19:43 88 167/85 H 02/12/19 19:40 98.4 F 88 18 167/85 H 96 Weight Weight 75.296 kg I&O: 02/11/19 02/12/19 02/13/19 06:59 06:59 06:59 Intake Total 1044 Output Total 240 Balance 804 Result Diagrams: 02/13/19 04:35 02/13/19 04:35 Phys Exam - Physical Examination Constitutional: NAD HEENT: PERRLA, moist MMs Neck: supple, full ROM Respiratory: no wheezing, no rales, no rhonchi, clear to auscultation bilateral Cardiovascular: RRR, no significant murmur Gastrointestinal: soft, non-tender, no distention, positive bowel sounds Musculoskeletal: no edema, pulses present Neurological: non-focal, moves all 4 limbs Psychiatric: normal affect, A&O x 3 Skin: no rash, normal turgor, cap refill <2 seconds Dx/Plan (1) Dialysis AV fistula malfunction Code(s): T82.590A - [facility] COMPL OF SURGICALLY CREATED ARTERIOVENOUS FISTULA, INIT Status: Acute (2) Elevated brain natriuretic peptide (BNP) level Code(s): R79.89 - OTHER SPECIFIED ABNORMAL FINDINGS OF BLOOD CHEMISTRY Status : Acute (3) Hx of cocaine abuse Code(s): Z87.898 - PERSONAL HISTORY OF OTHER SPECIFIED CONDITIONS Status: Acute (4) Volume overload Code(s): E87.70 - FLUID OVERLOAD, UNSPECIFIED Status: Acute (5) ESRD (end stage renal disease) on dialysis Code(s): N18.6 - END STAGE RENAL DISEASE; Z99.2 - DEPENDENCE ON RENAL DIALYSIS Status: Chronic (6) HLD (hyperlipidemia) Code(s): E78.5 - HYPERLIPIDEMIA, UNSPECIFIED Status: Chronic (7) HTN (hypertension) Code(s): I10 - ESSENTIAL (PRIMARY) HYPERTENSION Status: Chronic - Plan Plan: 53 yo F with PMH ESRD, HTN, HLD presents c/o SOB, due for dialysis. SOB 2/2 fluid overload; hx of ESRD on dialysis Gets dialysis MWF. - CXR showing pulm edema greater than previous CXR - Nephro - Dr. Gasca consulted from the ED. S/p HD yesterday. Patient symptoms improved. New T wave inversions - no chest pain, will continue to monitor - K and other electrolytes wnl - T waves still present on EKG after dialysis. Patient w/ no chest pain. Patient had normal stress and echo in December 2018. Will need to follow up with cardiology outpatient. Elevated Troponins - Trops downtrended Elevated BNP - BNP 1988, improved from previous visit - CXR showed pulm edema worse than previous CXR HTN - BP 160s/104, will likely improve with dialysis - restart home carvedilol, clonidine. Will add amlodipine. Patient states nifedipine gives her a headache. Chronic normocytic anemia - Hgb 9, at baseline, 2/2 chronic disease HLD - continue home atorvastatin Depression - continue home sertraline, doxepin - recent history of loss of mother Cocaine abuse - UDS pending, negative for cocaine or other illicit drugs Ppx: Heparin Diet: renal Dispo: dc later today as symptoms have resolved. Addendum - Attending - Attending Attestation Date/Time: 02/13/19 1050 I personally evaluated the patient and discussed the management with Dr. Roque I agree with the History, Examination, Assessment and Plan documented above with any addition or exceptions noted below. Patient feeling better no dyspnea s/p dialysis. Blood pressure not well controlled patient c/o hydralazine lowered to much and gave her a headache in the past. Started on Amlodipine this am. EKG LVH with strain pattern recent echo and prior stress test negative recommend outpt f/u with Cardiology she will need continued BP monitoring and adjustment of medication to titrate to more acceptable level.
[2019-02-13 08:16] VITALS: BP 137/90; TEMP 98
[2019-02-13] MEDS: Sevelamer Carbonate 800 MG TAB PO SCH ×2 (08:55)
[2019-02-13] MEDS: cloNIDine 0.3 MG TAB PO SCH (08:56)
[2019-02-13] MEDS: Carvedilol 25 MG TAB PO SCH (08:56)
[2019-02-13] MEDS ORDERED: Amlodipine 5 MG TAB PO SCH (09:00)
[2019-02-13] MEDS ORDERED: Folic Acid/Vit B Comp W-C PO SCH (09:00)
[2019-02-13] MEDS ORDERED: Enoxaparin Sodium 40 MG/0.4 ML SYRINGE SC SCH (09:00)
--- NOTE | 2019-02-13 11:24 | PRG ---
DATE OF SERVICE: 02/13/2019 SUBJECTIVE: This is a 53-year-old female being seen for end-stage renal disease. The patient denied any nausea, vomiting, or chest pain. OBJECTIVE: CONSTITUTIONAL: The patient is awake and alert. VITAL SIGNS: Afebrile, pulse 86, breathing 16, blood pressure 137/90. GENERAL APPEARANCE AND MENTAL STATUS: Fair. HEAD/NECK: Normocephalic. Atraumatic. EYES: EOMI. No deformity. EARS: Clear. No ulcers. NOSE: Intact. No lesions. MOUTH: Clear. No discharge. THROAT: Clear. No exudate. LUNGS: Clear. No crackles. CARDIAC: S1, S2. No rub. ABDOMEN: Benign. Bowel sounds positive. GENITALIA/RECTUM: Hernandez absent. BACK/EXTREMITIES: Edema 0+. NEUROLOGICAL: Alert and motor intact. SKIN: LYMPHATICS: LABORATORY DATA: Labs reviewed. ASSESSMENT AND PLAN: 1. Stage 6 chronic kidney disease, plan dialysis tomorrow. 2. Hypertensive, stable. 3. Anemia, stable. 4. Medication based on GFR appropriate. Job ID: [id number]
--- NOTE | 2019-02-14 09:48 | DIS ---
DATE OF ADMISSION: 02/12/2019 DATE OF DISCHARGE: 02/13/2019 RESIDENT: Diana Roque MD ADMITTING ATTENDING: Libby Phillips MD DISCHARGE ATTENDING: Arik Perrin MD CONSULTS: Nephrology, Dr. Conley. PROCEDURES: Dialysis. PRIMARY DIAGNOSIS: Shortness of breath secondary to fluid overload with history of end-stage renal disease, on dialysis, T-wave inversion. SECONDARY DIAGNOSES: Hypertension, chronic normocytic anemia, hyperlipidemia, depression, history of cocaine abuse. DISCHARGE MEDICATIONS: 1. Amlodipine 5 mg oral daily. 2. Carvedilol 25 mg oral twice daily. 3. Xanax 2 mg oral 3 times daily as needed. 4. Catapres 0.3 mg oral twice daily. 5. Folic acid/vitamin-B complex one tab oral daily. 6. Tylenol regular strength 650 mg oral every 4 hours as needed. 7. Bentyl 20 mg oral 4 times daily as needed. 8. Zoloft 50 mg oral daily. 9. Renvela 3 tablets oral two times daily as needed. 10. Amitriptyline 25 mg oral at bedtime. DISCONTINUED MEDICATIONS: Nifedipine. HISTORY OF PRESENT ILLNESS/HOSPITAL COURSE: This is a 53-year-old female with past medical history of end-stage renal disease on dialysis, who came to the ER with a chief complaint of shortness of breath. The patient states that starting earlier that morning, she became suddenly short of breath and woke her up from sleep. She states that her shortness of breath is associated with dry cough. She denies any chest pain, fever, nausea, vomiting, abdominal pain, or any other symptoms. The patient is a dialysis patient on Tuesday, Tuesday, Tuesday, and last dialysis was on Tuesday. The patient reports that she is due for dialysis this morning at 10. She has not missed any appointments lately for dialysis. The patient has end-stage renal disease due to hypertension. The patient also endorsed extreme anxiety due to family issue. The patient was admitted for dialysis. 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 Gasca, was consulted by ED. The patient's chest x-ray showed pulmonary edema that was greater than a previous chest x-ray. The patient was also found to have new T-wave inversions on the EKG. The patient had no chest pain. Troponins were negative. Electrolytes were all within normal limits as well. The patient had an elevated BNP of 1988, but this has improved from her previous visit. The patient had blood pressures in the 160s/104. Amlodipine was added onto the patient's regimen as she was not taking her nifedipine at home due to side effect of headache. The patient was discharged in stable condition with much improvement in her shortness of breath. DISPOSITION: Stable. DISCHARGE INSTRUCTIONS: 1. Location: Home. 2. Diet: Consistent carbohydrate. 3. Activity: Ad-yasemin. 4. Followup: Follow up with PCP; [facility], Dr. Roque, within 7 days; and Dr. Payne within 2 to 3 weeks. Job ID: [id number]
--- NOTE | 2019-02-17 17:04 | EKG ---
Test Reason : SOB Blood Pressure : / mmHG Vent. Rate : 080 BPM Atrial Rate : 080 BPM P-R Int : 192 ms QRS Dur : 088 ms QT Int : 440 ms P-R-T Axes : 025 008 -14 degrees QTc Int : 507 ms Normal sinus rhythm Left ventricular hypertrophy with repolarization abnormality Prolonged QT Abnormal ECG New T wave inversion V4-V6 Confirmed by CONENR HERRERA DO ([id number]), editor newspaper LORENZO GARZA ([id number]) on 02/17/2019 5:04:23 PM Referred By: AMARI FOX Confirmed By:CONNER HERRERA DO
== END 2019-02-13 10:27 | disposition home or self-care (01) ==
LOC: ERS 07:14 → 2SW 08:51
PROVIDERS: ADMIT Family Medicine; ATTEND Family Medicine
DX: E87.70 Fluid overload, unspecified (principal); R06.02 Shortness of breath; I12.0 Hypertensive chronic kidney disease with stage 5 chronic kidney disease or end stage renal disease; N18.6 End stage renal disease; E78.5 Hyperlipidemia, unspecified; F41.9 Anxiety disorder, unspecified; F32.9 Major depressive disorder, single episode, unspecified; R79.89 Other specified abnormal findings of blood chemistry; J81.1 Chronic pulmonary edema; Z79.899 Other long term (current) drug therapy; Z88.0 Allergy status to penicillin; Z88.5 Allergy status to narcotic agent; Z99.2 Dependence on renal dialysis
CPT/HCPCS: 71045; 80048; 80053; 80306; 82553; 83880; 84484 ×2; 85025 ×2; 87340; 93005 ×2; 94640; 96374; G0378 ×2; 36415; 93010; J1650; J7620; Q0153

== ENCOUNTER 2019-04-08 22:44 | Inpatient (IN) | payer MEDICARE, MEDICAID ==
--- NOTE | 2019-04-08 23:34 | RAD ---
XR Chest 1 View Portable History: Dyspnea Comparison: Radiograph January 2019 Findings: Heart size mildly enlarged. Mild pulmonary venous congestion and early edema. Small effusio ns. No acute osseous abnormality. Impression: Findings of early congestive heart failure.
[2019-04-08 23:41] LABS: #Basophils 0.1 thou/uL (0.0-0.2); #Eosinphils 0.2 thou/uL (0.0-0.7); #Lymphocytes 2.2 thou/uL (1.20-3.40); #Monocytes 0.4 thou/uL (0.11-0.59); #Neutrophils 8.1 thou/uL (1.40-6.50); %Basophils 0.8 % (0.0-1.0); %Eosinophils 1.5 % (0.0-10.0); %Lymphocytes 19.7 % (21.0-51.0); %Monocytes 3.8 % (0.0-10.0); %Neutrophils 74.1 % (42.0-75.0); Mean Corpuscular HGB CONC 32.1 g/dL (32.0-36.0); Mean Corpuscular Volume 90.2 fL (78.0-98.0); Mean Platelet Volume 8.2 fL (7.4-10.4); Platelet Count 253 thou/uL (130-400); RBC Distribution Width 17.3 % (11.5-14.5); Red Blood Cell (RBC) Count 3.44 mill/uL (4.20-5.40); White Blood Cell (WBC) Count 10.9 thou/uL (4.8-10.8)
[2019-04-08 23:55] LABS: ALT (SGPT) 18 U/L (8-55); AST (SGOT) 18 U/L (5-34); Albumin 3.9 g/dL (3.5-5.0); Alkaline Phosphatase 44 U/L (40-150); Anion Gap 16 mmol/L (10-20); BUN (Urea Nitrogen) 41 mg/dL (9.8-20.1); Bilirubin, Total 0.4 mg/dL (0.2-1.2); CK (CPK) 87 U/L (29-168); Calc. Creatinine Clearance 0 mL/min (70-130); Calcium 9.9 mg/dL (7.8-10.44); Carbon Dioxide 20 mmol/L (22-29); Chloride 108 mmol/L (98-107); Estimated GFR-MDRD 4; Globulin 3.2 g/dL (2.4-3.5); Glucose 96 mg/dL (70-105); Lipase 29 U/L (8-78); Protein, Total 7.1 g/dL (6.0-8.3); Sodium 137 mmol/L (136-145)
[2019-04-08 23:58] LABS: CKMB 0.8 ng/mL (0-6.6)
[2019-04-09] MEDS ORDERED: Calcium Chloride 1 GM/10 ML Abboject SYRINGE ONE (00:55)
[2019-04-09 01:41] LABS: HBSAg Index 0.37 S/CO (0-0.99); Hep B Surf Ag Non-Reactive S/CO (NonReactive)
--- NOTE | 2019-04-09 03:42 | PDOC.FPRHP ---
- History of Present Illness Chief Complaint: abdominal fullness History of Present Illness: Patient is a 53F with PMHx of ESRD on MWF dialysis, HTN, HLD that presented to the ED because of abdominal fullness that began this morning and lasted all day. Patient was very somnolent throughout evaluation and difficult to converse with. Reports that her abdomen felt full, but denies feeling any abdominal pain. Reports diarrhea since yesterday and vomiting 1x today. Also endorses SOB , but denies cp. Patient gets dialysis MWF, last session this past Tuesday with next today 04/09. Has been getting dialysis for 3 years, has dialysis shunt on left extremity. ED Course: Potassium of 7.0 Calcium chloride, D5W, 10u novolin, 1 amp sodium bicarb, 30g SPS PO Nephrology Dr. Gasca consulted, called in store demonstrator dialysis team for immediate dialysis - Allergies/Adverse Reactions Allergies Allergy/AdvReac Type Severity Reaction Status Date / Time hydralazine Allergy Unknown Verified 04/09/19 04:18 Penicillins Allergy Verified 04/09/19 04:18 morphine AdvReac Verified 04/09/19 04:18 - Home Medications Medication Instructions Recorded Confirmed Type Carvedilol 25 mg PO BID 10/25/16 04/09/19 History ALPRAZolam [Xanax] 2 mg PO TID PRN 07/21/17 04/09/19 History cloNIDine [Catapres] 0.3 mg PO BID 04/19/18 04/09/19 History Acetaminophen [Tylenol Regular 650 mg PO Q4H PRN tab 12/31/18 04/09/19 Rx Strength] Dicyclomine [Bentyl] 20 mg PO QID PRN tab 12/31/18 04/09/19 Rx Sertraline HCl [Zoloft] 50 mg PO DAILY #30 tab 12/31/18 04/09/19 Rx Amitriptyline HCl [Elavil] 25 mg PO HS 02/12/19 04/09/19 History Amlodipine [Norvasc] 10 mg PO DAILY 04/09/19 04/09/19 History - History PMHx:ESRD with MWF dialysis, HTN, HLD, questionable seizures per ER report, extensive psych history PSHx: L knee, uterine ablation, left extremity dialysis shunt FHx: non-contributory Social: no smoking, alcohol, drugs - Review of Systems ROS unobtainable: other (limited by somnolent nature of patient during encounter ) Respiratory: reports: shortness of breath. denies: cough Cardiovascular: denies: chest pain, edema Gastrointestinal: reports: vomiting, diarrhea Genitourinary: denies: incontinence, dysuria Musculoskeletal: denies: pain Psychological: reports: anxiety, depression - Vital signs BP: [149/103] HR: [82] RR: [16] Tmax: [98.8] Pox: [97]% on [RA] - Physical Exam Constitutional: other (somnolent) HEENT: normocephalic and atraumatic, grossly normal hearing Neck: supple, trachea midline Chest: no-tender to palpation, no lesions Heart: RRR, normal S1/S2 Lungs: CTAB, no respiratory distress Abdomen: soft, non-tender, bowel sounds present Musculoskeletal: normal structure, normal tone Skin: good turgor, capillary refill <2 seconds Heme/Lymphatic: no unusual bruising or bleeding Psychiatric: other (difficult to assess) FMR H&P: Results - Labs Result Diagrams: 04/09/19 05:48 04/09/19 05:48 Lab results: WBC 10.9 thou/uL (4.8-10.8) H 04/08/19 23:26 Hgb 10.0 g/dL (12.0-16.0) L 04/08/19 23:26 Hct 31.0 % (36.0-47.0) L 04/08/19 23:26 MCV 90.2 fL (78.0-98.0) 04/08/19 23:26 Plt Count 253 thou/uL (130-400) 04/08/19 23:26 Neutrophils % 74.1 % (42.0-75.0) 04/08/19 23:26 Sodium 137 mmol/L (136-145) 04/08/19 23:26 Potassium 7.0 mmol/L (3.5-5.1) H* 04/08/19 23:26 Chloride 108 mmol/L (98-107) H 04/08/19 23:26 Carbon Dioxide 20 mmol/L (22-29) L 04/08/19 23:26 BUN 41 mg/dL (9.8-20.1) H 04/08/19 23:26 Creatinine 11.30 mg/dL (0.6-1.1) H 04/08/19 23:26 Glucose 96 mg/dL (70-105) 04/08/19 23:26 Calcium 9.9 mg/dL (7.8-10.44) 04/08/19 23:26 Total Bilirubin 0.4 mg/dL (0.2-1.2) 04/08/19 23:26 AST 18 U/L (5-34) 04/08/19 23:26 ALT 18 U/L (8-55) 04/08/19 23:26 Alkaline Phosphatase 44 U/L (40-150) 04/08/19 23:26 Creatine Kinase 87 U/L (29-168) 04/08/19 23:26 CK-MB (CK-2) 0.8 ng/mL (0-6.6) 04/08/19 23:26 B-Natriuretic Peptide 1685.1 pg/mL (0-100) H 04/08/19 23:26 Serum Total Protein 7.1 g/dL (6.0-8.3) 04/08/19 23:26 Albumin 3.9 g/dL (3.5-5.0) 04/08/19 23:26 Lipase 29 U/L (8-78) 04/08/19 23:26 - EKG Interpretation EKG: Normal sinus rhythm. No peaked T-waves - Radiology Interpretation Chest x-ray Status: report reviewed by me (Early CHF: mild heart enlargement, pulmonary venous congestion, small effusions) FMR H&P: A/P - Problem List (1) Hyperkalemia Current Visit: No Status: Acute Code(s): E87.5 - HYPERKALEMIA (2) Depression Current Visit: No Status: Chronic Code(s): F32.9 - MAJOR DEPRESSIVE DISORDER , SINGLE EPISODE, UNSPECIFIED (3) ESRD (end stage renal disease) on dialysis Current Visit: No Status: Chronic Code(s): N18.6 - END STAGE RENAL DISEASE; Z99.2 - DEPENDENCE ON RENAL DIALYSIS (4) HLD (hyperlipidemia) Current Visit: No Status: Chronic Code(s): E78.5 - HYPERLIPIDEMIA, UNSPECIFIED (5) HTN (hypertension) Current Visit: No Status: Chronic Code(s): I10 - ESSENTIAL (PRIMARY) HYPERTENSION (6) Elevated brain natriuretic peptide (BNP) level Current Visit: Yes Status: Acute Code(s): R79.89 - OTHER SPECIFIED ABNORMAL FINDINGS OF BLOOD CHEMISTRY (7) Elevated brain natriuretic peptide (BNP) level Current Visit: No Status: Acute Code(s): R79.89 - OTHER SPECIFIED ABNORMAL FINDINGS OF BLOOD CHEMISTRY - Plan 53F with ESRD on MWF dialysis admitted for dialysis for hyperkalemia #Hyperkalemia likely 2/2 ESRD -patient gets MWF dialysis, last session Tuesday -Potassium 7.0 on admission -Dr. Gasca consulted, and night dialysis team consulted -patient received calcium chloride, D5W with 10u novolin, 1 amp sodium bicarb, and 30g SPS PO -patient to immediate dialysis -will continue to monitor electrolytes #Elevated BNP -BNP 5, down from 1988 in January 2019 -likely 2/2 volume overload #HTN -149/103 in ER on exam -continue home meds #HLD -chronic -continue home meds #Depression -chronic -continue home meds DVT Proph: Heparin Diet: Renal diet GI proph: pepcid Code status: full code Dispo: inpatient for dialysis and electrolyte monitoring FMR H&P: Upper Level - Plan Date/Time: 04/09/19 0340 I, Salvatore Crisostomo MD, have evaluated this patient and agree with findings/plan as outlined by international trade specialist resident. Pertinent changes/additions are listed here. Dionne Recinos is a 53 year old F with a PMH of ESRD on MWF HD (Tribal Council Member is Dr. Gasca), HTN, HLD, Depression who presented to the ED with a couple day history of weakness and a one day history of abdominal swelling. Patient states that she got her normally schedule HD on Tuesday, without complication. She denies any fever, chills, chest pain, dyspnea, n/v. Patient is a poor historian. She was somnolent upon attaining H&P. On admission, patient had a potassium of 7.0. Dr. Gasca was consulted from the ED and recommended immediate hemodialysis. EKG in ER showed NSR with no T wave changes. Patient was given calcium chloride, 10 U novolin and D5W, 1 amp NaHCO3, and 30 g SPS. Patient admitted to inpatient tele for hyperkalemia. Plan for patient to undergo hemodialysis upon leaving ER. Will continue to monitor labs closely. Patient has a history of HTN and depression/anxiety, will continue home medications. Anticipate discharge from hospital in < 48 hours and close follow up with PCP. Agree with plan and full H&P written by international trade specialist above. Addendum - Attending - Attending Attestation Date/Time: 04/09/19 3297 I personally evaluated the patient and discussed the management with Dr. Ascencio/ Kranthi. I agree with the History, Examination, Assessment and Plan documented above with any addition or exceptions noted below. Patient here with abdominal pain and evidence of volume overload and hyperkalemia. She underwent emergent HD overnight and nephrology has been consulted. She is also fairly sedate and we will hold her psychotropic meds for now and evaluate for improvement. Anticipate she may need HD again tomorrow but await further recs from Nephrology.
[2019-04-09] MEDS ORDERED: Acetaminophen 325 MG TAB PO PRN (04:29)
[2019-04-09] MEDS ORDERED: Dicyclomine 20 MG TAB PO PRN (04:29)
[2019-04-09] MEDS ORDERED: ALPRAZolam 1 MG TAB PO SCH ×2 (04:45→22:16)
[2019-04-09] MEDS ORDERED: diphenhydrAMINE 25 MG CAP PO PRN (05:24)
[2019-04-09 05:37] VITALS: BMI 28.3
[2019-04-09 06:23] LABS: #Basophils 0.1 thou/uL (0.0-0.2); #Eosinphils 0.2 thou/uL (0.0-0.7); #Lymphocytes 1.9 thou/uL (1.20-3.40); #Monocytes 0.8 thou/uL (0.11-0.59); #Neutrophils 7.7 thou/uL (1.40-6.50); %Basophils 0.7 % (0.0-1.0); %Eosinophils 1.7 % (0.0-10.0); %Lymphocytes 17.5 % (21.0-51.0); %Monocytes 7.3 % (0.0-10.0); %Neutrophils 72.9 % (42.0-75.0); Hemoglobin 10.3 g/dL (12.0-16.0); Mean Corpuscular HGB CONC 31.7 g/dL (32.0-36.0); Mean Corpuscular Hemoglobin 28.1 pg (27.0-31.0); Mean Corpuscular Volume 88.5 fL (78.0-98.0); Mean Platelet Volume 8.4 fL (7.4-10.4); Platelet Count 226 thou/uL (130-400); Red Blood Cell (RBC) Count 3.66 mill/uL (4.20-5.40); White Blood Cell (WBC) Count 10.6 thou/uL (4.8-10.8)
[2019-04-09 07:18] LABS: Anion Gap 14 mmol/L (10-20); BUN (Urea Nitrogen) 14 mg/dL (9.8-20.1); Calc. Creatinine Clearance 14 mL/min (70-130); Carbon Dioxide 24 mmol/L (22-29); Chloride 101 mmol/L (98-107); Estimated GFR-MDRD 10; Potassium 4.4 mmol/L (3.5-5.1); Sodium 135 mmol/L (136-145)
[2019-04-09 07:19] LABS: Calcium 10.2 mg/dL (7.8-10.44); Glucose 105 mg/dL (70-105)
[2019-04-09] MEDS ORDERED: Thiamine HCl 200 MG/2 ML VIAL IM SCH (08:15)
[2019-04-09] MEDS: Famotidine 20 MG TAB PO SCH (08:55)
[2019-04-09] MEDS: cloNIDine 0.3 MG TAB PO SCH ×2 (08:55→21:12)
[2019-04-09] MEDS: Carvedilol 25 MG TAB PO SCH ×2 (08:55→21:13)
[2019-04-09] MEDS: Amlodipine 10 MG TAB PO SCH (08:55)
[2019-04-09] MEDS: Heparin 5,000 UNITS/ML VIAL SC SCH ×3 (08:58→21:13)
[2019-04-09] MEDS: Folic Acid 1 MG TAB PO SCH (08:58)
[2019-04-09] MEDS: Multivitamin W/ Minerals 1 TAB PO SCH (08:58)
[2019-04-09] MEDS ORDERED: NIFEdipine XL 60 MG TAB PO SCH (09:00)
--- NOTE | 2019-04-09 14:24 | CON ---
DATE OF CONSULTATION: REASON FOR CONSULTATION: End-stage renal disease. HISTORY OF PRESENT ILLNESS: A 53-year-old female, who presented to the hospital with hyperkalemia. The patient denies any nausea, vomiting, or chest pain. The patient was dialyzed and her potassium has normalized. PAST MEDICAL HISTORY: Significant for end-stage kidney disease, hypertension, anemia, noncompliance, secondary hyperparathyroidism, AV fistula, tunneled dialysis catheter, history of left knee surgery, and uterine ablation. FAMILY HISTORY: Negative for ESRD. SOCIOECONOMIC HISTORY: No alcohol or drug use. REVIEW OF SYSTEMS: A 15-point review of system was performed, negative except for positives noted above. GENERAL: HEAD: NECK: No swelling or lumps. NOSE: No epistaxis or discharge. EYES: No diplopia or pain. 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 NEUROPSYCHIATIC SYSTEMS: No suicidal ideation. No ideation. SKIN: Denies any rash or ulcer. CONSTITUTIONAL: No fever or chills. HOME MEDICATION: List reviewed. HOSPITAL MEDICATIONS: List reviewed. PHYSICAL EXAMINATION: GENERAL: The patient is awake and alert. VITAL SIGNS: Afebrile, pulse 82, breathing 16, blood pressure 149/103. GENERAL APPEARANCE AND MENTAL STATUS: Fair. HEAD/NECK: Normocephalic. Atraumatic. EYES: EOMI. No deformity. EARS: Clear. No ulcers. NOSE: Intact. No lesions. MOUTH: Clear. No discharge. THROAT: Clear. No exudate. LUNGS: Clear. No crackles. CARDIAC: S1, S2. No rub. ABDOMEN: Benign. Bowel sounds positive. GENITALIA/RECTUM: Hernandez absent. BACK/EXTREMITIES: Edema 0+. NEUROLOGICAL: Alert and motor intact. SKIN: LYMPHATICS: LABORATORY DATA: Reviewed. ASSESSMENT: 1. Stage 6 chronic kidney disease, plan dialysis. 2. Hypertension, stable. 3. Anemia, stable. 4. Medication based on GFR appropriate. 5. Hyperkalemia, recommend low-potassium diet. Job ID: [id number]
[2019-04-09] MEDS ORDERED: Amitriptyline HCl 25 MG TAB PO SCH (21:00)
[2019-04-09] MEDS ORDERED: Ondansetron ODT 4 MG TAB PO PRN (21:59)
--- NOTE | 2019-04-10 06:25 | PDOC.FM ---
- Subjective Subjective: Yesterday patient remained somnolent throughout the day. Several of her IMAGER depressing meds were held yesterday and patient slowly became more alert but still not answering questions properly. Continually had to be stimulated to remind patient to answer, appeared to only remain alert for <10 sec periods yesterday. Patient initially told me yesterday that she does not take Xanax and has not since August 2018. However later the night team was called and patient requesting Xanax. Night team was able to determine that the patient has a Xanax prescription by Dr. Gasca, last filled 03/30/19, and she was given 1 dose Xanax 2mg overnight. This morning patient states she feels better. Does complains of some bodywide itching that has been going on for 2 months. When approached about lowering or switching her Xanax to something like Hydoxyzine, patient is adament that she does not want any med changes nor does she want to be placed on any new meds at this time. - Objective MAR Reviewed: Yes Vital Signs & Weight: Vital Signs (12 hours) Temp Pulse Resp BP BP Pulse Ox 04/10/19 03:44 98.5 F 78 18 129/71 96 04/09/19 21:12 128/75 04/09/19 19:40 98.1 F 79 20 122/76 98 Weight Weight 73.663 kg I&O: 04/08/19 04/09/19 04/10/19 06:59 06:59 06:59 Intake Total 600 Output Total 350 Balance 250 Result Diagrams: 04/09/19 05:48 04/10/19 06:43 Phys Exam - Physical Examination Constitutional: NAD HEENT: moist MMs EOMI Neck: no JVD, supple Respiratory: no wheezing, no rhonchi, clear to auscultation bilateral Cardiovascular: RRR, no significant murmur Gastrointestinal: soft, non-tender, positive bowel sounds Musculoskeletal: no edema, pulses present Neurological: normal sensation, moves all 4 limbs Psychiatric: normal affect, A&O x 3 Skin: no rash, normal turgor Dx/Plan (1) Elevated brain natriuretic peptide (BNP) level Code(s): R79.89 - OTHER SPECIFIED ABNORMAL FINDINGS OF BLOOD CHEMISTRY Status : Acute (2) Hyperkalemia Code(s): E87.5 - HYPERKALEMIA Status: Acute (3) Depression Code(s): F32.9 - MAJOR DEPRESSIVE DISORDER, SINGLE EPISODE, UNSPECIFIED Status : Chronic Qualifiers: Depression Type: unspecified Qualified Code(s): F32.9 - Major depressive disorder, single episode, unspecified (4) ESRD (end stage renal disease) on dialysis Code(s): N18.6 - END STAGE RENAL DISEASE; Z99.2 - DEPENDENCE ON RENAL DIALYSIS Status: Chronic (5) HLD (hyperlipidemia) Code(s): E78.5 - HYPERLIPIDEMIA, UNSPECIFIED Status: Chronic Qualifiers: Hyperlipidemia type: unspecified Qualified Code(s): E78.5 - Hyperlipidemia , unspecified (6) HTN (hypertension) Code(s): I10 - ESSENTIAL (PRIMARY) HYPERTENSION Status: Chronic Qualifiers: Hypertension type: secondary to other renal disorders Qualified Code(s): I15.1 - Hypertension secondary to other renal disorders; N28.89 - Other specified disorders of kidney and ureter - Plan Plan: 53F with ESRD on MWF dialysis admitted for dialysis for hyperkalemia 1. Hyperkalemia likely 2/2 ESRD -patient gets MWF dialysis, last session Tuesday. Received night dialysis in early AM 04/09. Will receive another round of dialysis this morning (04/10) and also due for another round of dialysis on Tuesday. Will speak to Dr. Dunbar to see if he wants any further treatment today. -Potassium 7.0 on admission -> 4.4 (04/09), AM labs pending -Dr. Gasca consulted, and night dialysis team consulted. Further recs by Dr. Dunbar yesterday for continued dialysis, continue renal dosing of meds, & low potassium diet. -patient received calcium chloride, D5W with 10u novolin, 1 amp sodium bicarb, and 30g SPS PO in ER -will continue to monitor electrolytes 2. Elevated BNP -BNP 1685, down from 1988 in January 2019 -likely 2/2 volume overload 3. HTN -149/103 in ER on exam, has remained stable <140/90 during stay -continue home meds 4. HLD -chronic -continue home meds 5. Depression -chronic -continue home meds VTE: Heparin Diet: Renal diet with low K GI proph: pepcid Code status: full code Dispo: Stable, admitted to inpatient for dialysis and electrolyte monitoring with anticipated LOS <24 hrs pending another round of dialysis today. Anticipate discharge back to home later this afternoon. Addendum - Attending - Attending Attestation Date/Time: 04/10/19 0699 I personally evaluated the patient and discussed the management with Dr. David. I agree with the History, Examination, Assessment and Plan documented above with any addition or exceptions noted below. Patient overall doing well today and less sedate. She is receiving HD today and likely discharge home with follow up at outpatient HD tomorrow. Will discuss with Nephro to ensure this is acceptable.
[2019-04-10 07:30] LABS: Anion Gap 17 mmol/L (10-20); BUN (Urea Nitrogen) 36 mg/dL (9.8-20.1); Calc. Creatinine Clearance 9 mL/min (70-130); Calcium 9.3 mg/dL (7.8-10.44); Carbon Dioxide 23 mmol/L (22-29); Chloride 105 mmol/L (98-107); Estimated GFR-MDRD 6; Glucose 84 mg/dL (70-105); Potassium 5.5 mmol/L (3.5-5.1); Sodium 139 mmol/L (136-145)
[2019-04-10 08:53] VITALS: BP 124/78; TEMP 99.9
[2019-04-10] MEDS: Multivitamin W/ Minerals 1 TAB PO SCH (08:56)
[2019-04-10] MEDS: Famotidine 20 MG TAB PO SCH (08:56)
[2019-04-10] MEDS: cloNIDine 0.3 MG TAB PO SCH (08:57)
[2019-04-10] MEDS: Carvedilol 25 MG TAB PO SCH (08:57)
[2019-04-10] MEDS: Heparin 5,000 UNITS/ML VIAL SC SCH (08:57)
[2019-04-10] MEDS: Folic Acid 1 MG TAB PO SCH (08:57)
[2019-04-10] MEDS: Amlodipine 10 MG TAB PO SCH (08:57)
[2019-04-10] MEDS ORDERED: Magnesium Oxide 400 MG TAB PO SCH (09:00)
[2019-04-10] MEDS ORDERED: Thiamine 100 MG TAB PO SCH (09:00)
--- NOTE | 2019-04-10 16:06 | PRG ---
DATE OF SERVICE: 04/10/2019 SUBJECTIVE: A 53-year-old female, being seen for end-stage renal disease. The patient denied any nausea, vomiting, or chest pain. OBJECTIVE: GENERAL: The patient is awake and alert. VITAL SIGNS: Afebrile. Pulse 78, breathing 16, blood pressure 129/71. GENERAL APPEARANCE AND MENTAL STATUS: Fair. HEAD/NECK: Normocephalic. Atraumatic. EYES: EOMI. No deformity. EARS: Clear. No ulcers. NOSE: Intact. No lesions. MOUTH: Clear. No discharge. THROAT: Clear. No exudate. LUNGS: Clear. No crackles. CARDIAC: S1, S2. No rub. ABDOMEN: Benign. Bowel sounds positive. GENITALIA/RECTUM: Hernandez absent. BACK/EXTREMITIES: Edema 0+. NEUROLOGICAL: Alert and motor intact. SKIN: LYMPHATICS: LABORATORY DATA: Reviewed. ASSESSMENT AND PLAN: 1. Stage 6 chronic kidney disease, plan dialysis. 2. Hyperkalemia, plan dialysis. 3. Anemia, stable. 4. Medication based on GFR, appropriate. Discussed compliance. Job ID: [id number]
--- NOTE | 2019-04-11 04:53 | DIS ---
DATE OF ADMISSION: 04/09/2019 DATE OF DISCHARGE: 04/10/2019 RESIDENT: Evita David DO ADMITTING ATTENDING: Rm Strickland MD DISCHARGE ATTENDING: Naveed Krueger MD CONSULTS: Nephrology, Dr. Dunbar & Dr. Gasca. PROCEDURES: 1. Emergency dialysis on April 09. 2. Dialysis on April 10. PRIMARY DIAGNOSIS: Hyperkalemia likely secondary to end-stage renal disease. SECONDARY DIAGNOSES: 1. Elevated BNP. 2. Hypertension. 3. Hyperlipidemia. 4. Depression. 5. End-stage renal disease, on dialysis. DISCHARGE MEDICATIONS: 1. Acetaminophen 650 mg p.o. q.4 hours for pain. 2. Xanax 2 mg p.o. t.i.d. for anxiety. 3. Amlodipine 10 mg p.o. daily. 4. Carvedilol 25 mg p.o. b.i.d. 5. Clonidine 0.3 mg p.o. b.i.d. 6. Dicyclomine 20 mg p.o. q.i.d. p.r.n. for constipation. 7. Sertraline 50 mg p.o. daily. DISCONTINUED MEDICATIONS: 1. Magnesium 400 mg p.o. daily. 2. Theragran, iron, multivitamin one tab daily. 3. Zofran 4 mg p.o. q.6 hours p.r.n. for nausea, vomiting. 4. Thiamine 100 mg p.o. daily. 5. Heparin 5000 units subcu t.i.d. HISTORY OF PRESENT ILLNESS/HOSPITAL COURSE: The patient presented to the [facility] on April 09, 2019, because of abdominal fullness that had begun earlier in the morning and lasted all day. The patient was very somnolent throughout her evaluation and difficult to converse with. She reported that her abdomen felt full, but denied feeling any abdominal pain. She also reported diarrhea since yesterday and vomiting one time earlier that day. She also endorsed shortness of breath, but denied chest pain. The patient reports a history of receiving dialysis on Mondays, Wednesdays, and Fridays. Her last session was this past Tuesday with her next on April 09. She has been receiving dialysis for 3 years and has a dialysis shunt currently located on her left upper extremity. In the emergency room, she was noted to have a potassium of 7.0. She was given calcium chloride, D5W, 10 units of Novolin, one amp sodium bicarb, 30 g SPS p.o. Nephrology, Dr. Gasca was consulted and the on-call dialysis team was called for immediate dialysis. After her dialysis, it was determined that the patient would be admitted to the [facility] inpatient service. The plan was to continue her on her home medications and for further electrolyte monitoring. Throughout the morning of April 09, 2019, the patient remained very somnolent and was not alert and less stimulated. When she was stimulated, she remained alert for only 5-10 seconds at a time. She was not responsive to majority of questions. At that time, her home medications of sertraline, amitriptyline, Xanax, and Benadryl were stopped. Throughout the day on April 09, she became more alert. On the morning of April 10, the patient was more responsive. She stated she felt better and did not remember anything from the day prior. She did complain of some body wide itching, but stated this has been going on for 2 months. When she was approached about lowering or switching her Xanax to something like hydroxyzine, the patient remained adamant that she did not want any med changes at this time nor did she want to be placed on any new med at this visit. The patient required another round of dialysis on the morning of April 10. Dr. Dunbar was called in the early afternoon, and he recommended setting the patient up for an outpatient fistulogram for further interrogation of her dialysis port. This appointment was scheduled for April 19 at 7:30 a.m. in the [facility] at the [facility]. On the afternoon of April 10, 2019, the patient was deemed medically stable for discharge back home. The patient was encouraged to keep her dialysis appointment for tomorrow morning and to maintain close followup with her director of anesthesia services, Dr. Gasca. PERTINENT LABS: 1. Labs on April 08: a. CBC; WBC 10.9, hemoglobin 10.0, hematocrit 31.0, platelets 253. b. Troponin 0.011. c. BNP 1685. d. CK-MB 0.8. e. CMP; sodium 137, potassium 7.0, chloride 108, carbon dioxide 20, BUN 41, creatinine 11.3, glucose 96, calcium 9.9, AST 18, ALT 18, alkaline phosphatase 44, CK 87, total protein 7.1, lipase 29. 2. Labs on April 09: a. Hep B antigen nonreactive. b. CBC; WBC 10.6, hemoglobin 10.3, hematocrit 32.4, platelets 226. c. BMP; sodium 135, potassium 4.4, chloride 101, carbon dioxide 24, BUN 14, creatinine 5.34, glucose 105, calcium 10.2. d. Ammonia 28. 3. Labs on April 10: a. BMP; sodium 139, potassium 5.5, chloride 105, carbon dioxide 23, BUN 36, creatinine 8.13, glucose 84, calcium 9.3. PROCEDURES: Chest x-ray: Findings of early congestive heart failure. DISPOSITION: Stable. DISCHARGE INSTRUCTIONS: 1. Location: Home. 2. Diet: Low potassium, renal diet. 3. Activity: As tolerated. 4. Followup: Follow up with Dr. Gasca in 7 days and with YANA (PCP) in 14 days. Job ID: [id number] MTDD
== END 2019-04-10 14:56 | disposition home or self-care (01) | DRG 640 ==
LOC: ERS 22:44 → 2NO 04-09 01:16
PROVIDERS: ADMIT Family Medicine; ATTEND Family Medicine
DX: E87.5 Hyperkalemia (principal); N18.6 End stage renal disease; I12.0 Hypertensive chronic kidney disease with stage 5 chronic kidney disease or end stage renal disease; N25.81 Secondary hyperparathyroidism of renal origin; Z99.2 Dependence on renal dialysis; E78.00 Pure hypercholesterolemia, unspecified; F41.9 Anxiety disorder, unspecified; F31.9 Bipolar disorder, unspecified; Z79.899 Other long term (current) drug therapy; Z88.8 Allergy status to other drugs, medicaments and biological substances; Z88.0 Allergy status to penicillin; Z88.5 Allergy status to narcotic agent; E87.70 Fluid overload, unspecified; D63.1 Anemia in chronic kidney disease
CPT/HCPCS: 36415; 71045; 80048; 80053; 82140; 82550; 82553; 83690; 83880; 84484; 85025; 87340; 93005; 96374; J1644; J3411; J3475; J3490; Q0162; Q0163

== ENCOUNTER 2019-05-14 08:34 | Outpatient (CLI) | payer MEDICARE, MEDICAID ==
--- NOTE | 2019-05-14 11:14 | ULT ---
FOCUSED ULTRASOUND OF THE LEFT LATERAL CHEST: 05/14/2019 HISTORY: Mass within the lateral aspect of the chest wall, between the fourth and fifth ribs. COMPARISON: None. FINDINGS: Focused ultrasound in the area of palpable concern demonstrates a circumscribed, hypoechoic mass just deep to the skin, which measures 9 x 8 x 6 mm. It demonstrates subtle increased through transmissio n and no internal blood flow. There is mild echogenicity seen within the lesion. IMPRESSION: Nonspecific hypoechoic lesion in the subcutaneous soft tissues of the left lateral chest wall. This is favored to represent a subcutaneous sebaceous cyst. Of note, this appears stable in size when com pared to a CT examination of the abdomen and pelvis performed 07/25/2018. It has slightly increased in size, when compared to a CT of the chest, abdomen, and pelvis performed on 07/29/2016, at which ti me it measured approximately 6 mm. POS: OFF
== END 2019-05-14 08:35 | disposition home or self-care (01) ==
LOC: BICULT 08:34
PROVIDERS: ATTEND Student in an Organized Health Care Education/Training Program
DX: M79.89 Other specified soft tissue disorders (principal)

== ENCOUNTER 2019-06-10 12:51 | Emergency (ER) | payer MEDICARE, OTHER ==
[2019-06-10] MEDS ORDERED: Fentanyl 100 MCG/2 ML VIAL ONE (13:26)
[2019-06-10] MEDS ORDERED: Ondansetron PF 4 MG/2 ML Vial ONE ×2 (13:26→16:51)
[2019-06-10 14:08] LABS: #Basophils 0.1 thou/uL (0.0-0.2); #Eosinphils 0.1 thou/uL (0.0-0.7); #Monocytes 0.5 thou/uL (0.11-0.59); #Neutrophils 4.6 thou/uL (1.40-6.50); %Basophils 0.7 % (0.0-1.0); %Eosinophils 1.9 % (0.0-10.0); %Lymphocytes 27.3 % (21.0-51.0); %Monocytes 6.7 % (0.0-10.0); %Neutrophils 63.4 % (42.0-75.0); Mean Corpuscular Hemoglobin 28.7 pg (27.0-31.0); Mean Corpuscular Volume 89.9 fL (78.0-98.0); Mean Platelet Volume 8.7 fL (7.4-10.4); Platelet Count 239 thou/uL (130-400); Red Blood Cell (RBC) Count 3.84 mill/uL (4.20-5.40); White Blood Cell (WBC) Count 7.2 thou/uL (4.8-10.8)
[2019-06-10 14:30] LABS: Bilirubin Negative (Negative); Blood, Urine Trace (Negative); Clarity Clear (Clear); Glucose, Urine (Dipstick) 100 mg/dL (Negative); Leukocyte Negative Leu/uL (Negative); Nitrite Negative (Negative); Protein, Urine (Dipstick) 300 mg/dL (Neg-Trace); RBC/HPF 0-3 HPF (0-3); Squamous Epithelial 0-3 HPF (0-3); Urobilinogen Normal mg/dL (Less than 2)
[2019-06-10 14:31] LABS: Bacteria/HPF None Seen HPF (None Seen)
--- NOTE | 2019-06-10 14:58 | RAD ---
Chest one view HISTORY: Fever and chills. COMPARISON: 04/08/2019. FINDINGS: Cardiac silhouette is magnified and upper limits of normal in size. Pulmonary vasculature r emains slightly engorged. Mediastinum is midline with aortic calcification. Linear atelectasis/scar at the lateral aspect of the left lung is stable. No lobar consolidation or evidence of pneumothorax. IMPRESSION: Mild pulmonary vascular congestion, stable. Atherosclerosis.
[2019-06-10 15:07] LABS: Albumin 3.9 g/dL (3.5-5.0)
[2019-06-10 15:09] LABS: Chloride 107 mmol/L (98-107); Sodium 136 mmol/L (136-145)
[2019-06-10 15:10] LABS: Globulin 3.5 g/dL (2.4-3.5); Glucose 109 mg/dL (70-105); Protein, Total 7.4 g/dL (6.0-8.3)
[2019-06-10 15:11] LABS: Anion Gap 19 mmol/L (10-20); Carbon Dioxide 17 mmol/L (22-29)
[2019-06-10 15:12] LABS: Bilirubin, Total 0.5 mg/dL (0.2-1.2)
[2019-06-10 15:13] LABS: Alkaline Phosphatase 49 U/L (40-110); Calc. Creatinine Clearance 0 mL/min (70-130); Estimated GFR-MDRD 4
[2019-06-10 15:14] LABS: BUN (Urea Nitrogen) 45 mg/dL (9.8-20.1)
[2019-06-10 15:15] LABS: AST (SGOT) 11 U/L (5-34); Potassium 7.1 mmol/L (3.5-5.1)
[2019-06-10 15:16] LABS: ALT (SGPT) 8 U/L (8-55); Lipase 14 U/L (8-78)
[2019-06-10] MEDS ORDERED: Acetaminophen 325 MG TAB ONE ×3 (20:59→21:29)
[2019-06-10] MEDS ORDERED: ALPRAZolam 0.25 MG TAB ONE (21:28)
[2019-06-10 22:46] LABS: HBSAg Index 0.12 S/CO (0-0.99); Hep B Surf Ag Non-Reactive S/CO (NonReactive)
== END 2019-06-11 00:07 | disposition home or self-care (01) ==
LOC: ERS 12:51
DX: E87.5 Hyperkalemia (principal); R11.2 Nausea with vomiting, unspecified; E78.5 Hyperlipidemia, unspecified; E78.00 Pure hypercholesterolemia, unspecified; I12.0 Hypertensive chronic kidney disease with stage 5 chronic kidney disease or end stage renal disease; N18.6 End stage renal disease; F31.9 Bipolar disorder, unspecified; F20.9 Schizophrenia, unspecified; F41.9 Anxiety disorder, unspecified; Z99.2 Dependence on renal dialysis; Z79.899 Other long term (current) drug therapy
CPT/HCPCS: 36416; 71045; 80053; 81003; 81015; 83690; 85025; 87086; 87340; 90935; 93005; 96361; 96374; 96375; 96376; G0257; J2405; J3010